=== PATIENT | male | born 1960 | race Caucasian/White ===

== ENCOUNTER 2020-10-08 14:16 | Outpatient (CLI) | payer BC, SELFPAY ==
--- NOTE | ~2020-10-08 | US_ITS ---
EXAMINATION: US venous doppler LE EXAM DATE: 10/08/2020 14:53 INDICATION: History DVT. TECHNIQUE: Multiple grayscale, color flow and Doppler images of the lower extremity deep venous syste ms bilaterally were obtained and reviewed. There is no prior study for comparison. FINDINGS: Right side: The right common femoral, femoral and profunda veins demonstrate normal color flow, respi ratory variation, augmentation and compressibility. Compressibility, color flow confirmed within the right popliteal, posterior tibial, and greater saphenous veins. Left side: The left common femoral, femoral and profunda veins demonstrate normal color flow, respira tory variation, augmentation and compressibility. Compressibility, color flow confirmed within the l eft popliteal, posterior tibial, and greater saphenous veins. IMPRESSION: 1. No lower extremity deep venous thrombosis bilaterally. Reviewed, dictated and finalized at location B.
== END 2020-10-08 14:17 | disposition home or self-care (01) ==
PROVIDERS: PCP Family Medicine; Visit Provider Internal Medicine Cardiovascular Disease
DX: Z86.718 Personal history of other venous thrombosis and embolism (principal)
CPT/HCPCS: 93970

== ENCOUNTER 2021-11-14 14:36 | Outpatient (CLI) | payer BC, SELFPAY ==
--- NOTE | ~2021-11-14 | XR_ITS ---
XR shoulder RT min 2V 11/14/2021 15:08 Indication: Right shoulder pain Procedure: 4 views right shoulder Comparison: No prior studies for comparison. Findings: There is mild polyarticular osteoarthritis of the right shoulder. No fracture or traumatic malalignment. No significant soft tissue abnormality. No foreign bodies. Impression: 1: Mild polyarticular osteoarthritis of the right shoulder. Reviewed, dictated and finalized at location A. Impression: 1: Mild polyarticular osteoarthritis of the right shoulder.
== END 2021-11-14 14:37 | disposition home or self-care (01) ==
PROVIDERS: PCP Family Medicine; Visit Provider Family Medicine
DX: M19.011 Primary osteoarthritis, right shoulder (principal)
CPT/HCPCS: 73030

== ENCOUNTER 2021-11-28 13:53 | Outpatient (CLI) | payer BC, SELFPAY ==
--- NOTE | ~2021-11-28 | US_ITS ---
EXAMINATION: US soft tissue head and neck DATE: 11/28/2021 14:18 INDICATION: Left posterior scalp lump. TECHNIQUE: Multiple grayscale and Doppler ultrasound images of the region of concern at the left post erior scalp were obtained. COMPARISON: None FINDINGS: 2.6 x 2.5 x 1.6 cm mass at the region of concern which demonstrates similar echogenicity and echotext ure as the surrounding subcutaneous fat. There is a second small subdermal complex hypoechoic cystic nodule measuring 10 x 6 x 4 mm with posterior acoustic enhancement and with thin hypoechoic tract ext ending to the skin surface consistent with an epidermoid cyst. IMPRESSION: 1. 2.6 x 2.5 x 1.6 cm mass at the region of concern with appearance consistent with and statistically most likely to represent a lipoma. 2. Additional 10 x 6 x 4 mm more superficial subdermal epidermoid cyst. Reviewed, dictated and finalized at location A.
== END 2021-11-28 13:54 ==
PROVIDERS: PCP Family Medicine; Visit Provider Plastic Surgery
DX: R22.1 Localized swelling, mass and lump, neck (principal); L72.0 Epidermal cyst
CPT/HCPCS: 76536

== ENCOUNTER 2021-12-26 10:53 | Observation (INO) | payer BC, SELFPAY ==
[2021-12-26] VITALS (17 sets, daily range): BP systolic 93–132; BP diastolic 43–99; PULSE 82–138; RESP 15–19; TEMP 36.2–36.8; O2SAT 95–100; BMI 53.0
--- NOTE | ~2021-12-26 | XR_ITS ---
XR chest 2V DATE: 12/26/2021 11:49 INDICATION: Lightheadedness. Atrial fibrillation. TECHNIQUE: PA and lateral views COMPARISON: 10/11/2012 PA and lateral chest FINDINGS: Normal heart size. There is aortic unfolding. No hilar or mediastinal enlargement. There is degenerative spurring and mild dextro scoliosis of the thoracic spine. No pulmonary infiltrate or consolidation, pleural effusion or pulmonary vascular or pneumothorax. IMPRESSION: No active cardiac pulmonary disease Reviewed, dictated and finalized at location B.
--- NOTE | 2021-12-26 11:22 | ECG_ITS ---
Measurements Intervals [place] Rate: 131 P: SD: 0 QRS: 76 QRSD: 177 T: -25 QT: 357 QTc: 527 Interpretive Statements ATRIAL FIBRILLATION WITH RAPID VENTRICULAR RESPONSE RIGHT BUNDLE BRANCH BLOCK ABNORMAL ECG NO PREVIOUS ECG AVAILABLE FOR COMPARISON Electronically Signed On 12-26-2021 11:56:38 CDT by Jamey Gomes D.O.
--- NOTE | 2021-12-26 11:42 | ED.GENADULT ---
HPI - General Adult General Chief complaint: Arrhythmia/Palpitations Stated complaint: irregular heartbeat Time Seen by Provider: 12/26/21 11:25 History of Present Illness HPI narrative: 59-year-old male presenting the emergency department for evaluation of rapid heart rate and generalized weakness. Patient states last night he felt warm and had difficulty sleeping. Patient states this morning symptoms persisted. He presented to his primary care physician for evaluation and was found to be in A. fib with RVR with a heart rate in the 130s to 140s. Patient does have a prior history of [place] in 2016 and follows up with Dr. Garber. Patient denies any prior history of atrial fibrillation. Patient does have history of ureteral stricture and does straight cath. Patient does have history of urinary tract infections, sometimes which he is asymptomatic. Related Data Home Medications Medication Instructions Recorded Confirmed multivitamin 1 tablet PO DAILY 09/03/20 12/26/21 nitroglycerin 0.4 mg sublingual 0.4 mg sublingual Q5M PRN Angina 09/03/20 12/26/21 tablet sildenafil (pulm.hypertension) 20 20 mg PO DAILY PRN Sexual Activity 12/26/21 12/26/21 mg tablet Allergies Allergy/AdvReac Type Severity Reaction Status Date / Time No Known Allergies Allergy Mild Unverified 12/26/21 10:01 Review of Systems Review of Systems: CONSTITUTIONAL: Patient reports feeling flushed and warm all night EYES: Denies visual changes, redness, or discharge. ENT: Denies rhinorrhea, congestion, sore throat, or otalgia. CARDIOVASCULAR: See HPI RESPIRATORY: Denies cough or dyspnea. GASTROINTESTINAL: Denies abdominal pain, nausea, vomiting, or diarrhea. GENITOURINARY: Denies dysuria or hematuria. SKIN: Denies rash or itching. MUSCULOSKELETAL: Denies back pain, joint pain, or myalgia. NEUROLOGIC: Denies headache, numbness, or weakness. [facility] Past Medical History Medical History Back pain Benign essential HTN CAD (coronary artery disease), [place] coronary artery Candidosis of skin Chronic pain Coronary artery disease with recent acute coronary syndrome and history of coronary revascularization Coronary stent patent Discoloration of skin Establishing care with new doctor, encounter for Extreme obesity Hyperlipidemia Hypertensive heart disease Left knee DJD Left leg DVT Lipoma Morbid obesity due to excess calories New onset type 2 diabetes mellitus SALLY (obstructive sleep apnea) Overeating Right knee DJD Right shoulder pain Rotator cuff tendonitis Shoulder arthritis Surgical History Surgical History H/O cystostomy History of cardiac cath History of left knee replacement Family History Family History (Updated 12/26/21 @ 15:32 by Heather Hein RN) Father Diabetes mellitus Cerebrovascular accident Mother Colon cancer Social History Social History (Updated 12/26/21 @ 14:57 by Marilyn Andersen NP) Social History: the patient is and lives with his daughter. he has 2 children. 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 At this point he does not have a durable power of attorney general for healthcare. The patient drinks once a month and denies any drugs but recently was started on phentermine for weight loss. 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 Gender identity (if verbalized by the patient): Male Sexual Orientation (if Verbalized by the Patient): Straight or Heterosexual Sp
[2021-12-26 11:43] LABS: Basophils Percent Auto 0.5 % (0.2-1.2); Eosinophils Absolute Auto 0.1 K/mm3 (0-0.3); Eosinophils Percent Auto 1.6 % (0-4.4); Hematocrit 52.8 % (42.0-52.0); Hemoglobin 17.4 g/dL (14.0-18.0); Immature Granulocyte Absolute 0.03 K/mm3 (0.00-0.031); Immature Granulocyte Percent A 0.3 % (0-0.5); Lymphocytes Absolute Auto 2.06 K/mm3 (0.9-3.2); Lymphocytes Percent Auto 23.9 % (18.3-44.2); Mean Corpuscular Hemoglobin 29.1 pg (26-34); Mean Corpuscular Volume 88.3 fl (80-100); Mean Platelet Volume 10.9 fl (7.4-10.4); Monocytes Absolute Auto 0.6 K/mm3 (0.1-0.6); Monocytes Percent Auto 7.4 % (2.6-8.5); Neutrophils Absolute Auto 5.7 K/mm3 (1.3-6.7); Neutrophils Percent Auto 66.3 % (45.5-73.1); Platelet Count Result 229 k/mm3 (150-375); Red Blood Count 5.98 M/mm3 (4.6-6.20); Red Cell Distribution Width 14.6 % (11.5-14.5); White Blood Count 8.6 K/mm3 (4.5-10.0)
[2021-12-26 11:53] LABS: INR 1.1; Prothrombin Time 13.4 Seconds (11.1-14.7)
[2021-12-26 11:54] LABS: Partial Thromboplastin Time 37.4 SECONDS (22.3-36.8)
[2021-12-26 11:55] LABS: Alanine Aminotransferase 31 U/L (6-50); Albumin Level 4.5 g/dL (3.5-5.1); Alkaline Phosphatase 89 U/L (38-126); Anion Gap 16 mmol/L (8-16); Aspartate Amino Transferase 28 U/L (17-59); Blood Urea Nitrogen 21 mg/dL (9-20); Calcium 9.5 mg/dL (8.4-10.2); Carbon Dioxide 26 mmol/L (22-30); Chloride 97 mmol/L (98-107); Estimated CRCL calculation 128 ml/min; Estimated Glomerular Filt Rate > 60; Glucose 127 mg/dL (65-110); Potassium 3.1 mmol/L (3.4-5.0); Sodium 139 mmol/L (137-145)
[2021-12-26 12:04] LABS: NT Pro B Type Natriuretic Pept 2440 pg/mL (5-100)
[2021-12-26] MEDS: dilTIAZem HCl INJ 25 MG/5 ML VIAL 10 MG IV PUSH (12:04)
[2021-12-26] MEDS: dilTIAZem 100 MG/100 ML 100 MG/100 ML BAG IV CONT (12:04)
[2021-12-26 12:07] LABS: Troponin I < 0.012 ng/mL (0.000-0.034)
--- NOTE | 2021-12-26 13:02 | PC.NURSE ---
Diltiazem titrated to 7.[address] Gómez in room
[2021-12-26] MEDS: POTASSIUM CHLORIDE 20 MEQ PACKET (FOR LIQUID) 40 MEQ PO (13:03)
--- NOTE | 2021-12-26 13:12 | ECG_ITS ---
Measurements Intervals [place] Rate: 115 P: 30 TX: 89 QRS: 68 QRSD: 171 T: 1 QT: 359 QTc: 498 Interpretive Statements ATRIAL FLUTTER/TACHYCARDIA WITH RAPID VENTRICULAR RESPONSE RIGHT BUNDLE BRANCH BLOCK COMPARED TO ECG 12/26/2021 11:25:13 NO SIGNIFICANT CHANGES Electronically Signed On 12-26-2021 14:38:03 CDT by Jamey Gomes D.O.
--- NOTE | 2021-12-26 14:19 | PM.IMHP ---
H&P: HPI History of Present Illness Date/Time: 12/26/21 14:19 Chief Complaint: Palpitation Narrative: this is the obese 61-year-old male patient who came to the emergency room with generalized weakness and irregular heart rate. The patient stated that last night he felt warm and was having difficulty sleeping. The patient recently was placed on phentermine. He has no prior history of atrial fibrillation. But he does have a history of coronary artery disease hyperlipidemia and hypertension. The patient was found to be in AFib with RVR in the heart rate of 130s to 140s. The patient had a myocardial infarction in 2016 and a stent was placed at that time. The patient was given Cardizem IV push and then started on a drip. The patient was also given potassium supplement for potassium level of 3.1. Baseline troponin was noted to be 0.012. BNP is 2440. Chest x-ray was read as no acute cardiac pulmonary disease. The patient stated that he is diabetic but is controlled with diet and his blood sugar was 127 today. The patient stated he was placed on metformin but never took it. Cardiology has been consulted. His drug screen was negative. The patient is being admitted to observation status on the date of service of 12/26/2021 Review of Systems Review of Systems: see HPI All systems reviewed & are unremarkable except as noted in HPI and below Constitutional: Constitutional: Reports as per HPI and Reports no additional constitutional complaints Eyes: Eyes: Reports as per HPI and Reports no additional eye complaints ENT: Reports system reviewed and no additional complaints, except as documented and Reports Normal hearing present Cardiovascular: Cardiovascular: Reports no additional cardiovascular complaints Respiratory: Respiratory: Reports no additional respiratory complaints and Reports no additional respiratory complaints Gastrointestinal: Gastrointestinal: Reports as per HPI and Reports no additional gastrointestinal complaints Musculoskeletal: Musculoskeletal: Reports no additional musculoskeletal complaints Integumentary/Breasts: Skin/Breast: Reports system reviewed and no additional complaints, except as docu and Reports as per HPI Neurologic: Reports system reviewed and no additional complaints, except as documented, Reports as per HPI and Reports Normal hearing present Psychiatric: Psychiatric: Reports no additional psychiatric complaints and Reports as per HPI Endocrine: Endocrine: Reports no additional endocrine complaints Hematologic/Lymphatic: Hematologic/Lymphatic: Reports no additional hematologic/lymphatic complaints Allergic/Immunologic: Allergic/Immunologic: Reports no additional allergic/immunologic complaints [facility] Past Medical History Medical History Back pain Benign essential HTN CAD (coronary artery disease), [place] coronary artery Candidosis of skin Chronic pain Coronary artery disease with recent acute coronary syndrome and history of coronary revascularization Coronary stent patent Discoloration of skin Establishing care with new doctor, encounter for Extreme obesity Hyperlipidemia Hypertensive heart disease Left knee DJD Left leg DVT Lipoma Morbid obesity due to excess calories New onset type 2 diabetes mellitus SALLY (obstructive sleep apnea) Overeating Right knee DJD Right shoulder pain Rotator cuff tendonitis Shoulder arthritis Surgical History Surgical History H/O cystostomy History of cardiac cath History of left knee replacement Family History Family History Father Diabetes mellitus Mother Colon cancer Social History Social History (Updated 12/26/21 @ 14:57 by Marilyn Andersen NP) Social History: the patient is and lives with his daughter. he has 2 children. 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
[2021-12-26 14:25] LABS: Appearance Urine Clear (Clear); Bilirubin Urine 1+ (Negative); Blood Urine Negative (Negative); Color Urine Yellow (Yellow); Glucose Urine UA Negative (Negative); Ketones Urine 1+ mg/dL (Negative); Leukocyte Esterase Ur 1+ LEU/UL (Negative); Nitrate Urine Negative (Negative); Protein Urine Negative (Negative); Urobilinogen Urine 0.2 mg/dL (<2.0); pH Urine 5.5 (5.0-9.0)
[2021-12-26 14:33] LABS: Mucus Urine Rare /lpf; RBC Urine 0-2 /hpf (0-2); Squamous Epithelial Cell Urine Rare /hpf (Few)
[2021-12-26 14:35] LABS: Add Urine Microscopic? YES
[2021-12-26 14:40] LABS: Amphetamine Screen Urine Negative (Negative); Barbiturate Screen Urine Negative (Negative); Benzodiazepines Screen Urine Negative (Negative); Cannabinoid Screen Urine Negative (Negative); Cocaine Screen Urine Negative (Negative); Methadone Screen Urine Negative (Negative); Opiate Screen Urine Negative (Negative); Phencyclidine Screen Urine Negative (Negative)
[2021-12-26 15:07] LABS: Troponin I < 0.012 ng/mL (0.000-0.034)
--- NOTE | 2021-12-26 15:25 | ADMGEN ---
This patient, Jr Herrera, was admitted to IMU Room 204-01. Patient/family oriented to hospital policies and general routines including ID bracelet, bed and alarms, visiting hours, pain management, procedures, bathroom and other care routines, personal items, smoking policy, room service/diet, and visiting hours. Information on how to activate the Rapid Response Team has been discussed. Patient/Family are encouraged to report perceived risks to care and to ask questions if they do not understand what they are told or what they should do.
[2021-12-26 16:17] LABS: Glucose Point of Care 116 mg/dl (65-105)
--- NOTE | 2021-12-26 16:31 | PM.CNCAR ---
Assessment and Plan Assessment and plan (1) Atrial flutter with rapid ventricular response: Code(s): I48.92 - Unspecified atrial flutter Status: Acute Plan This is a 61-year-old gentleman with atrial flutter with rapid ventricular response. Looks more like atypical atrial flutter on ECG. He has atrial flutter of unknown duration. There are no acute onset of symptoms of tachycardia or palpitations today that allow me to determine that this began today or not. In any event his heart rate is well controlled with diltiazem intravenously and he has been anticoagulated with Lovenox. He has underlying coronary artery disease with previous OH/PCI in 2016 at least by his history he says that he has had normal left ventricular function following the event. I am going to therefore continue diltiazem orally to provide rate control as we give him oral diltiazem we can wean off the IV infusion. He needs to be orally systemically anticoagulated. He received Lovenox today I would anticipate starting Xarelto tomorrow. Once he is rate controlled and anticoagulated he probably can be discharged and outpatient cardioversion can be considered subsequently. I will order another echocardiogram. I would also recommend not treating a gentleman like this with phentermine as this could also be a trigger for this arrhythmia. He reports to be compliant with his CPAP treatment for his sleep apnea. Boris Lee MD [facility] History of Present Illness History of Present Illness Consult date/time: 12/26/21 16:31 Reason For Visit: Atrial Fib,Weakness,Elevated BNP Narrative: This is a 61-year-old patient I am seeing at the request of the hospitalist with the diagnosis of atrial fibrillation. He is unknown to me prior to this encounter. According to the records he is a gentleman with a history of coronary artery disease. He says that he was found to have coronary disease in 2016 when he presented to hospital in [place] with symptoms of diaphoresis and paresthesias throughout the entire upper half of his body including both arms. He was airlifted to a hospital with PCI capability and underwent right coronary artery stenting. He states that he did very well after this and had a normal left ventricular ejection fraction following recovery and has not had any additional cardiac problems. Apparently in the interim he has become established with my partner, Dr. Garber for ongoing cardiovascular care and follow-up. His other significant comorbidities include hypertension and morbid obesity, sleep apnea as well as non insulin-dependent diabetes. He was in his usual state of health and went to his primary care physician for a previously scheduled appointment today. While he was there he states he was feeling poorly with the feeling flushed and lightheaded. Upon examination he was found to be tachycardic he was sent to the emergency room from the office where he was found to be in atrial flutter with 2-1 conduction and was admitted to the hospital for further evaluation. I do not have any old EKGs in the hospital records for my review as I dictate this note. I have not yet been down to the office to look at his office records. Likely there are some old EKGs down there. In any event he was placed on intravenous diltiazem and given an injection of Lovenox 1 milligram/kilogram he is in room 204 in the IMU feeling well and offering no other complaints. According to the record he was started on phentermine earlier in the year for appetite suppression. Current BMI is 53.1 Review of Systems Constitutional: Constitutional: Reports lethargy Eyes: Eyes: Reports no additional eye complaints ENT: Reports system reviewed and no additional complaints, except as documented Cardiovascular: Cardiovascular: Reports no additional cardiovascular complaints Respiratory: Respiratory: Reports no additional respiratory complaints Gastrointestinal: Gastrointestinal: Reports no miguel
[2021-12-26] MEDS: dilTIAZem HCL CD 180 MG CAP.ER.24H PO (18:22)
[2021-12-26 21:02] LABS: Glucose Point of Care 205 mg/dl (65-105)
[2021-12-26] MEDS: FUROSEMIDE INJ 40 MG/4 ML VIAL IV PUSH (21:21)
[2021-12-26] MEDS: ENOXAPARIN 100 MG/ML SYRINGE SUB-Q (21:22)
[2021-12-26] MEDS: ENOXAPARIN 80 MG/0.8 ML SYRINGE SUB-Q (21:22)
[2021-12-26] MEDS: ACETAMINOPHEN 325 MG TABLET 650 MG PO (23:17)
[2021-12-26] MEDS: dilTIAZem 100 MG/100 ML 100 MG/100 ML BAG 7.5 MG IV CONT (23:18)
[2021-12-27] VITALS (11 sets, daily range): BP systolic 96–130; BP diastolic 55–72; PULSE 49–88; RESP 14–20; TEMP 36.3–36.8; O2SAT 97–98
--- NOTE | 2021-12-27 | ECHO_ITS ---
Patient Info Name: Jr Herrera Age: 61 years : 1960 Gender: Male Ht: 73 in Wt: 403 lbs BSA: 3.17 m2 HR: 62 bpm BP: 114 / 56 mmHg Heart Rhythm: Sinus Rhythm Technical Quality: Good Exam Date: 12/27/2021 8:01 AM Exam Location: [facility] Patient Status: Outpatient Admit Date: 12/26/2021 Staff Ordering Physician: Boris Lee MD Vascular Technologist Sonographer: Janette Jaffe [facility] Attending Provider: Hawk Jama MD Referring Physician: Jesus FOX; Exam Type: CA echo doppler color flow Study Info Indications I48.0 - Paroxysmal atrial fibrillation Complete two-dimensional, color flow and Doppler transthoracic echocardiogram is performed. Summary 1. Complete two-dimensional, color flow and Doppler transthoracic echocardiogram is performed. 2. Left ventricular hypertrophy with normal dimensions and normal contractility. 3. Grade 1 diastolic noncompliance. 4. Dilated left atrium. 5. Mild mitral annular calcification. 6. Trivial amount of aortic valve regurgitation. Left Ventricle Left ventricular chamber dimension is normal. Left ventricular systolic function is normal, estimated at 60-65%. There is mild concentric increased left ventricular wall thickness. The left ventricular diastolic function is grade I diastolic dysfunction. Right Ventricle Right ventricular chamber dimension is mildly enlarged. Right ventricular systolic function is normal. Left Atria Left atrial chamber dimension is moderately enlarged. Right Atria Right atrial chamber dimension is normal. Aortic Valve The aortic valve is normal. There is trace aortic valve regurgitation. Pulmonic Valve The pulmonic valve is not well visualized. Mitral Valve The mitral valve has normal leaflets. The mitral valve annulus is mildly calcified. Tricuspid Valve The tricuspid valve leaflets are normal. Pericardium/Pleural The pericardium appears normal. Aorta The aortic root size at the sinus of Valsalva is normal. Left Ventricular Outflow Tract Name Value Normal LVOT 2D LVOT Diameter 2.3 cm LVOT Doppler LVOT Peak Gradient 3 mmHg LVOT Mean Gradient 2 mmHg LVOT VTI 21 cm LVOT VTI/AV VTI Ratio 0.8 LVOT Stroke Volume 88 ml LVOT CO 5.2 l/min LVOT CI 1.6 l/min/m2 Pulmonic Valve Name Value Normal PV Doppler PV Peak Gradient 4 mmHg Mitral Valve Name Value Normal MV Doppler
--- NOTE | 2021-12-27 01:38 | ECG_ITS ---
Measurements Intervals [place] Rate: 67 P: 61 MN: 196 QRS: 75 QRSD: 180 T: 34 QT: 516 QTc: 547 Interpretive Statements SINUS RHYTHM RIGHT BUNDLE BRANCH BLOCK ABNORMAL ECG COMPARED TO ECG 12/26/2021 13:18:41 SINUS RHYTHM NOW PRESENT Electronically Signed On 12-27-2021 7:28:35 CDT by Jamey Gomes D.O.
[2021-12-27 06:15] LABS: Basophils Absolute Auto 0.1 K/mm3 (0.0-0.1); Basophils Percent Auto 0.5 % (0.2-1.2); Eosinophils Absolute Auto 0.2 K/mm3 (0-0.3); Immature Granulocyte Absolute 0.04 K/mm3 (0.00-0.031); Immature Granulocyte Percent A 0.4 % (0-0.5); Lymphocytes Absolute Auto 2.06 K/mm3 (0.9-3.2); Lymphocytes Percent Auto 22.2 % (18.3-44.2); Mean Corpuscular HGB Conc 32.7 g/dl (32-36); Mean Corpuscular Hemoglobin 29.1 pg (26-34); Mean Corpuscular Volume 89.1 fl (80-100); Mean Platelet Volume 10.7 fl (7.4-10.4); Monocytes Absolute Auto 0.8 K/mm3 (0.1-0.6); Monocytes Percent Auto 8.6 % (2.6-8.5); Neutrophils Absolute Auto 6.1 K/mm3 (1.3-6.7); Neutrophils Percent Auto 66.3 % (45.5-73.1); Platelet Count Result 228 k/mm3 (150-375); Red Cell Distribution Width 14.6 % (11.5-14.5); White Blood Count 9.3 K/mm3 (4.5-10.0)
[2021-12-27 06:27] LABS: Alanine Aminotransferase 29 U/L (6-50); Albumin Level 3.9 g/dL (3.5-5.1); Alkaline Phosphatase 75 U/L (38-126); Anion Gap 9 mmol/L (8-16); Aspartate Amino Transferase 24 U/L (17-59); Bilirubin,Total 0.7 mg/dL (0.2-1.3); Blood Urea Nitrogen 26 mg/dL (9-20); CRP 1.4 mg/dL (<1.0); Carbon Dioxide 29 mmol/L (22-30); Chloride 101 mmol/L (98-107); Cholesterol 143 mg/dL (0-200); Estimated CRCL calculation 106 ml/min; Estimated Glomerular Filt Rate > 60; Glucose 134 mg/dL (65-110); HDL Direct 31 mg/dL; Hemoglobin A1C 6.6 % (<5.7); Magnesium 1.8 mg/dL (1.6-2.3); Potassium 3.1 mmol/L (3.4-5.0); Sodium 139 mmol/L (137-145); Triglycerides 143 mg/dL (<150)
[2021-12-27 06:37] LABS: LDL Cholesterol Direct 77 mg/dL
[2021-12-27 08:27] LABS: Glucose Point of Care 172 mg/dl (65-105)
--- NOTE | 2021-12-27 08:44 | PM.PNCARD ---
Progress Note: A&P Assessment and Plan (1) Atrial flutter with rapid ventricular response: Code(s): I48.92 - Unspecified atrial flutter Status: Acute Plan This is a 61-year-old gentleman with coronary disease remote history of emergency PCI as detailed in the in consult note. Admitted to the hospital now with PA fibrillation. He has been in sinus rhythm after being treated with diltiazem. He is now on oral diltiazem in sinus rhythm and is asymptomatic. In my opinion he can be discharged at this time. He should remain on diltiazem and Xarelto for his systemic anticoagulation. We will have the office reach out to him for follow-up arrangements after the holiday weekend. Boris Lee MD [facility] Subjective Date/time seen: Date of service: 12/27/21 08:44 Interval history: Follow-up visit in this 61-year-old man with: Paroxysmal atrial fibrillation as well as history of coronary artery disease and previous PCI. Patient came in yesterday with AF/RVR. Following treatment with IV diltiazem a he did convert back to sinus rhythm. On oral diltiazem today in sinus rhythm and is asymptomatic. He was anticoagulated from the emergency room with Lovenox. Feels well offers no complaints this morning Exam Const: General: comfortable and no acute distress Other: Obese man comfortable cooperative no distress HENMT: Mouth: Yes moist mucous membranes Eyes: General: appearance normal, both eyes and all related structures Neck: Neck: supple Other: Carotid pulses are normal bilaterally impossible to assess JVD given his body habitus Resp: Auscultation: clear to auscultation bilaterally Other: Breath sounds are clear but diminished in both lung alcaraz Cardio: Rate: regular rate Rhythm: regular rhythm GI: GI Palp: Yes Soft to palpation Auscultation: normal bowel sounds Skin: General skin exam: normal color Neuro: Other: Alert and oriented x3 Extrem: Other: Adequate distal perfusion Objective Data Vital Signs Vital Signs: Vital Signs - 24 hr 12/26/21 11:19 12/26/21 11:33 12/26/21 12:04 Temperature 36.8 C Pulse Rate 131 H 130 H 131 H Respiratory Rate 16 Blood Pressure 120/72 112/82 Pulse Oximetry 100 Oxygen Delivery Room Air 12/26/21 12:35 12/26/21 13:03 12/26/21 14:25 Temperature Pulse Rate 98 121 H 103 H Respiratory Rate 15 18 Blood Pressure 111/68 129/95 H Pulse Oximetry 97 97 Oxygen Delivery 12/26/21 11:52 12/26/21 12:46 12/26/21 13:16 Temperature Pulse Rate 129 H 96 116 H Respiratory Rate 19 18 16 Blood Pressure 121/78 112/69 113/87 Pulse Oximetry 95 96 98 Oxygen Delivery 12/26/21 14:45 12/26/21 16:00 12/26/21 16:00 Temperature 36.4 C 36.6 C Pulse Rate 83 110 H 82 Respiratory Rate 18 18 Blood Pressure 120/90 113/81 Pulse Oximetry 98 98 Oxygen Delivery 12/26/21 18:00 12/26/21 20:00 12/26/21 20:00 Temperature 36.2 C L Pulse Rate 120 H 138 H 138 H Respiratory Rate 18 Blood Pressure 132/99 H Pulse Oximetry 97 Oxygen Delivery 12/26/21 20:00 12/26/21 22:00 12/26/21 23:18 Temperature Pulse Rate 91 114 H Respiratory Rate Blood Pressure Pulse Oximetry 97 Oxygen Delivery Room Air 12/26/21 23:18 12/26/21 23:57 12/27/21 00:00 Temperature 36.3 C L Pulse Rate 114 H 88 88 Respiratory Rate 18 Blood Pressure 93/43 L Pulse Oximetry 97 Oxygen Delivery 12/27/21 00:00 12/27/21 01:42 12/27/21 04:00 Temperature 36.8 C Pulse Rate 66 63 Respiratory Rate 20 Blood Pressure 103/56 L 114/56 L Pulse Oximetry 97 98 Oxygen Delivery CPAP 12/27/21 02:00 12/27/21 04:00 12/27/21 04:00 Temperature Pulse Rate 63 60 Respiratory Rate Blood Pressure Pulse Oximetry 98 Oxygen Delivery CPAP 12/26/21 23:10 12/26/21 23:10 12/27/21 04:35 Temperature Pulse Rate 84 69 Respiratory Rate 15 20 Blood Pressure Pulse Oximetry 98 98 97 Oxygen Delivery Room Air Auto
[2021-12-27] MEDS: METOPROLOL SUCCINATE EXT REL 50 MG TABCR PO (09:22)
[2021-12-27] MEDS: dilTIAZem HCL CD 180 MG CAP.ER.24H PO (09:22)
[2021-12-27] MEDS: ATORVASTATIN 40 MG TABLET 80 MG BY MOUTH (09:23)
[2021-12-27] MEDS: ASPIRIN 81 MG ENTERIC TABLET PO (09:23)
[2021-12-27] MEDS: POTASSIUM CHLORIDE 20 MEQ PACKET (FOR LIQUID) 40 MEQ PO (10:04)
--- NOTE | 2021-12-27 12:09 | PM.DS ---
DS: Admitting Diagnosis Discharge Date December 27, 2021 Admitting Diagnosis AFib DS: Discharge Diagnosis Discharge Diagnosis (1) Atrial fibrillation with rapid ventricular response: Code(s): I48.91 - Unspecified atrial fibrillation Status: Acute Assessment and Plan: Patient was admitted for atrial fibrillation. He was started on Cardizem drip. Spontaneously converted. Will be sent home on anticoagulation and Cardizem orally. Follow-up cardiology (2) Elevated brain natriuretic peptide (BNP) level: Code(s): R79.89 - Other specified abnormal findings of blood chemistry Status: Acute Assessment and Plan: Echo noted. Lasix on discharge and potassium. (3) Dizziness: Code(s): R42 - Dizziness and giddiness Status: Acute Assessment and Plan: - Could be related to the AFib with RVR. (4) New onset type 2 diabetes mellitus: Code(s): E11.9 - Type 2 diabetes mellitus without complications Status: Acute Assessment and Plan: Continue home meds (5) Extreme obesity: Code(s): E66.8 - Other obesity Status: Acute Assessment and Plan: - Due to excessive calorie intake. (6) Hyperlipidemia: Code(s): E78.5 - Hyperlipidemia, unspecified Status: Acute Assessment and Plan: - Continue with atorvastatin. - Check lipid panel (7) CAD (coronary artery disease), [place] coronary artery: Code(s): I25.10 - Atherosclerotic heart disease of [place] coronary artery without angina pectoris Status: Acute Assessment and Plan: - the patient has a history of coronary artery disease. He has had a cardiac stent in the past. - Continue with atorvastatin Continue aspirin (8) Hypertensive heart disease: Code(s): I11.9 - Hypertensive heart disease without heart failure Status: Acute Assessment and Plan: - The patient is currently on a Cardizem drip. - His antihypertensive medications were held due to the Cardizem drip at this time. Further recommendation per Cardiology. DS: Summary Hospital Course Hospital Course: See discharge plan diagnoses Time Spent with Patient Time attestation: Total time spent providing and/or coordinating discharge services: Exam Const: General: cooperative, comfortable, no acute distress, well developed, alert, awake and Physically active Nutritional Appearance: average body habitus and well nourished Orientation/consciousness: oriented to person, oriented to place, oriented to time and patient oriented x3 Limitations: no limitations HENMT: Head: normal to inspection, No palpable skull fracture present, normocephalic and atraumatic Ears: hearing grossly normal bilaterally and external ears normal General nose exam: Normal external nose present and Normal nares present Eyes: General: appearance normal, both eyes and all related structures Alignment and Position: alignment normal Periorbital: periorbital findings normal Eyelids: eyelids normal Sclera: sclerae normal Pupils: Equal, round and reactive pupils present EOM: EOMs intact bilaterally Neck: Neck: normal visual inspection, full ROM, no lymphadenopathy, trachea midline and supple Other: enlarged neck girth Chest: Chest palpation & inspection: normal inspection of the chest Resp: Effort & Inspection: normal respiratory effort Auscultation: clear to auscultation bilaterally Cardio: Palpation: normal PMI Rate: tachycardic Rhythm: abnormal rhythm irregularly irregular Heart sounds: S1 normal heart sound present and S2 normal heart sound present Peripheral pulses: Peripheral pulses 2+ throughout GI: Inspection: Pannus present and obesity Auscultation: normal bowel sounds Rectal Exam: deferred Back/Spine/Pelvis: Cervical Spine: cervical ROM normal Skin: General skin exam: normal color Lesions: no lesions Rashes: no rashes Trauma: no lacerations or abrasions Wounds: no wounds Hair: normal Nail
[2021-12-27 12:21] LABS: Glucose Point of Care 163 mg/dl (65-105)
== END 2021-12-27 12:50 | disposition home or self-care (01) ==
LOC: ANHED 13:57 → ANHIMU 12-27 12:09
PROVIDERS: Nurse Practitioner; Admitting Provider Internal Medicine; Emergency Provider Emergency Medicine; PCP Family Medicine; Visit Provider Chiropractor
DX: I48.91 Unspecified atrial fibrillation (principal); I48.92 Unspecified atrial flutter; R53.1 Weakness; R79.89 Other specified abnormal findings of blood chemistry; R42 Dizziness and giddiness; E87.6 Hypokalemia; E11.9 Type 2 diabetes mellitus without complications; I25.2 Old myocardial infarction; I11.9 Hypertensive heart disease without heart failure; I25.10 Atherosclerotic heart disease of native coronary artery without angina pectoris; Z95.5 Presence of coronary angioplasty implant and graft; E78.5 Hyperlipidemia, unspecified; E66.01 Morbid (severe) obesity due to excess calories; Z68.43 Body mass index [BMI] 50.0-59.9, adult; G47.33 Obstructive sleep apnea (adult) (pediatric); Z86.718 Personal history of other venous thrombosis and embolism; Z87.891 Personal history of nicotine dependence; Z79.82 Long term (current) use of aspirin; Z79.84 Long term (current) use of oral hypoglycemic drugs; Z79.899 Other long term (current) drug therapy
CPT/HCPCS: 36415; 71046; 80053; 80061; 80307; 81001; 82948; 83036; 83735; 83880; 84443; 84484; 85025; 85610; 85730; 86140; 87086; 87088; 93005; 93306; 96365; 96366; 96372; 96374; 96375; 96376; 99284; 99285; A9270; G0378; G0379; J1650; J1940

== ENCOUNTER 2022-05-23 14:08 | Observation (INO) | payer BC, SELFPAY ==
[2022-05-23] VITALS (31 sets, daily range): BP systolic 135–183; BP diastolic 84–123; PULSE 89–153; RESP 16–25; TEMP 36.2–36.6; O2SAT 97–100; BMI 52.8
--- NOTE | ~2022-05-23 | XR_ITS ---
EXAMINATION: XR chest 1V portable DATE: 05/23/2022 14:38 INDICATION: Chest pain on inspiration. TECHNIQUE: A single frontal view of the chest was obtained. COMPARISON: Chest 2 views 12/26/2021, CT abdomen and pelvis 11/13/2014 FINDINGS: There is mild atelectasis in left lower lung zone. No pleural effusion or pneumothorax. The heart size is normal. IMPRESSION: 1. Mild atelectasis in left lower lung zone. Reviewed, dictated and finalized at location A. DENT HALL DIRECTOR
--- NOTE | ~2022-05-23 | CT_ITS ---
EXAMINATION: CTA chest PE protocol DATE: 05/23/2022 18:46 INDICATION: Pleuritic chest pain. TECHNIQUE: Computed tomography angiography (CTA) of the chest was performed with 100 mL Omnipaque-350 intravenous contrast timed to evaluate the pulmonary arteries. Coronal maximum intensity projection 3D-reconstructions were created by the technologist. Automated exposure control and iterative reconst ruction technique were employed. The dose-length product was 1109.20 mGy-cm. COMPARISON: CT abdomen and pelvis 11/13/2014, cervical spine MRI 08/26/2011 FINDINGS: The lungs demonstrate mild atelectasis. There is a 7 mm nodule in right lower lobe. No pleu ral effusion. There is a chronic 1.8 cm nodule in right thyroid lobe, likely benign. The heart size i s normal. There are coronary artery calcifications. No pericardial effusion. There is no pulmonary em bolus. There is diffuse hepatic steatosis. There are bridging endplate osteophytes at multiple levels in the spine, consistent with diffuse idiopathic skeletal hyperostosis (DISH). There is mild thoraci c spondylosis. IMPRESSION: 1. No pulmonary embolus. 2. 7 mm pulmonary nodule, probably benign. Noncontrast low-dose chest CT is recommended in 6 months. Reviewed, dictated and finalized at location A. DESIGNER IMPRESSION: 1. No pulmonary embolus. 2. 7 mm pulmonary nodule, probably benign. Noncontrast low-dose chest CT is rec ommended in 6 months.
--- NOTE | 2022-05-23 14:11 | ECG_ITS ---
Measurements Intervals [place] Rate: 112 P: [place]: 0 QRS: 17 QRSD: 164 T: -16 QT: 352 QTc: 482 Interpretive Statements SINUS TACHYCARDIA RIGHT BUNDLE BRANCH BLOCK MINIMAL Q WAVES- INFERIOR LEADS BASELINE ARTIFACT- II, III, AVF ABNORMAL ECG COMPARED TO ECG 12/27/2021 00:40:04 SINUS TACHYCARDIA NOW PRESENT Electronically Signed On 05-23-2022 19:20:33 SENIOR CYTOGENETICS LABORATORY DIRECTOR by Jamey Gomes D.O.
--- NOTE | 2022-05-23 14:53 | ED.CHESTPAIN ---
HPI - Chest Pain General Chief Complaint: Chest Pain Stated Complaint: Pain in chest on inspiration Time Seen by Provider: 05/23/22 14:40 Source: RN notes reviewed History of Present Illness HPI narrative: Patient presents emerged department from home for chest pain. Patient states pain has been present for the past 18 hours pain is located over the midsternal chest and does not radiate it is been constant since that time but is worse with deep inspiration and movement and improved with rest. He denies any trauma or injury denies any shortness of breath he denies any fevers or chills abdominal pain nausea vomiting or any other symptoms. States he took ibuprofen approximately 3 hours ago for the pain with no relief patient does have a history of atrial fibrillation is on Xarelto states he has taken all of his normal medications today Related Data Home Medications Medication Instructions Recorded Confirmed multivitamin 1 tablet PO DAILY 09/03/20 04/07/22 nitroglycerin 0.4 mg sublingual 0.4 mg sublingual Q5M PRN Angina 09/03/20 04/07/22 tablet sildenafil (pulm.hypertension) 20 20 mg PO DAILY PRN Sexual Activity 12/26/21 04/07/22 mg tablet semaglutide 1 mg/dose (2 mg/1.5 1 mg subcut WEEKLY 02/24/22 04/07/22 mL) subcutaneous pen injector (Ozempic) Allergies Allergy/AdvReac Type Severity Reaction Status Date / Time No Known Allergies Allergy Mild Verified 05/23/22 14:34 Review of Systems Review of Systems: Gen.: Denies fevers or chills ENT: Denies congestion Respiratory: Denies shortness of breath or cough CV: See HPI GI: Denies abdominal pain nausea, emesis or diarrhea Musculoskeletal: Denies back pain or muscle pain Neuro: Denies numbness, tingling, weakness or focal weakness Skin: Denies rash Except as documented, all other systems reviewed and negative PMFSH Past Medical History Medical History Back pain Benign essential HTN CAD (coronary artery disease), [place] coronary artery Candidosis of skin Chronic pain Coronary artery disease with recent acute coronary syndrome and history of coronary revascularization Coronary stent patent Discoloration of skin Establishing care with new doctor, encounter for Extreme obesity Hyperlipidemia Hypertensive heart disease Left knee DJD Left leg DVT Lipoma Morbid obesity due to excess calories New onset type 2 diabetes mellitus SALLY (obstructive sleep apnea) Overeating Right knee DJD Right shoulder pain Rotator cuff tendonitis Shoulder arthritis Surgical History Surgical History H/O cystostomy History of cardiac cath History of left knee replacement Family History Family History Father Diabetes mellitus Cerebrovascular accident Mother Colon cancer Social History Social History Social History: the patient is and lives with his daughter. he has 2 children. 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 At this point he does not have a durable power of manager system for healthcare. The patient drinks once a month and denies any drugs but recently was started on phentermine for weight loss. 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 Gender identity (if verbalized by the patient): Male Sexual Orientation (if Verbalized by the Patient): Straight or Heterosexu
[2022-05-23 14:57] LABS: Basophils Percent Auto 0.3 % (0.2-1.2); Eosinophils Absolute Auto 0.1 K/mm3 (0-0.3); Eosinophils Percent Auto 1.2 % (0-4.4); Hematocrit 46.5 % (42.0-52.0); Hemoglobin 15.5 g/dL (14.0-18.0); Immature Granulocyte Absolute 0.03 K/mm3 (0.00-0.031); Immature Granulocyte Percent A 0.3 % (0-0.5); Lymphocytes Percent Auto 12.4 % (18.3-44.2); Mean Corpuscular HGB Conc 33.3 g/dl (32-36); Mean Corpuscular Hemoglobin 29.4 pg (26-34); Mean Corpuscular Volume 88.1 fl (80-100); Mean Platelet Volume 10.7 fl (7.4-10.4); Monocytes Absolute Auto 0.7 K/mm3 (0.1-0.6); Monocytes Percent Auto 7.4 % (2.6-8.5); Neutrophils Absolute Auto 7.6 K/mm3 (1.3-6.7); Neutrophils Percent Auto 78.4 % (45.5-73.1); Platelet Count Result 202 k/mm3 (150-375); Red Blood Count 5.28 M/mm3 (4.6-6.20); Red Cell Distribution Width 14.2 % (11.5-14.5); White Blood Count 9.6 K/mm3 (4.5-10.0)
[2022-05-23 15:11] LABS: Alanine Aminotransferase 26 U/L (6-50); Alkaline Phosphatase 77 U/L (38-126); Anion Gap 9 mmol/L (8-16); Aspartate Amino Transferase 19 U/L (17-59); Bilirubin,Total 0.9 mg/dL (0.2-1.3); Blood Urea Nitrogen 19 mg/dL (9-20); Calcium 8.9 mg/dL (8.4-10.2); Carbon Dioxide 25 mmol/L (22-30); Chloride 105 mmol/L (98-107); Estimated CRCL calculation 162 ml/min; Estimated Glomerular Filt Rate > 60; Glucose 110 mg/dL (65-110); Lipase 85 U/L (23-300); Potassium 3.5 mmol/L (3.4-5.0); Sodium 139 mmol/L (137-145)
[2022-05-23 15:15] LABS: INR 1.5; Prothrombin Time 17.1 Seconds (11.1-14.7)
[2022-05-23 15:18] LABS: Partial Thromboplastin Time 48.2 SECONDS (22.3-36.8)
[2022-05-23 15:22] LABS: Troponin I < 0.012 ng/mL (0.000-0.034)
[2022-05-23] MEDS: ASPIRIN 81 MG CHEWABLE TABLET 324 MG PO (16:19)
[2022-05-23] MEDS: MORPHINE SULFATE (*CRX) 2 MG/ML INJ IV PUSH (16:19)
--- NOTE | 2022-05-23 16:44 | PM.IMHP ---
H&P: HPI History of Present Illness Date/Time: 05/23/22 16:44 Chief Complaint: chest pain Narrative: Patient presents emerged department from home for chest pain noticed lower mid sternal chest pain since last night which is not bad at that time went to bed woke up with the chest pain got worse mid afternoon today nonexertional worse when she takes deep breath. Constant pain at x9 or 10 in intensity. Denies any cough fever chills a feels a little short of breath. No abdominal pain nausea vomiting. Did not do anything strenuous yesterday. No obvious injury noted. It took some ibuprofen earlier today with noted the. He had been seen cardiology and had recently started on sotalol for his atrial fibrillation/flutter. He is not sure this is related to the symptoms. His pain is localized and nonradiating. His heart rate has elevated but not hold reports of hypoxia Review of Systems Review of Systems: - CONSTITUTIONAL: Denies weight loss, fever and chills. - HEENT: Denies changes in vision and hearing - RESPIRATORY: Denies SOB and cough. - CV: Denies palpitations and reports CP. - GI: Denies abdominal pain, nausea, vomiting and diarrhea. - : Denies dysuria and urinary frequency. - MSK: Denies myalgia and joint pain. - SKIN: Denies rash and pruritus. - NEUROLOGICAL: Denies headache and syncope. - PSYCHIATRIC: Denies recent changes in mood. Denies anxiety and depression. All systems reviewed & are unremarkable except as noted in HPI and below PMFSH Past Medical History Medical History Back pain Benign essential HTN CAD (coronary artery disease), [place] coronary artery Candidosis of skin Chronic pain Coronary artery disease with recent acute coronary syndrome and history of coronary revascularization Coronary stent patent Discoloration of skin Establishing care with new doctor, encounter for Extreme obesity Hyperlipidemia Hypertensive heart disease Left knee DJD Left leg DVT Lipoma Morbid obesity due to excess calories New onset type 2 diabetes mellitus SALLY (obstructive sleep apnea) Overeating Right knee DJD Right shoulder pain Rotator cuff tendonitis Shoulder arthritis Surgical History Surgical History H/O cystostomy History of cardiac cath History of left knee replacement Family History Family History Father Diabetes mellitus Cerebrovascular accident Mother Colon cancer Social History Social History Social History: the patient is and lives with his daughter. he has 2 children. 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 At this point he does not have a durable power of deputy commonwealth's attorney for healthcare. The patient drinks once a month and denies any drugs but recently was started on phentermine for weight loss. 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 Gender identity (if verbalized by the patient): Male Sexual Orientation (if Verbalized by the Patient): Straight or Heterosexual Spiritual care concerns: No Meds Home Medications and Allergies Home Medications Medication Instructions Recorded Confirmed Type multivitamin 1 tablet PO DAILY 09/03/20 04/07/22 History nitroglycerin 0.4 mg sublingual 0.4 mg sublingual Q5M PRN Angina 09/03/20 04/07/22 History tablet sildenafil (pulm
[2022-05-23 18:17] LABS: Troponin I < 0.012 ng/mL (0.000-0.034)
[2022-05-23 18:37] LABS: Influenza A QL RT-PCR Negative (Negative); Influenza B QL RT-PCR Negative (Negative); RSV RNA, RT-PCR Negative (Negative); SARS-CoV-2 RNA PCR Negative
--- NOTE | 2022-05-23 20:13 | ADMGEN ---
This patient, Jr Herrera, was admitted to IMU Room 206-02 on 05/23/22 at 1957. Patient/family oriented to hospital policies and general routines including ID bracelet, bed and alarms, visiting hours, pain management, procedures, bathroom and other care routines, personal items, smoking policy, room service/diet, and visiting hours. Information on how to activate the Rapid Response Team has been discussed. Patient/Family are encouraged to report perceived risks to care and to ask questions if they do not understand what they are told or what they should do.
[2022-05-23] MEDS: ATORVASTATIN 40 MG TABLET 80 MG PO (21:01)
[2022-05-23] MEDS: RIVAROXABAN 20 MG TABLET PO (21:01)
[2022-05-23] MEDS: MORPHINE SULFATE (*CRX) 4 MG/ML INJ IV PUSH (21:53)
[2022-05-23] MEDS: METOPROLOL TARTRATE INJ 5 MG/5 ML VIAL 2.5 MG IV PUSH (23:11)
[2022-05-23 23:29] LABS: Troponin I < 0.012 ng/mL (0.000-0.034)
[2022-05-24] VITALS (15 sets, daily range): BP systolic 89–132; BP diastolic 59–87; PULSE 74–152; RESP 16–22; TEMP 35.9–36.6; O2SAT 97–100
[2022-05-24] MEDS: SOTALOL HCL 80 MG TABLET PO ×2 (01:00→08:09)
[2022-05-24] MEDS: TIZANIDINE HCL 4 MG TABLET 8 MG PO ×2 (01:00→08:09)
[2022-05-24] MEDS: oxyCODONE/ACETAMINOPHEN (*CRX) 5-325 MG TABLET 1 TABLET PO ×3 (01:02→15:50)
[2022-05-24] MEDS: oxyCODONE HCL (*CRX) 2.5 MG TAB IR PO ×3 (01:02→15:50)
[2022-05-24 04:17] LABS: Basophils Percent Auto 0.2 % (0.2-1.2); Eosinophils Absolute Auto 0.1 K/mm3 (0-0.3); Eosinophils Percent Auto 1.5 % (0-4.4); Hematocrit 43.6 % (42.0-52.0); Hemoglobin 14.1 g/dL (14.0-18.0); Immature Granulocyte Absolute 0.04 K/mm3 (0.00-0.031); Immature Granulocyte Percent A 0.5 % (0-0.5); Lymphocytes Absolute Auto 1.05 K/mm3 (0.9-3.2); Lymphocytes Percent Auto 12.1 % (18.3-44.2); Mean Corpuscular HGB Conc 32.3 g/dl (32-36); Mean Corpuscular Volume 89.7 fl (80-100); Mean Platelet Volume 10.9 fl (7.4-10.4); Monocytes Absolute Auto 0.8 K/mm3 (0.1-0.6); Monocytes Percent Auto 9.5 % (2.6-8.5); Neutrophils Absolute Auto 6.6 K/mm3 (1.3-6.7); Neutrophils Percent Auto 76.2 % (45.5-73.1); Platelet Count Result 203 k/mm3 (150-375); Red Blood Count 4.86 M/mm3 (4.6-6.20); Red Cell Distribution Width 14.6 % (11.5-14.5); White Blood Count 8.7 K/mm3 (4.5-10.0)
[2022-05-24 04:25] LABS: Alanine Aminotransferase 21 U/L (6-50); Albumin Level 3.5 g/dL (3.5-5.1); Alkaline Phosphatase 63 U/L (38-126); Anion Gap 8 mmol/L (8-16); Aspartate Amino Transferase 16 U/L (17-59); Blood Urea Nitrogen 18 mg/dL (9-20); Calcium 8.2 mg/dL (8.4-10.2); Carbon Dioxide 25 mmol/L (22-30); Chloride 105 mmol/L (98-107); Estimated CRCL calculation 127 ml/min; Estimated Glomerular Filt Rate > 60; Glucose 144 mg/dL (65-110); Potassium 3.2 mmol/L (3.4-5.0); Sodium 138 mmol/L (137-145)
[2022-05-24] MEDS: hydroCHLOROthiazide 25 MG TABLET PO (08:09)
[2022-05-24] MEDS: LOSARTAN POTASSIUM 100 MG TABLET PO (08:10)
[2022-05-24] MEDS: CLOBETASOL PROPIONATE 0.05% CREAM 15 GM 1 APPLIC TOPICAL (08:11)
--- NOTE | 2022-05-24 08:42 | PM.CNCAR ---
Assessment and Plan Assessment and plan (1) Atrial flutter: Code(s): I48.92 - Unspecified atrial flutter Status: Acute (2) Chest pain: Code(s): R07.9 - Chest pain, unspecified Status: Acute Plan This is a 61-year-old man with coronary disease, previous RCA intervention, morbid obesity and sleep apnea presenting to the hospital with chest pain that is inflammatory chest wall pain in my opinion there is no evidence of acute coronary syndrome and this is unrelated to his atrial arrhythmia. With regard to his arrhythmia we will switch him back to diltiazem and metoprolol which is his request/decision. He says that he does not feel well taking sotalol and does not wish to take it any longer. I will start some anti-inflammatory medication for this chest pain and as an outpatient consider referral to electrophysiology for consideration of alternative means of rhythm control. He is wishing to take antiarrhythmic drug therapy at this time Boris Lee MD [facility] History of Present Illness History of Present Illness Consult date/time: 05/24/22 08:42 Reason For Visit: chest pain, atrial flutter Narrative: This is a 61-year-old man that I am seeing at the request of the hospitalist this morning because of atrial arrhythmias. Patient is known to me from office follow-up with a history of both coronary artery disease and atrial fibrillation. He came to the hospital emergency room last evening because of the development of chest pain that occurred yesterday. He states the discomfort was relatively sudden in onset and began in the morning with symptoms of sharp central chest discomfort that occurs when he tries to take a breath. With any respiratory effort he says he has relatively intense sharp chest pain. The discomfort is not associated with a sense of being short of breath nausea vomiting or diaphoresis. He became concerned about this and came to the emergency room for evaluation. In the emergency room his electrocardiogram shows atrial flutter with a right bundle branch block pattern which is unchanged from old ECGs. His flutter is slow atypical flutter with has heart rate is in the 100-110. He appeared to be hemodynamically stable otherwise. He was admitted to the hospital for further evaluation and management. He has had his series of troponin levels done all of which have remained negative. He is being seen in this situation in the hospital today. The patient is known to have coronary artery disease and in 2016 presented with ischemic chest pain elsewhere and underwent a right coronary interventional procedure and has done well since then. I became acquainted with this patient in October of 2021 when he came to this hospital with an episode of paroxysmal atrial fibrillation. He was given diltiazem which provided rate control he then spontaneously converted back to sinus rhythm he had been managed with diltiazem in the beta-daphne as well as Xarelto since then. As it happens I saw this patient in the office just a couple of weeks ago and he was reporting episodes of intermittent palpitations where he was having atrial fibrillation identified by his smart watch lasting about 8-10 hours per episode. At that time I elected to transition him from the previous medical regimen to sotalol and see him in about a month in for follow-up. The patient is ECG now rather than atrial fibrillation shows a the atypical atrial flutter as described above. The patient is otherwise not having any other complaints. He did want to tell me that he thought that he felt better on the combination of metoprolol and diltiazem and does not wish to take sotalol any longer. Had a long discussion with the patient about rhythm control versus rate control strategies for these types of atrial arrhythmias. Review of Systems Constitutional: Constitutional: Reports no additional constitutional complaints and Reports lethargy Eyes: Eyes: Reports no additio
[2022-05-24] MEDS: IBUPROFEN 600 MG TABLET PO (09:21)
[2022-05-24] MEDS: ASPIRIN 81 MG ENTERIC TABLET PO (12:52)
--- NOTE | 2022-05-24 13:26 | PM.DS ---
DS: Admitting Diagnosis Discharge Date 05/24/2022 Admitting Diagnosis chest pain DS: Discharge Diagnosis Discharge Diagnosis (1) PAF (paroxysmal atrial fibrillation): Code(s): I48.0 - Paroxysmal atrial fibrillation Status: Acute (2) Atrial flutter with rapid ventricular response: Code(s): I48.92 - Unspecified atrial flutter Status: Acute (3) Diastolic dysfunction without heart failure: Code(s): I51.89 - Other ill-defined heart diseases Status: Acute (4) Coronary artery disease with recent acute coronary syndrome and history of coronary revascularization: Code(s): I25.10 - Atherosclerotic heart disease of [place] coronary artery without angina pectoris; I24.9 - Acute ischemic heart disease, unspecified; Z98.61 - Coronary angioplasty status Status: Acute (5) Muscle spasms of neck: Code(s): M62.838 - Other muscle spasm Status: Acute (6) Psoriasis: Code(s): L40.9 - Psoriasis, unspecified Status: Acute (7) Diabetes mellitus: Code(s): E11.9 - Type 2 diabetes mellitus without complications Status: Acute (8) Extreme obesity: Code(s): E66.8 - Other obesity Status: Acute (9) Chest pain: Code(s): R07.9 - Chest pain, unspecified Status: Acute DS: Summary Hospital Course Hospital Course: # chest pain:? Atypical localized.? Pleuritic in nature.? Ekg with nonspecific st t cahnges. initial troponin neg. get serial ce. which remain negative out ACS. cardiology consulted.? Discussed other differentials.? Musculoskeletal/costochondritis.? Possibility of PE.? Agreeable for CTA to further evaluate . CTA done negative for PE. Does show 7 mm pulmonary nodule probably benign noncontrast low-dose CT chest recommended in 6 months. # newly detected 7 mm pulmonary nodule repeat low-dose CT chest in 6 months. # aflutter/afib: ekg seems like sinus rhythm. monitor on telemetry. Was in out of a flutter with controlled rate. He had felt unwell since switched to sotalol week 2. He wanted to switch back to metoprolol and diltiazem which she was on prior to sotalol. Cardiology had discussed this with him and decision was made to switch back to metoprolol and diltiazem. He will continue to follow up with Cardiology on outpatient basis. Will continue on Xarelto for anticoagulation. # morbid obeisty BMI 53 on semaglutide.? Has not been taking his phentermine # DM2 on semaglutide. # HTN: Resume home medication # HLP:? Medication # SALLY on CPAP # Chronic back pain: sees pain mgmt. on COT # DVT proph: xarelto Time Spent with Patient Time attestation: Total time spent providing and/or coordinating discharge services: 35 minutes Exam Narrative: GENERAL: The patient is well developed, not in acute distress HEENT: Nonicteric sclerae, PERRLA, EOMI. Oropharynx clear. Moist mucous membranes. Conjunctivae appear well perfused. CHEST: Chest wall is nontender. HEART: Regular rate and rhythm without murmur, rubs, or gallops localized tenderness in right parasternal border LUNGS: Clear to auscultation bilaterally. no respiratory distress ABDOMEN: Soft, positive bowel sounds, non-tender, no organomegaly. SKIN: No rash, no excessive bruising, petechiae, or purpura. NEUROLOGIC: Cranial nerves II-XII intact, alert and oriented x 3, no gross motor deficits EXTREMITIES: no edema, cyanosis or clubbing DS: Data Data Completed and Pending Labs on day of discharge: Labs from last 24 hours 05/24/22 05/24/22 05/23/22 03:48 03:48 22:26 WBC 8.7 RBC 4.86 Hgb 14.1 Hct 43.6 MCV 89.7 MCH 29.0 MCHC 32.3 RDW 14.6 H Plt Count 203 MPV 10.9 H Immature Gran % (Auto) 0.5 Neut % (Auto) 76.2 H Lymph % (Auto) 12.1 L [place] % (Auto) 9.5 H Eos % (Auto) 1.5 Baso % (Auto) 0.2 Lymph # (Auto) 1.05 [place] # (Auto) 0.8 H Eos # (Auto) 0.1 Baso # (Auto) 0.0 Abs Immat Gran (auto) 0.04 H Absolute Neuts (auto) 6.6
[2022-05-24] MEDS: POTASSIUM CHLORIDE 20 MEQ TABLET 40 MEQ PO (13:27)
--- NOTE | 2022-05-24 15:15 | PC.NURSE ---
1500: Patient called to report that he has no pain and woyuld like to be discharged. Dr Holt notified and he expressed concern for the patient's low blood pressure. Repeat VS; YBC=834/87.
== END 2022-05-24 16:25 | disposition home or self-care (01) ==
LOC: ANHED 17:00 → ANHIMU 18:55
PROVIDERS: Emergency Medicine; Admitting Provider Internal Medicine; Emergency Provider Emergency Medicine; PCP Family Medicine; Visit Provider Internal Medicine
DX: R07.9 Chest pain, unspecified (principal); I48.92 Unspecified atrial flutter; I48.0 Paroxysmal atrial fibrillation; Z79.01 Long term (current) use of anticoagulants; I10 Essential (primary) hypertension; I25.10 Atherosclerotic heart disease of native coronary artery without angina pectoris; E66.01 Morbid (severe) obesity due to excess calories; Z68.43 Body mass index [BMI] 50.0-59.9, adult; E11.9 Type 2 diabetes mellitus without complications; Z87.891 Personal history of nicotine dependence; Z86.718 Personal history of other venous thrombosis and embolism; Z96.652 Presence of left artificial knee joint; I51.89 Other ill-defined heart diseases; L40.9 Psoriasis, unspecified; M62.838 Other muscle spasm; Z98.61 Coronary angioplasty status; I24.9 Acute ischemic heart disease, unspecified; Z20.822 Contact with and (suspected) exposure to COVID-19
CPT/HCPCS: 36415; 71045; 71275; 80053; 83690; 84484; 85025; 85610; 85730; 87637; 93005; 96374; 96375; 96376; 99285; A9270; G0378; J2270; Q9967

== ENCOUNTER 2022-07-21 10:58 | Outpatient (CLI) | payer BC, SELFPAY ==
--- NOTE | ~2022-07-21 | XR_ITS ---
Clinical Indication: Cough PA and lateral views of the chest: Comparison: 05/23/2022 Findings: The lungs are clear, without evidence of focal consolidation or pleural effusion. Cardiome diastinal silhouette is within normal limits. Bones and soft tissues are unremarkable. Impression: Normal chest. Reviewed, dictated and finalized at location . Impression: Normal chest.
[2022-07-21 11:57] LABS: Basophils Absolute Auto 0.1 K/mm3 (0.0-0.1); Basophils Percent Auto 0.6 % (0.2-1.2); Eosinophils Absolute Auto 0.2 K/mm3 (0-0.3); Eosinophils Percent Auto 2.2 % (0-4.4); Hematocrit 46.6 % (42.0-52.0); Hemoglobin 14.9 g/dL (14.0-18.0); Immature Granulocyte Absolute 0.05 K/mm3 (0.00-0.031); Immature Granulocyte Percent A 0.6 % (0-0.5); Lymphocytes Absolute Auto 2.11 K/mm3 (0.9-3.2); Lymphocytes Percent Auto 27.3 % (18.3-44.2); Mean Corpuscular Volume 90.7 fl (80-100); Mean Platelet Volume 10.1 fl (7.4-10.4); Monocytes Absolute Auto 0.6 K/mm3 (0.1-0.6); Monocytes Percent Auto 7.8 % (2.6-8.5); Neutrophils Absolute Auto 4.8 K/mm3 (1.3-6.7); Neutrophils Percent Auto 61.5 % (45.5-73.1); Platelet Count Result 249 k/mm3 (150-375); Red Blood Count 5.14 M/mm3 (4.6-6.20); Red Cell Distribution Width 14.9 % (11.5-14.5); White Blood Count 7.7 K/mm3 (4.5-10.0)
[2022-07-21 12:22] LABS: Alanine Aminotransferase 30 U/L (6-50); Albumin Level 4.1 g/dL (3.5-5.1); Alkaline Phosphatase 86 U/L (38-126); Anion Gap 11 mmol/L (8-16); Aspartate Amino Transferase 25 U/L (17-59); Bilirubin,Total 0.8 mg/dL (0.2-1.3); Blood Urea Nitrogen 19 mg/dL (9-20); Carbon Dioxide 25 mmol/L (22-30); Chloride 102 mmol/L (98-107); Estimated Glomerular Filt Rate > 60; Glucose 151 mg/dL (65-110); Potassium 3.5 mmol/L (3.4-5.0); Sodium 138 mmol/L (137-145)
[2022-07-21 12:56] LABS: Hemoglobin A1C 7.1 % (<5.7)
== END 2022-07-21 10:59 | disposition home or self-care (01) ==
PROVIDERS: PCP Family Medicine; Visit Provider Nurse Practitioner Gerontology
DX: R05.9 Cough, unspecified (principal); E11.9 Type 2 diabetes mellitus without complications
CPT/HCPCS: 36415; 71046; 80053; 83036; 85025

== ENCOUNTER 2022-07-27 13:34 | Outpatient (CLI) | payer BC, SELFPAY ==
--- NOTE | ~2022-07-27 | MR_ITS ---
EXAMINATION: MR shoulder RT wo con DATE: 07/27/2022 14:32 INDICATION: Right shoulder pain TECHNIQUE: Magnetic resonance imaging (MRI) of the right shoulder was performed without intravenous c ontrast. Sequences included axial PD-weighted FS FSE, coronal oblique PD-weighted FS FSE, coronal obl ique T2-weighted FS FSE, sagittal PD-weighted FS FSE, and sagittal T1-weighted SE. COMPARISON: None. FINDINGS: Coracoacromial arch: The acromion undersurface is curved in morphology (type II). The coracoacromial ligament is normal. M oderate acromioclavicular osteoarthritis. Rotator cuff: Mild supraspinatus tendinopathy with severe articular sided tear extending 1.5 cm AP along the superi or facet footplate of the tendon with localized full-thickness perforations. The bursal side of the t endon overlying the tear appears frayed with small focal full-thickness perforations with residual le ft-sided tendon material of indeterminate residual functional integrity. Mild subscapularis and infra spinatus tendinopathy without tear. The teres minor tendon is normal however there is severe fatty at rophy of the portion of the teres minor muscle associated with the tendinous insertion. No evident at rophy of the portion of the muscle belly associated with the muscular insertion. No evident impinging lesion identified along the course of the axillary nerve including at the quadrilateral space. Remai nder of the rotator cuff musculature is unremarkable. Biceps tendon, glenoid labrum and glenohumeral cartilage: Long head of the biceps tendon is normal. Small SLAP tear along the superior glenoid labrum. Mild par tial thickness cartilage loss with smooth chondral surface and without degenerative subchondral bliss es along both the inferomedial and anterosuperior medial aspect of the humeral head. Fluid: Small glenohumeral joint effusion with synovitis at the axillary recess. There is proportional extens ion of fluid along with mild synovitis along the long head biceps tendon sheath. There is also small amount of fluid in the subacromial/subdeltoid bursa likely arising from the joint space and extending through the full-thickness rotator cuff perforation. No loose osteochondral bodies. Bones: Normal marrow signal with no edema, fracture or pathologic marrow replacing process. IMPRESSION: 1. Severe articular sided tear along the superior facet footplate of the supraspinatus tendon with sm all amount of residual frayed tendon material along the bursal surface which is of indeterminate func tional integrity with focal small full-thickness perforations. 2. Mild glenohumeral osteoarthritis with SLAP tear at the superior glenoid labrum. 3. Moderate acromioclavicular osteoarthritis. 4. Fatty atrophy of the portion of the teres minor muscle belly attached to the still intact tendon o f indeterminate etiology. Reviewed, dictated and finalized at location A. IMPRESSION: 1. Severe articular sided tear along the superior facet footplate of the supras pinatus tendon with small amount of residual frayed tendon material along the b ursal surface which is of indeterminate functional integrity with focal small f ull-thickness perforations. 2. Mild glenohumeral osteoarthritis with SLAP tear at the superior glenoid labr um. 3. Moderate acromioclavicular osteoarthritis. 4. Fatty atrophy of the portion of the teres minor muscle belly attached to the still intact tendon of indeterminate etiology.
== END 2022-07-27 13:35 | disposition home or self-care (01) ==
PROVIDERS: PCP Family Medicine; Visit Provider Nurse Practitioner Family
DX: M19.011 Primary osteoarthritis, right shoulder (principal); S46.811A Strain of other muscles, fascia and tendons at shoulder and upper arm level, right arm, initial encounter; X58.XXXA Exposure to other specified factors, initial encounter
CPT/HCPCS: 73221

== ENCOUNTER 2023-03-10 09:47 | Outpatient (CLI) | payer BC, SELFPAY ==
[2023-03-10 11:39] LABS: Hemoglobin A1C 6.4 % (<5.7)
[2023-03-10 12:21] LABS: Creatinine Urine 59.2 mg/dL
[2023-03-10 12:26] LABS: MALB Creatinine Ratio 12.5 mg/g (0-30); Microalbumin Urine Random 7.4 mg/L (0-16.7)
== END 2023-03-10 09:48 | disposition home or self-care (01) ==
LOC: ANHLAB 09:48
PROVIDERS: PCP Family Medicine; Referring Provider Family Medicine; Visit Provider Physician Assistant
DX: E11.21 Type 2 diabetes mellitus with diabetic nephropathy (principal); I10 Essential (primary) hypertension
CPT/HCPCS: 36415; 82043; 83036

== ENCOUNTER 2023-03-11 10:40 | Outpatient (CLI) | payer BC, SELFPAY ==
--- NOTE | ~2023-03-11 | CT_ITS ---
CT Scan of the Chest without Contrast: Clinical Indication: Solitary pulmonary nodule Technique: Contiguous sections were acquired throughout the chest without intravenous contrast. Dose reduction technique was used on this scan by utilizing automated exposure control and iterative recon struction technique. The dose-length product (DLP) was 677.74 mGy-cm. COMPARISON: 05/15/2022 Findings: There is no evidence of any significant mediastinal, hilar or axillary lymphadenopathy. Coronary vero ry calcium cages are present. There is no evidence of pleural or pericardial effusion. Stable 7 mm nodule noted in the posterior, superior segment right lower lobe. No new pulmonary nodule identified. Images through the upper abdomen reveal small layering gallstones/gallbladder sludge. Impression: Stable 7 mm right lower lobe pulmonary nodule. Cholelithiasis/gallbladder sludge. Reviewed, dictated and finalized at [facility]. ALT SCREED OPERATOR Impression: Stable 7 mm right lower lobe pulmonary nodule. Cholelithiasis/gallbladder sludge.
== END 2023-03-11 10:41 | disposition home or self-care (01) ==
LOC: ANHIMG 10:43
PROVIDERS: PCP Family Medicine; Visit Provider Physician Assistant
DX: R91.1 Solitary pulmonary nodule (principal); K80.20 Calculus of gallbladder without cholecystitis without obstruction
CPT/HCPCS: 71250

== ENCOUNTER 2023-06-23 10:46 | Outpatient (CLI) | payer BC, SELFPAY ==
[2023-06-23 11:42] LABS: Basophils Percent Auto 0.4 % (0.2-1.2); Eosinophils Absolute Auto 0.2 K/mm3 (0-0.3); Eosinophils Percent Auto 2.7 % (0-4.4); Hemoglobin 15.3 g/dL (14.0-18.0); Immature Granulocyte Absolute 0.03 K/mm3 (0.00-0.031); Immature Granulocyte Percent A 0.4 % (0-0.5); Lymphocytes Absolute Auto 1.71 K/mm3 (0.9-3.2); Lymphocytes Percent Auto 24.1 % (18.3-44.2); Mean Corpuscular HGB Conc 31.2 g/dl (32-36); Mean Corpuscular Hemoglobin 27.9 pg (26-34); Mean Corpuscular Volume 89.4 fl (80-100); Mean Platelet Volume 11.1 fl (7.4-10.4); Monocytes Absolute Auto 0.5 K/mm3 (0.1-0.6); Monocytes Percent Auto 6.8 % (2.6-8.5); Neutrophils Absolute Auto 4.7 K/mm3 (1.3-6.7); Neutrophils Percent Auto 65.6 % (45.5-73.1); Platelet Count Result 186 k/mm3 (150-375); Red Blood Count 5.48 M/mm3 (4.6-6.20); Red Cell Distribution Width 16.4 % (11.5-14.5); White Blood Count 7.1 K/mm3 (4.5-10.0)
[2023-06-23 11:55] LABS: Alanine Aminotransferase 40 U/L (6-50); Albumin Level 4.1 g/dL (3.5-5.1); Alkaline Phosphatase 96 U/L (38-126); Anion Gap 5 mmol/L (8-16); Aspartate Amino Transferase 36 U/L (17-59); Bilirubin,Total 0.8 mg/dL (0.2-1.3); Blood Urea Nitrogen 20 mg/dL (9-20); Calcium 9.9 mg/dL (8.4-10.2); Carbon Dioxide 30 mmol/L (22-30); Chloride 105 mmol/L (98-107); Cholesterol 138 mg/dL (0-200); Estimated Glomerular Filt Rate > 60; Glucose 159 mg/dL (65-110); HDL Direct 32 mg/dL; Potassium 3.7 mmol/L (3.4-5.0); Sodium 140 mmol/L (137-145); Triglycerides 123 mg/dL (<150)
[2023-06-23 11:58] LABS: Appearance Urine Clear (Clear); Bacteria Urine None Seen /hpf; Bilirubin Urine Negative (Negative); Blood Urine Negative (Negative); Color Urine Yellow (Yellow); Glucose Urine UA Negative (Negative); Ketones Urine Negative (Negative); Leukocyte Esterase Ur Trace LEU/UL (Negative); Nitrate Urine Negative (Negative); Non Pathogenic Casts 0-2; Protein Urine 2+ mg/dL (Negative); RBC Urine 0-2 /hpf (0-2); Specific Grav Ur 1.014 (1.001-1.035); Squamous Epithelial Cell Urine None seen /hpf (Few); Urobilinogen Urine 0.2 mg/dL (<2.0)
[2023-06-23 12:02] LABS: Add Urine Microscopic? YES
[2023-06-23 12:09] LABS: LDL Cholesterol Direct 86 mg/dL
[2023-06-23 12:23] LABS: Hemoglobin A1C 8.4 % (<5.7)
== END 2023-06-23 10:47 | disposition home or self-care (01) ==
LOC: ANHLAB 10:48
PROVIDERS: PCP Family Medicine; Visit Provider Physician Assistant
DX: R30.0 Dysuria (principal); E11.9 Type 2 diabetes mellitus without complications; E78.5 Hyperlipidemia, unspecified; I10 Essential (primary) hypertension
CPT/HCPCS: 36415; 80053; 80061; 81001; 83036; 85025; 87086

== ENCOUNTER 2023-07-03 10:52 | Outpatient (CLI) | payer BC, SELFPAY ==
--- NOTE | ~2023-07-03 | MR_ITS ---
EXAMINATION: MR lumbar spine wo con DATE: 07/03/2023 11:36 INDICATION: Lumbar radicular pain. Low back pain. TECHNIQUE: Magnetic resonance imaging (MRI) of the lumbar spine was performed without intravenous con trast. COMPARISON: None FINDINGS: Bone alignment is normal. There is mild chronic anterior wedging of T12 vertebral bodies. T here is mildly decreased disc height at L4-L5. The distal spinal cord signal intensity is normal. The conus medullaris is at L1. The following disc levels are specifically discussed: L1-L2: There is a left central extrusion. There is moderate bilateral facet joint osteoarthritis. The re is no neural foraminal stenosis. There is mild central canal stenosis. L2-L3: The disc is bulging. There is moderate bilateral facet joint osteoarthritis. There is mild cassie ateral neural foraminal stenosis. There is no central canal stenosis. L3-L4: The disc is bulging. There is severe bilateral facet joint osteoarthritis. There is hypertroph y of the ligamentum flavum. There is mild bilateral neural foraminal stenosis. There is mild central canal stenosis. L4-L5: The disc is bulging and has an annular fissure. There is severe bilateral facet joint osteoart hritis. There is hypertrophy of the ligamentum flavum. There is mild bilateral neural foraminal steno sis. There is mild central canal stenosis. L5-S1: The disc does not extend beyond the endplate margin. There is severe bilateral facet joint ost eoarthritis. There is mild right neural foraminal stenosis. There is no central canal stenosis. IMPRESSION: 1. Mild lumbar spondylosis. Reviewed, dictated and finalized at location E. ENT FINANCIAL SPECIALIST IMPRESSION: 1. Mild lumbar spondylosis.
== END 2023-07-03 10:53 ==
LOC: MICIMG 10:53
PROVIDERS: PCP Family Medicine; Visit Provider Nurse Practitioner Family
DX: M47.26 Other spondylosis with radiculopathy, lumbar region (principal)
CPT/HCPCS: 72148

== ENCOUNTER 2024-03-17 11:58 | Outpatient (CLI) | payer BC, SELFPAY ==
[2024-03-17 12:41] LABS: Alanine Aminotransferase 33 U/L (6-50); Albumin Level 4.5 g/dL (3.5-5.1); Alkaline Phosphatase 77 U/L (38-126); Anion Gap 6 mmol/L (4-12); Aspartate Amino Transferase 31 U/L (17-59); Blood Urea Nitrogen 24 mg/dL (9-20); Calcium 9.5 mg/dL (8.4-10.2); Carbon Dioxide 29 mmol/L (22-30); Chloride 104 mmol/L (98-107); Estimated Glomerular Filt Rate > 60; Glucose 121 mg/dL (65-110); Sodium 139 mmol/L (137-145)
== END 2024-03-17 11:59 | disposition home or self-care (01) ==
LOC: ANHLAB 11:59
PROVIDERS: PCP Family Medicine; Visit Provider Family Medicine
DX: I10 Essential (primary) hypertension (principal); E11.9 Type 2 diabetes mellitus without complications
CPT/HCPCS: 36415; 80053; 83036

== ENCOUNTER 2024-06-02 14:56 | Outpatient (CLI) | payer OTHER, SELFPAY ==
--- NOTE | ~2024-06-02 | XR_ITS ---
CHEST RADIOGRAPH, PA AND LATERAL CLINICAL HISTORY: R05.9 - Cough, unspecified . COMPARISON: 07/21/2022 TECHNIQUE: PA and lateral views of the chest. FINDINGS The cardiomediastinal silhouette is unremarkable. The lungs are clear. Visualized osseous structures and soft tissues are unremarkable. IMPRESSION: No focal infiltrate or effusion. Reviewed, dictated and finalized at location A. [employer] SALES SPECIALIST
--- OUTSIDE RECORDS SUMMARY | 2024-06-02 15:00 | XMS_ITS | Referral Summary ---
Author Organization [facility] Address [address] [place] [address] Care Team Providers Care Substance Abuse Counselor Name Role Phone Boris Lee MD Unavailable [phone] Lizbeth Mccoy MD Primary Care Provider + Source Comments [facility],non-owned Affiliates and Associated Physician Practices is amultiple site organization consisting of ambulatory clinics and hospital sitesin [place], [place], [place] and [place]. This disclosure is being madepursuant to the Care Everywhere program and may not contain all information available regarding this patient. Last updated 18.[facility] Allergies No known active allergies Medications * Be aware that medications may not be up to date on this document. Alwaysverify current medications with the patient. Medication Sig Dispensed Refills Start Date End Date Status metoprolol succinate XL 24hr (Toprol XL) 100 MG tablet Take 1 (one) tablet by mouth once daily 08/02/2022 Active Xarelto 20 MG tablet Take 1 (one) tablet by mouth as directed 08/10/2022 Active tiZANidine (Zanaflex) 4 MG tablet Take 1 (one) tablet by mouth as directed 08/04/2022 Active losartan-hydroCHL OROthiazide (Hyzaar) 100-25 MG tablet Take 1 (one) tablet by mouth once daily 08/03/2022 Active aspirin EC (Ecotrin) 81 MG tablet Take 1 (one) tablet by mouth once daily Active oxyCODONE-acetami nophen (Percocet) 7.5-325 MG tablet Take 1 (one) tablet by mouth every 6 hours as needed for Pain Active docusate sodium (Colace) 100 MG capsule Take 1 (one) capsule by mouth 2 times daily 60 capsule 09/28/2022 Active Additional Information Patient taking differently:100 mg Oral2 TIMES DAILY PRN, Constipation, Reported on 03/17/2023 metFORMIN (Glucophage) 500 MG tablet Take 1 (one) tablet by mouth 2 times daily with morning and evening meal 12/04/2022 Active Farxiga 5 MG tablet Take 1 (one) tablet by mouth once daily 01/11/2023 Active atorvastatin (Lipitor) 80 MG tablet Take 1 (one) tablet by mouth at bedtime Active dilTIAZem SR 24hr (Dilt-XR) 240 MG capsule Take 1 (one) capsule by mouth every morning 01/06/2023 Active ibuprofen (Motrin) 800 MG tablet Take 1 (one) tablet by mouth every 8 hours as needed 04/05/2023 Active Ozempic, 2 MG/DOSE, 8 MG/3ML pen Inject 2 (two) mg subcutaneously every 7 days 04/04/2023 Active Active Problems Problem Noted Date Diagnosed Date Body mass index (BMI) 50.0-59.9, adult 03/17/2023 Morbid (severe) obesity due to excess calories 0 01/06/2023 03/17/2023 CAD (coronary artery disease) 08/19/2022 History of heart attack 08/19/2022 08/20/19 History of deep vein thrombosis of lower extremi ty 08/19/2022 08/19/2022 Varicose veins of both lower extremities with pa in 08/19/2022 08/19/2022 Paroxysmal atrial fibrillation 05/05/2022 0 08/19/2022 Paroxysmal atrial flutter 01/30/20222022 Chronic low back pain 01/20/2019 08/19/2022 Hypertension 01/20/2019 08/19/2022 Psoriasis 01/20/2019 08/19/2022 Opioid dependence 01/20/2019 08/19/2022 Hyperlipidemia 01/20/2019 08/19/2022 Coronary arteriosclerosis 01/20/20192022 Sleep apnea 01/20/2019 08/19/2022 Urethral stricture 01/20/2019 08/19/2022 Social History Tobacco Use Types Packs/Day Years Used Date Smoking Tobacco: Never Smokeless Tobacco: Never Tobacco Cessation:Counseling Given: Not Answered Alcohol Use Standard Drinks/Week Comments Yes 0 (1 standard drink = 0.6 oz pur e alcohol) social Sex and Gender Information Value Date Recorded Sex Assigned at Not on file Gender Identity Not on file Sexual Orientation Not on file Last Filed Vital Signs Vital Sign Reading Time Taken Comments Blood Pressure 129/84 09/29/2022 12:55 PM CDT Pulse 60 09/29/2022 12:55 PM CDT Temperature 36.2 C (97.1 F) 09/29/2022 12:53 PM CDT Respiratory Rate 16 09/29/2022 12:55 PM CDT Oxygen Saturation 93% 09/29/2022 12:55 PM CDT Inhaled Oxygen Concentration - - Weight 184.2 kg (406 lb) 09/29/2022 9:07 AM CDT Height 185.4 cm (6' 1 ) 09/28/2022 10:54 AM CDT Body Mass Index 53.57 09/28/2022 10:54 AM CDT Functional Status Functional Status Response Date of Assess ment Is person deaf or have serious hearing difficult y? No 09/29/2022 Is person blind or have serious difficulty seein g? No 09/29/2022 Does person have serious dif ficulty walking/climbing stairs? No 09/29/2022 Does person have difficulty dressing/bathing? No 09/29/2022 Does person have difficulty doing errands alone? No 09/29/2022 Cognitive Status Response Date of Assessm ent Does person have difficulty concentrating/remembering/making decisions? No 09/29/2022 Plan of Treatment Not on file Medical Devices Implanted Type Area Drying Room Supervisor Device Identifier Shelf Expiration Date Model / Serial / Lot Sherwood Sut Healix Adv Dynacord 5.5mm Implanted:Qty: 2 on 09/29/2022 by Akin Schuler MD at [facility] Right: Shoulder [employer] 06/23/2025 [id number] / / [id number] Sherwood Sut Healix Adv 5.5mm Bcmps Slf Implanted:Qty: 2 on 09/29/2022 by Akin Schuler MD at [facility] Right: Shoulder [employer] 07/24/2025 [id number] / / [id number] Procedures Procedure Name Priority Date/Time Associated Diagnosis Comments GLUCOSE - POINT OF CARE Routine 09/29/2022 9:40 AM CDT from Last 3 Months or Most Recently Relevant to Health Maintenance Results * (ABNORMAL) GLUCOSE - POINT OF CARE (09/29/2022 9:40 AM CDT) Glucose WB/POC 112(H) 70 - 106 mg/dL 09/29/2022 9:46 AM CDT [facility] Specimen Type Venous 09/29/2022 9:46 AM CDT [facility] Blood BLOOD SPECIMEN / Unknown 09/29/2022 9:40 AM CDT 09/29/2022 9:46 AM CDT Akin Schuler MD LAB - POINT OF CARE ORDERABLES [facility] [address] [id number] from Last 3 Months or Most Recently Relevant to Health Maintenance Care Teams Substance Abuse Counselor Relationship Specialty Start Date End Date Lizbeth Mccoy MD [address] [place] [address] PCP - General Family Medicine 09/29/22 Boris Lee MD [address] [place] [address] Cardiology 08/19/22
--- OUTSIDE RECORDS SUMMARY | 2024-06-02 15:00 | XMS_ITS | Patient Health Summary ---
Author Organization [facility] Address [address] [place] [address] Care Team Providers Care Timekeeper Supervisor Name Role Phone Boris Lee MD Unavailable [phone] Lizbeth Mccoy MD Primary Care Provider + Note from [facility],non-owned Affiliates and Associated Physician Practices is amultiple site organization consisting of ambulatory clinics and hospital sitesin [place], [place], [place] and [place]. This disclosure is being madepursuant to the Care Everywhere program and may not contain all information available regarding this patient. Last updated 18.[facility] Allergies No known active allergies Medications * Be aware that medications may not be up to date on this document. Alwaysverify current medications with the patient. * metoprolol succinate XL 24hr (Toprol XL) 100 MG tablet(Started 08/02/2022) Take 1 (one) tablet by mouth once daily * Xarelto 20 MG tablet(Started 08/10/2022) Take 1 (one) tablet by mouth as directed * tiZANidine (Zanaflex) 4 MG tablet(Started 08/04/2022) Take 1 (one) tablet by mouth as directed * losartan-hydroCHLOROthiazide (Hyzaar) 100-25 MG tablet(Started 08/03/2022) Take 1 (one) tablet by mouth once daily * aspirin EC (Ecotrin) 81 MG tablet Take 1 (one) tablet by mouth once daily * oxyCODONE-acetaminophen (Percocet) 7.5-325 MG tablet Take 1 (one) tablet by mouth every 6 hours as needed for Pain * docusate sodium (Colace) 100 MG capsule(Started 09/28/2022) Take 1 (one) capsule by mouth 2 times daily * metFORMIN (Glucophage) 500 MG tablet(Started 12/04/2022) Take 1 (one) tablet by mouth 2 times daily with morning and evening meal * Farxiga 5 MG tablet(Started 01/11/2023) Take 1 (one) tablet by mouth once daily * atorvastatin (Lipitor) 80 MG tablet Take 1 (one) tablet by mouth at bedtime * dilTIAZem SR 24hr (Dilt-XR) 240 MG capsule(Started 01/06/2023) Take 1 (one) capsule by mouth every morning * ibuprofen (Motrin) 800 MG tablet(Started 04/05/2023) Take 1 (one) tablet by mouth every 8 hours as needed * Ozempic, 2 MG/DOSE, 8 MG/3ML pen(Started 04/04/2023) Inject 2 (two) mg subcutaneously every 7 days Active Problems Problem Noted Date Diagnosed Date Body mass index (BMI) 50.0-59.9, adult 03/17/2023 Morbid (severe) obesity due to excess calories 0 01/06/2023 03/17/2023 CAD (coronary artery disease) 08/19/2022 History of heart attack 08/19/2022 08/20/19 23 History of deep vein thrombosis of lower [...] Mass Index 53.57 09/28/2022 10:54 AM CDT Medical Devices Implanted Type Area Sales Support Engineer Device Identifier Shelf Expiration Date Model / Serial / Lot Iuka Sut Healix Adv Dynacord 5.5mm Implanted:Qty: 2 on 09/29/2022 by Akin Schuler MD at [facility] Right: Shoulder [employer] 06/23/2025 [id number] / / [id number] Iuka Sut Healix Adv 5.5mm Bcmps Slf Implanted:Qty: 2 on 09/29/2022 by Akin Schuler MD at [facility] Right: Shoulder [employer] 07/24/2025 [id number] / / [id number] Procedures * CARDIAC RHYTHM STRIP ORDER(Performed 09/30/2022) * IMAGING/RADIOLOGY/XRAY RESULTS ORDER(Performed 09/30/2022) * GLUCOSE - POINT OF CARE(Performed 09/29/2022) * SC SCOPE SHLDR SURG;W/ROTOR CUFF(Performed 09/29/2022) Performed for M25.511 * PERIPHERAL BLOCK(Performed 09/29/2022) * GLUCOSE - POINT OF CARE(Performed 09/29/2022) * XR SHOULDER RIGHT 2VW OR MORE(Performed 08/19/2022) Performed for Right shoulder pain, unspecified chronicity Results * CARDIAC RHYTHM STRIP ORDER (09/30/2022 10:31 PM CDT) Narrative 09/30/2022 10:31 PM CDT Ordered by an unspecified provider. Scanned Document CARDIAC SERVICES ORD ERABLES * IMAGING RADIOLOGY XRAY RESULTS ORDER (09/30/2022 8:44 PM CDT) Anatomical Region Laterality Modality Other Narrative 09/30/2022 8:44 PM CDT Ordered by an unspecified provider. Scanned Document IMAGING * (ABNORMAL) GLUCOSE - POINT OF CARE (09/29/2022 12:00 PM CDT) Only the most recent of2 resultswithin the time period is included. Glucose WB/POC 149(H) 70 - 106 mg/dL 09/29/2022 12:07 PM CDT [facility] Specimen Type Cap Fingerstick 2022 12:07 PM CDT [facility] Blood BLOOD SPECIMEN / Unknown 09/29/2022 12:00 PM CDT 09/29/2022 12:07 PM CDT Akin Schuler MD LAB - POINT OF CARE ORDERABLES Performing Organization Address City/State/[facility] [[email or web address]] Co de Phone Number [facility] [address] [place] [address] * Peripheral Nerve Block (09/29/2022 10:09 AM CDT) Narrative Marco A Salmon MD - 09/29/2022 10:09 AM CDT Marco A Salmon MD 09/29/2022 10:10 AM Peripheral Nerve Block Procedure: Peripheral Nerve Block Patient Location: PACU Preprocedure Section: Indications: at surgeon's request and postop pain management. Pre-anesthetic Checklist: Patient identified, IV Checked, Site examined and clear, Risks and benefits discussed, Surgical consent verified, Monitors and equipment, Time-out performed, Informed consent obtained, Pre-op evaluation done, Questions answered/anesthesia questions answered, Allergies reviewed and Removal hand/wrist jewelry Monitors: BP, Pulse Ox and EKG. Patient Condition: sedated, meaningful contact maintained throughout procedure Patient Position: sitting Patient Sedated? Yes Sedation Type: mild Sedation Agents: fentaNYL (PF) (SUBLIMAZE) injection, 50 mcg midazolam (VERSED) injection, 2 mg Procedure Section Laterality: right Block Performed: interscalene Prep: alcohol Strerile Field: gloves, mask and hat/cap Skin localized with: lidocaine (XYLOCAINE) 1 % injection, 4 mL Needle Type: nerve stimulator Needle Gauge: 20 Needle Length: 90 mm Needle Depth: 2 cm Nerve Stimulator? Yes Ultrasound Guided? Yes Technique: in plane Visualization: Preliminary scan performed, Important anatomical structures identified, Needle tip visualized throughout the procedure, Target identified, No intraneural or intravascular puncture occurred, Ultrasound image in chart, Local visualized surrounding nerve on ultrasound and Hydrodissection utilized Injection was made incrementally with constant monitoring and aspirations every 5 mL's Injection Assessment: Slow fractionated injection Block Agents or Additives used? Yes Block agents used: bupivacaine PF (MARCAINE PF) 0.5 % injection, 15 mL bupivacaine liposome (EXPAREL) 1.3 % injection, 10 mL Procedure Tolerance: tolerated well, performed while the patient was sedated and no immediate complications Procedure Start Time: 09/29/2022 10:00 AM. Procedure End Time: 09/29/2022 10:05 AM. Procedure Total Time: 5 minutes. Staff Section Anesthesia Provider: Marco A Salmon MD, Performed the procedure Marco A Salmon MD GENERAL ANESTHESIA O RDERABLES * XR SHOULDER RIGHT 2VW OR MORE (08/19/2022 2:21 PM CDT) Anatomical Region Laterality Modality Upper Extremity Radiographic Sandi ging 08/19/2022 2:22 PM CDT Impressions 08/19/2022 2:22 PM CDT IMPRESSION: Mild acromioclavicular degenerative change. > Interpreting Provider: Richie Riley MD on 08/19/2022 2:22 PM Narrative 08/19/2022 2:22 PM CDT PROCEDURE: XR SHOULDER RIGHT 2VW OR MORE DATE/TIME OF EXAM: 08/19/2022 2:21 PM CLINICAL INFORMATION: None relevant/not provided if blank. Indication: M25.511: Right shoulder pain, unspecified chronicity Additional History: COMPARISON: None. FINDINGS: No fracture or dislocation. The glenohumeral joint space is normal. There is mild acromioclavicular degenerative change. Procedure Note Richie Riley MD - 08/19/2022 PROCEDURE: XR SHOULDER RIGHT 2VW OR MORE DATE/TIME OF EXAM: 08/19/2022 2:21 PM CLINICAL INFORMATION: None relevant/not provided if blank. Indication: M25.511: Right shoulder pain, unspecified chronicity Additional History: COMPARISON: None. FINDINGS: No fracture or dislocation. The glenohumeral joint space is normal.There is mild acromioclavicular degenerative change. IMPRESSION: Mild acromioclavicular degenerative change. > Interpreting Provider: Richie Riley MD on 08/19/2022 2:22 PM Akin Schuler MD [facility] Care Teams Timekeeper Supervisor Relationship Specialty Start Date End Date Lizbeth Mccoy MD [address] [place] [address] PCP - General Family Medicine 09/29/22 Boris Lee MD [address] [place] [address] Cardiology 08/19/22
--- OUTSIDE RECORDS SUMMARY | 2024-06-02 15:00 | XMS_ITS | Referral Summary ---
Author Organization [address] Address [facility] [place] [address] Care Team Providers Care Gear Lapper Name Role Phone Lizbeth Mccoy MD Primary Care Provider Encounters Date Type Department Care Team Description 04/07/2024 10:15 AM ENGINEERING SCIENTIST Office Visit [facility] at [address] [place] [address] Boris Lee MD Paroxysmal atrial fibrillation (CMS/HCC) (HCC) (Primary Dx); Paroxysmal atrial flutter (CMS/HCC) (HCC) 03/10/2024 Telephone [facility] [address] [place] [address] [place] [phone] Boris Lee MD Med Refill; samples 03/10/2024 11:15 AM ENGINEERING SCIENTIST Office Visit [facility] [address] [place] [address] [place] [phone] Boris Lee MD Coronary artery disease involving mi'kmaq coronary artery of mi'kmaq heart without angina pectoris (Primary Dx); Paroxysmal atrial fibrillation (CMS/HCC) (HCC) from Last 3 Months Allergies No known active allergies Medications atorvastatin (LIPITOR) 80 mg tablet Take 1 tablet (80 mg total) by mouth daily Active aspirin 81 mg enteric coated tablet Take 1 tablet (81 mg total) by mouth daily Active tiZANidine (ZANAFLEX) 4 mg tablet 09/05/2021 Active oxyCODONE-acetami nophen (PERCOCET) 5-325 mg per tablet Take 1 tablet by mouth 3 (three) times a day 03/24/2022 Active metFORMIN (GLUCOPHAGE) 500 mg tablet Take 1 tablet (500 mg total) by mouth 2 (two) times a day Active lncfdauv32-knym-R mfolate-algal 27 mg iron-1.13 mg-581.92 mg capsule Take by mouth Active losartan-hydrochl orothiazide (HYZAAR) 100-25 mg per tabletIndications :Essential hypertension TAKE 1 TABLET BY MOUTH DAILY 90 tablet 2 01/28/2024 Active flecainide (TAMBOCOR) 100 mg tabletIndications :Paroxysmal Atrial Fibrillation Take 1 tablet (100 mg total) by mouth 2 (two) times a day 60 tablet 2 03/10/2024 03/10/20 Active rivaroxaban (Xarelto) 20 mg tablet Take 1 tablet (20 mg total) by mouth daily with dinner 90 tablet 3 03/31/2024 Active metoprolol XL (TOPROL-XL) 50 mg extended release tablet Take 1 tablet (50 mg total) by mouth daily 90 tablet 2 04/07/2024 04/07/20 25 Active Active Problems Problem Noted Date Diagnosed Date Morbid (severe) obesity due to excess calories 0 01/06/2023 Body mass index (BMI) 50.0-59.9, adult 3 Paroxysmal atrial fibrillation (CMS/HCC) 023 Paroxysmal atrial flutter (CMS/HCC) 01/30/2022 History of DVT of lower extremity History of heart attack Hypertension CAD (coronary artery disease) Sleep apnea Varicose veins of both lower extremities with pa in Resolved Problems Problem Noted Date Diagnosed Date Resolved Date DVT (deep vein thrombosis) in 09/30/2020 Social History Tobacco Use Types Packs/Day Years Used Date Smoking Tobacco: Former Cigarettes Q uit: 2002 Smokeless Tobacco: Never Tobacco Cessation:Counseling Given: Not Answered AUDIT-C Answer Date Recorded Q1: How often do you have a drink containing alc ohol? Monthly or less 09/30/2020 Average Number of Drinks Not on file 021 Frequency of Binge Drinking Not on file 10/2020 Sex and Gender Information Value Date Recorded Sex Assigned at Not on file Legal Sex Male 12:58 AM ENGINEERING SCIENTIST Gender Identity Not on file Sexual Orientation Not on file Last Filed Vital Signs Vital Sign Reading Time Taken Comments Blood Pressure 130/82 04/07/2024 10:15 AM ENGINEERING SCIENTIST Pulse 48 04/07/2024 10:15 AM ENGINEERING SCIENTIST Temperature - - Respiratory Rate - - Oxygen Saturation 99% 04/07/2024 10:15 AM ENGINEERING SCIENTIST Inhaled Oxygen Concentration - - Weight 190.5 kg (420 lb) 04/07/2024 10:15 AM ENGINEERING SCIENTIST Height 185.4 cm (6' 1 ) 04/07/2024 10:15 AM ENGINEERING SCIENTIST Body Mass Index 55.41 04/07/2024 10:15 AM ENGINEERING SCIENTIST Plan of Treatment Not on file Procedures Procedure Name Priority Date/Time Associated Diagnosis Comments POCT LIPID PANEL Routine 03/10/2024 11:1 4 AM ENGINEERING SCIENTIST Coronary artery disease involving mi'kmaq coronary artery of mi'kmaq heart without angina pectoris from Last 3 Months Results * POCT lipid panel (03/10/2024 11:14 AM ENGINEERING SCIENTIST) Cholesterol, POC 143 mg/dL HDL, POC 37 mg/dL Triglycerides, POC 160 mg/dL LDL Cholesterol POC 74 mg/dL Chol/HDL Ratio, POC 2.0 Non-HDL Cholesterol, POC 106 mg/dL Cholesterol Total, POC 143 mg/dL Capillary blood 03/10/2024 1 1:14 AM ENGINEERING SCIENTIST Boris Lee MD POINT OF CARE TEST ORDER MARINO Final Result from Last 3 Months Insurance [employer] Care Teams Gear Lapper Relationship Specialty Start Date End Date Lizbeth Mccoy MD [address] [facility] [address] [facility] [address] [place] [address] PCP - General Family Medicine 09/05/20
--- OUTSIDE RECORDS SUMMARY | 2024-06-02 15:00 | XMS_ITS | Clinical Summary ---
Author Organization [facility] [employer] Address [address] [place] [address] Care Team Providers Care Oil Pump Station Operator Chief Name Role Phone Boris Lee MD Unavailable [phone] Lizbeth Mccoy MD Primary Care Provider + Source Comments [facility],non-owned Affiliates and Associated Physician Practices is amultiple site organization consisting of ambulatory clinics and hospital sitesin [place], [place], [place] and [place]. This disclosure is being madepursuant to the Care Everywhere program and may not contain all information available regarding this patient. Last updated 18.[facility] [employer] Allergies No known active allergies Medications * [...] Mass Index 53.57 09/28/2022 10:54 AM CDT Plan of Treatment Health Maintenance Due Date Last Done Comments COLOGUARD (AGES 45-75) - COL ON CA SCREENING 1959 COLON MONITORING 1959 COLONOSCOPY - COLON CA SCREENING 1959 CT COLONOGRAPHY - COLON CA SCREENING 1959 Colorectal Cancer Screening 1959 FIT - COLON CA SCREENING 1959 FLEX SIG - COLON CA SCREENING 1959 HIV SCREENING 08/04/1974 HEPATITIS C SCREENING 07/31/1977 DTAP/TDAP/TD VACCINES (1 - Tdap) 08/04/1978 PNEUMOCOCCAL VACCINE 50+ (1 of 1 - PCV) 08/04/2009 ZOSTER VACCINE (1 of 2) 08/04/2009 Respiratory Syncytial Virus (RSV) Vaccine Pt: or over 60 yrs (1 - Risk 60-74 years 1-dose series) 2019 COVID-19 VACCINE ( - 2023-2 5 season) 2023 INFLUENZA VACCINE (#1) 2023 DEPRESSION SCREENING 04/26/2024 SCREENING FOR DIABETES 09/29/2025 3, 09/29/2022 HEPATITIS B VACCINE Aged Out No longe r eligible based on patient's age to complete this topic HIB VACCINE Aged Out No longer eligi ble based on patient's age to complete this topic HPV VACCINE Aged Out No longer eligi ble based on patient's age to complete this topic MENINGOCOCCAL (Group B) VACCINE Aged Out No longer eligible b ased on patient's age to complete this topic MENINGOCOCCAL VACCINE Aged Out No shaggy gricel eligible based on patient's age to complete this topic PNEUMOCOCCAL VACCINE Aged Out No long er eligible based on patient's age to complete this topic Medical Devices Implanted Type Area Plug Cutting Machine Operator Device Identifier Shelf Expiration Date Model / Serial / Lot [place] Sut Healix Adv Dynacord 5.5mm Implanted:Qty: 2 on 09/29/2022 by Akin Schuler MD at [facility] Right: Shoulder [employer] 06/23/2025 [id number] / / [id number] [place] Sut Healix Adv 5.5mm Bcmps Slf Implanted:Qty: 2 on 09/29/2022 by Akin Schuler MD at [facility] Right: Shoulder [employer] 07/24/2025 [id number] / / [id number] Procedures Procedure Name Priority Date/Time Associated Diagnosis Comments GLUCOSE - POINT OF CARE Routine 09/29/2022 9:40 AM CDT from Last 3 Months or Most Recently Relevant to Health Maintenance Results * (ABNORMAL) GLUCOSE - POINT OF CARE (09/29/2022 9:40 AM CDT) [facility] Glucose WB/POC 112(H) 70 - 106 mg/dL 09/29/2022 9:46 AM CDT [facility] Specimen Type Venous 09/29/2022 9:46 AM CDT [facility] Blood BLOOD SPECIMEN / Unknown 09/29/2022 9:40 AM CDT 09/29/2022 9:46 AM CDT Akin Schuler MD LAB - POINT OF CARE ORDERABLES [facility] [address] [place] [address] from Last 3 Months or Most Recently Relevant to Health Maintenance Care Teams Oil Pump Station Operator Chief Relationship Specialty Start Date End Date Lizbeth Mccoy MD [address] [place], [place] [id number] PCP - General Family Medicine 09/29/22 Boris Lee MD [address] [place], [place] [id number] Cardiology 08/19/22
--- OUTSIDE RECORDS SUMMARY | 2024-06-02 15:00 | XMS_ITS | Clinical Summary ---
Author Organization [address] Address [facility] [place] [address] Care Team Providers Care Housekeeping Staff Name Role Phone Lizbeth Mccoy MD Primary Care Provider Allergies No known active allergies Medications atorvastatin [...] mouth 2 (two) times a day Active -xoya-E mfolate-algal 27 mg iron-1.13 mg-581.92 mg capsule Take by mouth Active losartan-hydrochl orothiazide (HYZAAR) 100-25 mg per tabletIndications :Essential hypertension TAKE 1 TABLET BY MOUTH DAILY 90 tablet 2 01/28/2024 Active flecainide (TAMBOCOR) 100 mg tabletIndications :Paroxysmal Atrial Fibrillation Take 1 tablet (100 mg total) by mouth 2 (two) times a day 60 tablet 2 03/10/2024 03/10/20 25 Active rivaroxaban (Xarelto) 20 mg tablet Take [...] Date DVT (deep vein thrombosis) in 09/30/2020 Encounters Date Type Department Care Team Description 04/07/2024 10:15 AM ADMINISTRATIVE OFFICER Office Visit [facility] at [address] [place] [address] Boris Lee MD Paroxysmal atrial fibrillation (CMS/HCC) (HCC) (Primary Dx); Paroxysmal atrial flutter (CMS/HCC) (HCC) 03/10/2024 11:15 AM ADMINISTRATIVE OFFICER Office Visit [facility] [address] [place] [address] Boris Lee MD Coronary artery disease involving wy[place] coronary artery of wy[place] heart without angina pectoris (Primary Dx); Paroxysmal atrial fibrillation (CMS/HCC) (HCC) 03/10/2024 Telephone [facility] [address] [place] [address] Boris Lee MD Med Refill; samples from Last 3 Months Surgical History Surgery Date Site/Laterality Comments CARDIAC CATHETERIZATION URETHRAL DILATION REPLACEMENT TOTAL KNEE Left CORONARY ANGIOPLASTY Medical History Medical History Date Comments Hypertension CAD (coronary artery disease) Candidosis of skin Hyperlipidemia Sleep apnea Heart attack (HCC) Obese Anxiety and depression Covid-19 Family History Medical History Relation Name Comments Diabetes Father Stroke Father Colon cancer Mother Relation Name Status Comments Father (Age 52) Mother Alive Social History Tobacco Use Types Packs/Day Years [...] on file Legal Sex Male 12:58 AM ADMINISTRATIVE OFFICER Gender Identity Not on file Sexual Orientation Not on file Obstetrics History Last Filed Vital Signs Vital Sign Reading Time Taken Comments Blood Pressure 130/82 04/07/2024 10:15 AM ADMINISTRATIVE OFFICER Pulse 48 04/07/2024 10:15 AM ADMINISTRATIVE OFFICER Temperature - - Respiratory Rate - - Oxygen Saturation 99% 04/07/2024 10:15 AM ADMINISTRATIVE OFFICER Inhaled Oxygen Concentration - - Weight 190.5 kg (420 lb) 04/07/2024 10:15 AM ADMINISTRATIVE OFFICER Height 185.4 cm (6' 1 ) 04/07/2024 10:15 AM ADMINISTRATIVE OFFICER Body Mass Index 55.41 04/07/2024 10:15 AM ADMINISTRATIVE OFFICER Plan of Treatment Health Maintenance Due Date Last Done Comments Colon Cancer Screening-Colonoscopy 1959 Depression Screening 1959 Hepatitis C Screening 1959 Prostate Cancer Screening-PSA 1959 DTaP/Tdap/Td Vaccine (1 - Tdap) 08/04/1970 Hepatitis B Screening 08/04/1977 Regular Well Visit/Exam 18-64 08/04/1977 Zoster Vaccine (1 of 2) 08/04/2009 Influenza Vaccine (#1) 2023 Pneumococcal vaccine <65 Aged Out No longer eligible based on patient's age to complete this topic Procedures Procedure Name Priority Date/Time Associated Diagnosis Comments POCT LIPID PANEL Routine 03/10/2024 11:1 4 AM ADMINISTRATIVE OFFICER Coronary artery disease involving [place] coronary artery of [place] heart without angina pectoris from Last 3 Months Results * POCT lipid panel (03/10/2024 11:14 AM ADMINISTRATIVE OFFICER) Cholesterol, POC 143 mg/dL HDL, POC 37 mg/dL Triglycerides, POC 160 mg/dL LDL Cholesterol POC 74 mg/dL Chol/HDL Ratio, POC 2.0 Non-HDL Cholesterol, POC 106 mg/dL Cholesterol Total, POC 143 mg/dL Capillary blood 03/10/2024 1 1:14 AM ADMINISTRATIVE OFFICER us Boris Lee MD POINT OF CARE TEST ORDER MARINO Final Result from Last 3 Months Insurance [employer] EXCHANGE [place] Care Teams Housekeeping Staff Relationship Specialty Start Date End Date Lizbeth Mccoy MD [address] [facility] [address] [place] [address] PCP - General Family Medicine 09/05/20
== END 2024-06-02 14:57 | disposition home or self-care (01) ==
PROVIDERS: PCP Family Medicine; Visit Provider Student in an Organized Health Care Education/Training Program
DX: R05.9 Cough, unspecified (principal)
CPT/HCPCS: 71046

== ENCOUNTER 2024-08-09 13:01 | Outpatient (CLI) | payer MEDICARE, SELFPAY ==
--- OUTSIDE RECORDS SUMMARY | 2024-08-09 14:09 | XMS_ITS | Data Portability ---
Author Organization [place] - [facility] Address [address] [place] [address] Assessment Encounter Date Assessment Date Assessment LastModified by Organization Details LastModified Time 01/20/2019 01/20/2019 01/20/19 this 58-year-old gentleman with comorbidities is here to establish care. 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 Patient grew up in [place]. He has 2 masters degrees. He is single. His father had type 1 diabetes and because of vascular complications. His mother is in good health. He is an only child. Coronary artery disease. Patient had a stent placed several years ago, he is compliant with medications. No changes in symptomatology 40 minutes or more were spent in the care of this patient, at least 50% of which was counseling and/or coordination of care. alblanca Not available 01/24/2019 08:42:18 Plan of Treatment Reminders Order Date Submit Date Provider Last Modified By Organization Details Last Modified Time Details Appointments None recorded. Lab HbA1c (hemoglob in A1c), blood 2018 019 [facility] (Lab), [place], [address], 9 18:37:54 lipid panel, serum - FASTING 2018 019 [facility] (Lab), [place], [address], 9 18:37:53 CMP, serum or plasma 2018 019 [facility] (Lab), [place], [address], 9 18:37:55 TSH, serum or plasma 2018 [facility] (Lab), [address], [place], [address], 9 18:37:54 CRP, high sensitivi ty, serum or plasma 2018 [facility] (Lab), [address], [place], [address], 9 18:37:54 Referral pain managemen t referral 2018 [facility], [address] , [place], [address], 18:58:45 pain managemen t referral 2018 [facility], [address] [place] [address] , [address], [place], [address], 19:00:29 urologist referral 2018 [facility], [address], [address], [place], [address], 9 18:58:45 cardiolog ist referral 2018 [facility], [address], [address], [place], [address], 9 18:58:45 Procedures None recorded. Surgeries None recorded. Imaging None recorded. Medication Orders tizanidin e 4 mg tablet 2018 [facility] [id number], [address], [place], [address], 9 18:37:45 difloraso ne 0.05 % topical ointment 2018 019 [facility] [id number], [address] [place], [address], 9 18:37:49 losartan 100 mg-hydroc hlorothia zide 25 mg tablet 2018 019 [facility] [id number], [address] [place], [address], 9 18:43:46 Patient TargetsNo targets recorded. Patient Instructions Encounter Date Encounter Id Patient Instructions Last Modified By Organization Details Last Modified Time 01/20/2019 [id number] high cholesterol : care instructions Not available 01/20/2019 18:37:37 learning about healthy weight Not available 01/20/2019 18:37:37 sleep apnea: car e instructions Not available 01/20/2019 18:37:37 high blood pressure: care instructions Not available 01/20/2019 18:37:37 learning about high blood pressure Not available 01/20/2019 18:37:37 Reason for Referral Pain Management Referral for Chronic low back pain Referring Physician: Family Jonathan Hickman, Encounter Date: 01/20/2019 Computer Aided Design Operator Referral for Co ronary arteriosclerosis Referring Physician: Family Jonathan Hickman, Encounter Date: 01/20/2019 Urologist Referral for Ureth ral stricture Referring Physician: Family Jonathan Hickman, Encounter Date: 01/20/2019 Pain Management Referral for Chronic low back pain Referring Physician: Family Jonathan Hickman, Encounter Date: 01/20/2019 Problems Name Problem SNOMED Code Status Onset Date Resolution Date Notes Provider Name and Address Organization Details Recorded Time Essential hypertension 60681336 Active 2018 K[place] Ascencio - [facility] [place], 18:23:09 Coronary arterioscleros is 37582000 Active 2018 Kirk ferguson, [facility], 9 18:24:00 Hyperlipidemia 99462851 Active 2018 Kirk ferguson [facility], 9 18:24:20 Body mass index 40+ - severely obese 719017774 Active 2018 Kirk ferguson, [facility], 18:33:59 Chronic low back pain 771943036 Active 2018 Kirk ferguson, [facility], 9 18:34:05 Psoriasis 9202189 Active 2018 Kirk ferguson [facility], 18:34:10 Obstructive sleep apnea syndrome 43276311 Active 2018 Kirk ferguson, [facility], 9 18:35:00 Screening for cardiovascular system disease Active 2018 Kirk ferguson [facility], 9 19:08:17 Urethral stricture 01482151 Active 2018 Kirk ferguson [facility], 19:08:21 Opioid dependence 88866001 Active 2018 Kirk ferguson [facility], 9 19:10:27 Problem Notes None recorded. Procedures Surgical History Date Name Laterality Status Provider Name and Address Organization Details Recorded Time total knee replacement completed Kirk Loza [facility], 01/20/2019 18:25:10 excision of mass of neck completed Kirk Loza [facility], 01/20/2019 18:43:00 Imaging Results None recorded. Procedure Notes None recorded. Medical Equipment None Reported. Allergies No known drug allergies Medications Name Sig Start Date Stop Date Status Note LastModified by Organization Details LastModified Time atorvastatin 80 mg tablet Take 1 tablet every day by oral route for 90 days. 2018 active Not Available Not Available Not Avai lable tizanidine 4 mg tablet TAKE ONE TABLET BY MOUTH EVERY 6 HOURS active Not Available Not Available No t Available losartan 100 mg-hydrochloro thiazide 25 mg tablet TAKE ONE TABLET BY MOUTH DAILY FOR 90 DAYS 2019 active Not Available Not Available Not Avai lable gabapentin 300 mg capsule Take 1 capsule 3 times a day by oral route for 30 days. 2018 active Not Available Not Available Not Avai lable diflorasone 0.05 % topical ointment APPLY A THIN LAYER TO THE AFFECTED AREA(S) BY TOPICAL ROUTE 2 TIMES PER DAY 2018 active Not Available Not Available Not Avai lable losartan active Not Available Not Avai lable Not Available Vitals Date Recorded Body height Body mass index (BMI) Body weight Body temperature Heart rate Oxygen saturation Oxygen saturation in Arterial blood by Pulse oximetry Respiratory rate Systolic blood pressure Diastolic blood pressure Provider Name and Address Organization Details Last Updated DateTime 9 185.42 cm 46.7 kg/m2 745444. 98 g 98.5 [degF] 78 /min 94 % 94 % 16 /min 145 mm[Hg] 95 mm[Hg] Boris ANGELES - [facility], 9 18:18:45 Social History Question Answer Notes LastModified by Wikidata ion Details LastModified Time Tobacco Smoking Status Former Smoker Boris Foster [facility] [place] - [facility], 01/20/2019 18:19:03 How Many Years Have You Smoked Tobacco? 30 Information not available 01/20/2019 Sex: Unknown Functional Status None recorded. Mental Status None recorded. Family History Relationship Description Onset Age of this Age Resolved Age Notes LastModified by Organization Details LastModified Time Father Type 1 diabetes mellitus Not available 2018 18:40:32 Father Amputation of leg through tibia and fibula second alo to DM neurop athy Not available 01/20/2019 18:41:15 Maternal Aunt CVA - cerebrovascu lar accident due to cerebral artery occlusion Not available 2018 18:41:27 Maternal Aunt Coronary arterioscler osis Not available 2018 18:42:01 Maternal Grandmother Coronary arterioscler osis Not available 2018 18:42:01 Medical History No medical history recorded. Past Encounters Encounter ID Performer Location Encounter Start Date Encounter Closed Date Diagnosis/Indication Diagnosis SNOMED-CT Code Diagnosis ICD10 Code Diagnosis Note [id number] RAQUEL Oreilly [facility] [address] [place], [place] [address], [address] [place] [phone] 01/20/2019 18:01:37 01/20/2019 18:58:44 Body mass index 40+ - severely obese 005042574 Z68.42 01/20/19 not controlled , patient is in dire need of a lifestyle change, nutrition counseling performed Essential hypertension 36401806 I10 01/20/19 not controlled , losartan hydrochlor othiazide combo refills, patient will follow up in a month for recheck. See coronary artery disease. no dry cough noted. No history of hypokalemi a. Hyperlipidemia 34274046 E78.5 01/20/19, status unknown, statin refilled and lipid panel ordered. Patient states that he has been eating a bachelor's diet lately. He does not exercise lately. No myalgias from statin. Chronic low back pain 27 5348197 M54.5 01/20/19 neck stable, tizanidine refilled. Patient referred to pain management for hydrocodon e refill, at [facility] in [place]. Patient states that he has sciatica with radiation down the right leg. Patient's currently taking gabapentin , [place], and tizanidine . Tizanidine really helps the patient's sleep. Patient does have sleep apnea Psoriasis 9459501 L40.9 01/20/19 controlled , topical steroid refilled. Patient states that he was diagnosed with psoriasis years ago and gets lesions on his hands. It has been controlled with high potency steroids for years. Patient requesting refills. Coronary arteriosclerosis 84454056 I25.10 01/20/19. Stable, continue daily baby aspirin and statin. Patient is status post stent placement in RAD. patient had a heart attack several years ago, he was found to have almost complete blockage. There is a significan t family history of coronary artery disease that includes paternal aunts. Has also history of CVA on the maternal side. He denies any chest pain or changes in exercise tolerance. Obstructiv e sleep apnea syndrome 82512250 G47.33 01/20/19 controlled , patient's compliant with CPAP. I'm concerned that patient may have some central sleep apnea considerin g he is on [place] as well as a muscle relaxer. Patient will follow-up in a month and discuss the muscle relaxer use. Continue CPAP. Patient is obese. Screening for cardiovascular system disease 252911377 Z13.6 01/20/19 not stable, continue statin, lipid panel ordered, she has multiple comorbidit ies Urethral stricture 35062 002 N35.92 01/20/19 patient's current symptomati c, urology referral ordered, continue self-amelia terization . Patient has a diagnosis of strictures , they've been repaired twice by urologist, patient started to get symptoms again, he is self-amelia terization now. He denies any dysuria. Opioid dependence 679577 00 F11.20 01/20/19 stable, pain management referral to [facility] in [place]. Patient agrees to plan. Patient's currently taken [place] twice a day for chronic low back pain as well as left knee pain, status post total knee replacemen t. Health Concerns Section Related Observation LastModified by Organization Detai ls LastModified Time None Recorded Concern Status LastModified by Organization Details LastModified Time None Recorded Advance Directives Directive None Recorded Payers None recorded. Notes Date Note Type Note Provider Name and Address Organization Details Recorded Time 01/20/2019 text/html 01/20/19 this 58-year-old gentleman with comorbidities is here to establish care. 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 Patient grew up in [place]. He has 2 masters degrees. He is single. His father had type 1 diabetes and because of vascular complications. His mother is in good health. He is an only child. Coronary artery disease. Patient had a stent placed several years ago, he is compliant with medications. No changes in symptomatology Negative for fevers, chills, nausea, vomiting, diarrhea, constipation, headache, visual disturbance, neck pain, chest pain, shortness of breath. All other systems are negative, except as noted in the HPI. RAQUEL Oreilly [address] [facility], [facility], [place], [address], [facility] - [facility] [place], 01/24/2019 08:42:22
--- OUTSIDE RECORDS SUMMARY | 2024-08-09 14:09 | XMS_ITS | Referral Summary ---
Author Organization [place] [id number] [facility] Address [facility] [place] [address] Care Team Providers Care Lead Quality Control Technician Name Role Phone Ivan Lafleur MD Primary Care Provider Encounters Date Type Department Care Team Description 07/05/2024 Telephone [facility] [address] [place] [address] [address] [place] [phone] Boris Lee MD DOT letter; Hypertension 06/09/2024 10:00 AM OFFICE AUDITOR Procedure visit [facility] [address] [place] [address] [place] [phone] Persistent atrial fibrillation (HCC) 06/02/2024 Telephone [facility] [address] [place] [address] [address] [place] [phone] Angela Brantley NP low HR; Dizziness; Fatigue from Last 3 Months Allergies No known [...] mouth 2 (two) times a day Active cymsgrcy83-kuku-N mfolate-algal 27 mg iron-1.13 mg-581.92 mg capsule Take by mouth Active losartan-hydrochl orothiazide (HYZAAR) 100-25 mg per tabletIndications :Essential hypertension TAKE 1 TABLET BY MOUTH DAILY 90 tablet 2 01/28/2024 Active rivaroxaban (Xarelto) 20 mg tablet Take 1 tablet (20 mg total) by mouth daily with dinner 90 tablet 3 03/31/2024 Active flecainide (TAMBOCOR) 100 mg tablet TAKE 1 TABLET(100 MG) BY MOUTH TWICE DAILY 60 tablet 2 06/12/2024 Active Active Problems Problem Noted Date Diagnosed Date Morbid (severe) obesity due to excess calories 0 01/06/2023 Body mass index (BMI) 50.0-59.9, adult Paroxysmal atrial fibrillation 05/05/2022 Paroxysmal atrial flutter 01/30/2022 History of DVT of lower extremity [...] on file Legal Sex Male 12:58 AM OFFICE AUDITOR Gender Identity Not on file Sexual Orientation Not on file Last Filed Vital Signs Vital Sign Reading Time Taken Comments Blood Pressure 130/82 04/07/2024 10:15 AM OFFICE AUDITOR Pulse 48 04/07/2024 10:15 AM OFFICE AUDITOR Temperature - - Respiratory Rate - - Oxygen Saturation 99% 04/07/2024 10:15 AM OFFICE AUDITOR Inhaled Oxygen Concentration - - Weight 190.5 kg (420 lb) 04/07/2024 10:15 AM OFFICE AUDITOR Height 185.4 cm (6' 1 ) 04/07/2024 10:15 AM OFFICE AUDITOR Body Mass Index 55.41 04/07/2024 10:15 AM OFFICE AUDITOR Plan of Treatment Not on file Procedures Procedure Name Priority Date/Time Associated Diagnosis Comments ECG 12-LEAD Routine 06/09/2024 12:37 PM OFFICE AUDITOR Persistent atrial fibrillation (HCC) from Last 3 Months Results * ECG 12 lead (06/09/2024 12:37 PM OFFICE AUDITOR) Liliana Landrum LOAN [employer]UM[employer] CLOSER ECG ORDERABLES Final Res ult from Last 3 Months Insurance [employer] [facility] Care Teams Lead Quality Control Technician Relationship Specialty Start Date End Date Ivan Lafleur MD [address] [facility] [address] [place] [address] PCP - General Family Medicine 06/09/24
--- OUTSIDE RECORDS SUMMARY | 2024-08-09 14:09 | XMS_ITS | Clinical Summary ---
Author Organization [address] Address [facility] [place] [address] Care Team Providers Care Multimedia Services Coordinator Name Role Phone Ivan Lafleur MD Primary Care Provider Allergies No known [...] mouth 2 (two) times a day Active -qowb-H mfolate-algal 27 mg iron-1.13 mg-581.92 mg capsule [...] Type Department Care Team Description 07/05/2024 Telephone [facility] [address] [place] [phone] Boris Lee MD DOT letter; Hypertension 06/09/2024 10:00 AM SOFTWARE CLERK Procedure visit [facility] [address] [facility] [address] [place] [phone] Persistent atrial fibrillation (HCC) 06/02/2024 Telephone [facility] [address] [facility] [address] [place] [phone] Angela Brantley NP low HR; Dizziness; Fatigue from Last 3 Months Surgical History Surgery [...] on file Legal Sex Male 12:58 AM SOFTWARE CLERK Gender Identity Not on file Sexual Orientation Not on file Obstetrics History Last Filed Vital Signs Vital Sign Reading Time Taken Comments Blood Pressure 130/82 04/07/2024 10:15 AM SOFTWARE CLERK Pulse 48 04/07/2024 10:15 AM SOFTWARE CLERK Temperature - - Respiratory Rate - - Oxygen Saturation 99% 04/07/2024 10:15 AM SOFTWARE CLERK Inhaled Oxygen Concentration - - Weight 190.5 kg (420 lb) 04/07/2024 10:15 AM SOFTWARE CLERK Height 185.4 cm (6' 1 ) 04/07/2024 10:15 AM SOFTWARE CLERK Body Mass Index 55.41 04/07/2024 10:15 AM SOFTWARE CLERK Plan of Treatment Health Maintenance Due Date Last Done Comments Colon Cancer Screening-Colonoscopy 1959 Depression Screening 1959 Fall Risk Assessment 1959 Hepatitis C Screening 1959 Prostate Cancer Screening-PSA 1959 DTaP/Tdap/Td Vaccine (1 - Tdap) 08/04/1970 Hepatitis B Screening 08/04/1977 Pneumococcal vaccine 65+ (1 of 1 - PCV) 08/04/2009 Zoster Vaccine (1 of 2) 08/04/2009 Abdominal Aortic Aneurysm (AAA) Screen 08/04/2024 Well Visit 65+ 08/04/2024 Influenza Vaccine (Season Ended) 2024 Procedures Procedure Name Priority Date/Time Associated Diagnosis Comments ECG 12-LEAD Routine 06/09/2024 12:37 PM SOFTWARE CLERK Persistent atrial fibrillation (HCC) from Last 3 Months Results * ECG 12 lead (06/09/2024 12:37 PM SOFTWARE CLERK) Liliana Landrum NP ECG ORDERABLES Final Res ult from Last 3 Months Insurance [employer] [facility] [employer] Care Teams Multimedia Services Coordinator Relationship Specialty Start Date End Date Ivan Lafleur MD [address] [facility] [address] [place] [address] PCP - General Family Medicine 06/09/24
--- OUTSIDE RECORDS SUMMARY | 2024-08-09 14:09 | XMS_ITS | Clinical Summary ---
Author Organization [facility] [place] Address [address] [facility] [address] Care Team Providers Care Electrical Machinist Name Role Phone Boris Lee MD Unavailable [phone] Lizbeth Mccoy MD Primary Care Provider + Source Comments [facility],non-owned Affiliates and Associated Physician Practices is amultiple site organization consisting of ambulatory clinics and hospital sitesin [place], [place] and [place]. This disclosure is being madepursuant to the Care Everywhere program and may not contain all information available regarding this patient. Last updated 18.[facility] [place] Allergies No known active allergies Medications * Be aware that medications may not be up to date on this document. Alwaysverify current medications with the patient. metoprolol succinate XL 24hr (Toprol XL) 100 MG tablet Take 1 (one) tablet by mouth once daily 3 Active Xarelto 20 MG tablet Take 1 (one) tablet by mouth as directed 3 Active tiZANidine (Zanaflex) 4 MG tablet Take 1 (one) tablet by mouth as directed 3 Active losartan-hydro CHLOROthiazide (Hyzaar) 100-25 MG tablet Take 1 (one) tablet by mouth once daily 3 Active aspirin EC (Ecotrin) 81 MG tablet Take 1 (one) tablet by mouth once daily Active oxyCODONE-acet aminophen (Percocet) 7.5-325 MG tablet Take 1 (one) tablet by mouth every 6 hours as needed for Pain Active docusate sodium (Colace) 100 MG capsule Take 1 (one) capsule by mouth 2 times daily 60 capsule 3 Active Additional Information Patient taking differently:100 mg Oral2 TIMES DAILY PRN, Constipation, Reported on 03/17/2023 metFORMIN (Glucophage) 500 MG tablet Take 1 (one) tablet by mouth 2 times daily with morning and evening meal 3 Active Farxiga 5 MG tablet Take 1 (one) tablet by mouth once daily 3 Active atorvastatin (Lipitor) 80 MG tablet Take 1 (one) tablet by mouth at bedtime Active dilTIAZem SR 24hr (Dilt-XR) 240 MG capsule Take 1 (one) capsule by mouth every morning 3 Active ibuprofen (Motrin) 800 MG tablet Take 1 (one) tablet by mouth every 8 hours as needed 3 Active Ozempic, 2 MG/DOSE, 8 MG/3ML pen Inject 2 (two) mg subcutaneously every 7 days 3 Active Active Problems Problem Noted Date Diagnosed Date Body mass index (BMI) 50.0-59.9, adult 3 03/17/2023 Morbid (severe) obesity due to excess [...] at Not on file Legal Sex Male 11:58 AM CDT Gender Identity Not on file Sexual Orientation [...] 60-74 years 1-dose series) 2019 COVID-19 VACCINE (1 - 2023-2 5 season) 2023 DEPRESSION SCREENING 04/26/2024 INFLUENZA VACCINE (Season Ended) 2024 SCREENING FOR DIABETES 09/29/2025 3, 09/29/2022 HEPATITIS B VACCINE Aged Out No longe r eligible based on patient's age to complete this topic HIB VACCINE Aged Out No longer eligi ble based on patient's age to complete this topic HPV VACCINE Aged Out No longer eligi ble based on patient's age to complete this topic MENINGOCOCCAL (Group B) VACCINE SHARED DECISION-MAKING Aged Out No longer eligible based on patient's age to complete this topic MENINGOCOCCAL GROUPS A/C/Y/W VACCINE Aged Out No longer eligible b ased on patient's age to complete this topic Medical Devices Implanted Type Area Heel Seat Flap Stapler Device Identifier Shelf Expiration Date Model / Serial / Lot Sedgwick Sut Healix Adv Dynacord 5.5mm Implanted:Qty: 2 on 09/29/2022 by Akin Schuler MD at [facility] Right: Shoulder [employer] 06/23/2025 [id number] / / [id number] Sedgwick Sut Healix Adv 5.5mm Bcmps Slf Implanted:Qty: 2 on 09/29/2022 by Akin Schuler MD at [facility] Right: Shoulder [employer] 07/24/2025 [id number] / / [id number] Procedures Procedure Name Priority Date/Time Associated Diagnosis Comments GLUCOSE - POINT OF CARE Routine 09/29/2022 9:40 AM CDT from Last 3 Months or Most Recently Relevant to Health Maintenance Results * (ABNORMAL) GLUCOSE - POINT OF CARE (09/29/2022 9:40 AM CDT) [facility] Glucose WB/POC 112(H) 70 - 106 mg/dL 09/29/2022 9:46 AM CDT [facility] Specimen Type Venous 09/29/2022 9:46 AM CDT [facility] Blood BLOOD SPECIMEN / Unknown 09/29/2022 9:40 AM CDT 09/29/2022 9:46 AM CDT Akin Schuler MD LAB - POINT OF CARE ORDERABLES F inal Result [facility] [place] [phone] from Last 3 Months or Most Recently Relevant to Health Maintenance Insurance ANTHEM ANTHEM Care Teams Electrical Machinist Relationship Specialty Start Date End Date Lizbeth Mccoy MD [address] [place] [address] PCP - General Family Medicine 09/29/22 Boris Lee MD [address] [place] [address] Cardiology 08/19/22
[2024-08-09 14:21] LABS: Basophils Percent Auto 0.5 % (0.2-1.2); Eosinophils Absolute Auto 0.1 K/mm3 (0-0.3); Hematocrit 55.3 % (42.0-52.0); Hemoglobin 17.5 g/dL (14.0-18.0); Immature Granulocyte Absolute 0.02 K/mm3 (0.00-0.031); Immature Granulocyte Percent A 0.3 % (0-0.5); Lymphocytes Percent Auto 31.3 % (18.3-44.2); Mean Corpuscular HGB Conc 31.6 g/dl (32-36); Mean Corpuscular Hemoglobin 27.4 pg (26-34); Mean Corpuscular Volume 86.7 fl (80-100); Mean Platelet Volume 11.1 fl (7.4-10.4); Monocytes Absolute Auto 0.5 K/mm3 (0.1-0.6); Monocytes Percent Auto 7.7 % (2.6-8.5); Neutrophils Absolute Auto 3.7 K/mm3 (1.3-6.7); Neutrophils Percent Auto 58.2 % (45.5-73.1); Platelet Count Result 275 k/mm3 (150-375); Red Blood Count 6.38 M/mm3 (4.6-6.20); Red Cell Distribution Width 16.6 % (11.5-14.5); White Blood Count 6.4 K/mm3 (4.5-10.0)
[2024-08-09 14:46] LABS: Alanine Aminotransferase 37 U/L (6-50); Albumin Level 4.3 g/dL (3.5-5.1); Alkaline Phosphatase 74 U/L (38-126); Anion Gap 12 mmol/L (4-12); Aspartate Amino Transferase 27 U/L (17-59); Bilirubin,Total 0.7 mg/dL (0.2-1.3); Blood Urea Nitrogen 23 mg/dL (9-20); Calcium 9.5 mg/dL (8.4-10.2); Carbon Dioxide 28 mmol/L (22-30); Chloride 101 mmol/L (98-107); Cholesterol 148 mg/dL (0-200); Estimated Glomerular Filt Rate > 60; Glucose 111 mg/dL (65-110); HDL Direct 37 mg/dL; Potassium 3.6 mmol/L (3.4-5.0); Sodium 141 mmol/L (137-145); Triglycerides 174 mg/dL (<150)
[2024-08-09 14:50] LABS: Creatinine Urine 148.3 mg/dL
[2024-08-09 14:51] LABS: MALB Creatinine Ratio 81.8 mg/g (0-30); Microalbumin Urine Random 121.3 mg/L (0-16.7)
[2024-08-09 14:58] LABS: LDL Cholesterol Direct 73 mg/dL
[2024-08-09 17:28] LABS: Hemoglobin A1C 6.4 % (<5.7)
== END 2024-08-09 13:02 | disposition home or self-care (01) ==
PROVIDERS: PCP Family Medicine; Visit Provider Student in an Organized Health Care Education/Training Program
DX: E78.5 Hyperlipidemia, unspecified (principal); E11.9 Type 2 diabetes mellitus without complications; I10 Essential (primary) hypertension
CPT/HCPCS: 36415; 80053; 80061; 82043; 83036; 85025

== ENCOUNTER 2024-10-16 12:38 | Outpatient (CLI) | payer MEDICARE, SELFPAY ==
--- NOTE | ~2024-10-16 | MR_ITS ---
Procedure: MR shoulder LT wo con Ordering provider: LV Trinh History: . M25.512 - Pain in left shoulder . Comparison: Technique: MRI left shoulder without contrast. FINDINGS: ACROMIOCLAVICULAR JOINT: Mild arthropathy. Osteophyte formation is seen in the acromion process with indentation of the supraspinatous tendon. ROTATOR CUFF: The supraspinatus tendon shows focal areas of T2 bright signal suggestive of tendinosis or partial tear. No subacromial subdeltoid bursitis. Attenuation of the subscapularis tendinosis wit h bright signal suggestive of tendinosis versus partial tear. Fluid seen in the subscapularis bursa. PROXIMAL BICEPS TENDON: The proximal biceps tendon and biceps labral complex are normal. INFERIOR GLENOHUMERAL LIGAMENT COMPLEX: Normal anterior and posterior bands. Normal axillary pouch. LABRUM: The superior labrum is normal. The anteroinferior labrum is normal. The posterior labrum is normal. BONES: . Marrow signal is normal. GLENOHUMERAL JOINT SPACE: The glenohumeral joint space is narrowed. The articular cartilage is irregu lar. . No joint effusion. SUPERFICIAL AND DEEP SOFT TISSUES: Otherwise, normal. No paralabral cyst. IMPRESSION: Tendinosis versus partial tear of the supraspinatus and subscapularis tendons. Osteoarthritic changes of the glenohumeral joint and acromioclavicular joint. Reviewed, dictated and finalized at location A.
== END 2024-10-16 12:39 | disposition home or self-care (01) ==
LOC: MICIMG 12:39
PROVIDERS: PCP Family Medicine; Visit Provider Nurse Practitioner Family
DX: M19.012 Primary osteoarthritis, left shoulder (principal)
CPT/HCPCS: 73221

== ENCOUNTER 2024-11-14 14:35 | Inpatient (IN) | payer MEDICARE, SELFPAY ==
[2024-11-14] VITALS (16 sets, daily range): BP systolic 120–167; BP diastolic 83–114; PULSE 50–152; RESP 14–27; TEMP 36.6–36.9; O2SAT 95–99; BMI 53.2
--- NOTE | ~2024-11-14 | XR_ITS ---
EXAMINATION: XR chest 2V Exam Date/Time: 11/14/2024 14:50 CDT HISTORY: CP, HISTORY OF AFIB, HIGH BP Comparison: 06/02/2024. RESULT: Lines, tubes, and devices: None. Lungs and pleura: Clear. Cardiomediastinal silhouette: Stable. Other: No acute osseous or upper abdominal finding. IMPRESSION: No acute cardiopulmonary process. Reviewed, dictated and finalized at location K.
--- NOTE | 2024-11-14 14:36 | ECG_ITS ---
Test Date: 2024-11-14 14:38:50 Measurements Intervals [place] Rate: 152 P: 0 NM: 0 QRS: 150 QRSD: 197 T: 15 QT: 326 QTc: 520 Interpretive Statements PROBABLE ATRIAL FLUTTER WITH RAPID VENTRICULAR RESPONSE MARKED RIGHT AXIS DEVIATION [QRS AXIS > 100] RIGHT BUNDLE BRANCH BLOCK [120+ ms QRS DURATION, UPRIGHT V1, 40+ ms S IN I/aVL/V4/V5/V6] ST DEPRESSION, CONSIDER SUBENDOCARDIAL INJURY [0.1+ mV ST DEPRESSION] ABNORMAL ECG Electronically Signed On 11-15-2024 09:54:28 CDT by Werner Patton M.D.
--- OUTSIDE RECORDS SUMMARY | 2024-11-14 14:38 | XMS_ITS | Clinical Summary ---
Author Organization [place] [id number] [facility] Address [address] [place] [address] Care Team Providers Care Watch Train Assembler Name Role Phone Ivan Lafleur MD Primary Care Provider Allergies No known active allergies Medications atorvastatin (LIPITOR) 80 mg tablet Take 1 tablet (80 mg total) by mouth daily Active aspirin 81 mg enteric coated tablet Take 1 tablet (81 mg total) by mouth daily Active tiZANidine (ZANAFLEX) 4 mg tablet 2 Active oxyCODONE-acetam inophen (PERCOCET) 5-325 mg per tablet Take 1 tablet by mouth 3 (three) times a day 2 Active metFORMIN (GLUCOPHAGE) 500 mg tablet Take 1 tablet (500 mg total) by mouth 2 (two) times a day Active vtbjgmah34-dody- Lmfolate-algal 27 mg iron-1.13 mg-581.92 mg capsule Take by mouth Active flecainide (TAMBOCOR) 100 mg tablet TAKE 1 TABLET(100 MG) BY MOUTH TWICE DAILY 60 tablet 2 5 Active rivaroxaban (Xarelto) 20 mg tablet Take 1 tablet (20 mg total) by mouth daily with dinner 90 tablet 3 5 Active losartan-hydroch lorothiazide (HYZAAR) 100-25 mg per tabletIndication s:Essential hypertension TAKE 1 TABLET BY MOUTH DAILY 90 tablet 3 5 Active losartan-hydroch lorothiazide (HYZAAR) 100-25 mg per tabletIndication s:Essential hypertension TAKE 1 TABLET BY MOUTH DAILY 90 tablet 2 4 025 Discontinued Active Problems Problem Noted Date Diagnosed Date Morbid (severe) obesity due to excess calories 0 01/06/2023 Body mass index (BMI) 50.0-59.9, adult 3 Paroxysmal atrial fibrillation 05/05/2022 Paroxysmal atrial flutter 01/30/2022 History of DVT of lower extremity History of heart attack Hypertension CAD (coronary artery disease) Sleep apnea Varicose veins of both lower extremities with pa in Resolved Problems Problem Noted Date Diagnosed Date Resolved Date DVT (deep vein thrombosis) in 09/30/2020 Encounters Date Type Department Care Team Description 09/25/2024 Telephone [facility] Cardiology [address] [facility] [address] [place] [address] Boris Lee MD 08/29/2024 11:00 AM CDT Office Visit [facility] Medical [facility] Cardiology at [address] [place] [address] Boris Lee MD Coronary artery disease involving [place] coronary artery of [place] heart without angina pectoris (Primary Dx); Paroxysmal atrial fibrillation (HCC); Paroxysmal atrial flutter (HCC) from Last 3 Months Surgical History Surgery [...] on file 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 Gender Identity Not on file Sexual Orientation Not on file Obstetrics History Last Filed Vital Signs Vital Sign Reading Time Taken Comments Blood Pressure 138/82 08/29/2024 10:54 AM CDT Pulse 51 08/29/2024 10:54 AM CDT Temperature - - Respiratory Rate - - Oxygen Saturation 99% 08/29/2024 10:54 AM CDT Inhaled Oxygen Concentration - - Weight 183.7 kg (405 lb) 08/29/2024 10:54 AM CDT Height 185.4 cm (6' 1) 08/29/2024 10:54 AM CDT Body Mass Index 53.43 08/29/2024 10:54 AM CDT Plan of Treatment Health [...] 08/04/2024 Well Visit 65+ 08/04/2024 Influenza Vaccine (#1) 2024 Procedures Procedure Name Priority Date/Time Associated Diagnosis Comments ELECTROCARDIOGRAM REPORT Routine 025 2:33 PM CDT Coronary artery disease involving [place] coronary artery of [place] heart without angina pectoris Paroxysmal atrial flutter (HCC) from Last 3 Months Results * Electrocardiogram Report (08/29/2024 2:33 PM CDT) Boris Lee MD ECG ORDERABLES Final Re sult from Last 3 Months Insurance [employer] EXCHANGE [facility] MEDICARE [place] Care Teams Watch Train Assembler Relationship Specialty Start Date End Date Ivan Lafleur MD [address] [facility] [address] [place] [address] PCP - General Family Medicine 06/09/24
--- OUTSIDE RECORDS SUMMARY | 2024-11-14 14:38 | XMS_ITS | Data Portability ---
Author Organization [place] - [facility] Address [address] [place] [address] [place] [address] Assessment Encounter Date Assessment Date Assessment LastModified by Organization Details LastModified Time 01/20/2019 01/20/2019 01/20/19 this 58-year-old gentleman with comorbidities is here to establish care. 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 Patient grew up in [place]. He has 2 masters degrees. He is [...] which was counseling and/or coordination of care. [email or web address] Not available 01/24/2019 08:42:18 Plan of Treatment Reminders Order Date Submit Date Provider Last Modified By Organization Details Last Modified Time Details Appointments None recorded. Lab HbA1c (hemoglob in A1c), blood 2018 019 [facility] (Lab), [address], [place], [address], 9 18:37:54 lipid panel, serum - FASTING 2018 019 [facility] (Lab), [address], [address], 9 18:37:53 CMP, serum or plasma 2018 019 [facility] (Lab), [address], [place], [address], 9 18:37:55 TSH, serum or plasma 2018 [facility] (Lab), [address], [place], [address], 9 18:37:54 CRP, high sensitivi ty, serum or plasma 2018 [facility] (Lab), [address], [place], [address], 9 18:37:54 Referral pain managemen t referral 2018 [facility], [address] [facility] [facility] , [place], [address], 18:58:45 pain managemen t referral 2018 [facility], [address] [place] [address] , [address], [place], [address], 19:00:29 urologist referral 2018 [facility], [address], [address], [place], [address], 9 18:58:45 cardiolog ist referral 2018 [facility], [address], [address], [place], [address], 9 18:58:45 Procedures None recorded. Surgeries None recorded. Imaging None recorded. Medication Orders tizanidin e 4 mg tablet 2018 [facility] [id number], [address], [place], [address], 9 18:37:45 difloraso ne 0.05 % topical ointment [address] [facility] [id number], [address] [place], [address], 9 18:37:49 losartan 100 mg-hydroc hlorothia zide 25 mg tablet [address] [facility] [id number], [address] [place], [address], 9 18:43:46 Patient TargetsNo targets recorded. Patient Instructions Encounter Date Encounter Id Patient Instructions Last Modified By Organization Details Last Modified Time 01/20/2019 [id number] high cholesterol : care instructions Not available 01/20/2019 18:37:37 learning about healthy weight Not available 01/20/2019 18:37:37 sleep apnea: car e instructions Not available 01/20/2019 18:37:37 high blood pressure: care instructions Not available 01/20/2019 18:37:37 learning about high blood pressure Not available 01/20/2019 18:37:37 Reason for Referral Pain Management Referral for Chronic low back pain Referring Physician: Family Jonathan Hickman, Encounter Date: 01/20/2019 Landing Support Specialist Referral for Co ronary arteriosclerosis Referring Physician: [...] Address Organization Details Recorded Time Essential hypertension 65838226 Active 2018 [place] [facility] [place], 9 18:23:09 Coronary arterioscleros is 32290176 Active 2018 Kirk ferguson [facility], 9 18:24:00 Hyperlipidemia 92275060 Active 2018 [place] Ascenc[facility], 18:24:20 Body mass index 40+ - severely obese 832860357 Active 2018 Kirk ferguson [facility], 18:33:59 Chronic low back pain 994458209 Active 2018 Kirk ferguson, [facility], 18:34:05 Psoriasis 2092045 Active 2018 Kirk ferguson [facility], 18:34:10 Obstructive sleep apnea syndrome 36470913 Active 2018 Kirk ferguson [facility], 18:35:00 Screening for cardiovascular system disease Active 2018 Kirk ferguson [facility], 9 19:08:17 Urethral stricture 65015502 Active 2018 Kirk ferguson [facility], 19:08:21 Opioid dependence 41602654 Active 2018 Kirk ferguson [facility], 9 19:10:27 Problem Notes None recorded. Procedures Surgical History Date Name Laterality Status Provider Name and Address Organization Details Recorded Time total knee replacement completed Kirk Loza [facility], 01/20/2019 18:25:10 excision of mass of neck completed Kirk Loza [facility], 01/20/2019 18:43:00 Imaging Results None recorded. [...] blood by Pulse oximetry Respiratory rate Systolic And Diastolic Provider Name and Address Organization Details Last Updated DateTime 9 185.42 cm 46.7 kg/m2 304317. 98 g 98.5 [degF] 78 /min 94 % 94 % 16 /min 145/95 mm[Hg] Boris ANGELES - [facility], 9 18:18:45 Social History Question Answer Notes LastModified by [employer] ion Details LastModified Time Tobacco Smoking Status Former Smoker Boris Foster [facility] [place] - [facility], 01/20/2019 18:19:03 How Many Years Have You [...] SNOMED-CT Code Diagnosis ICD10 Code Diagnosis Note [id number] RAQUEL Hickman [facility] [employer] [address] [place] [place] [address] [address] [place] [address] 01/20/2019 18:01:37 01/20/2019 18:58:44 Body mass index 40+ - severely obese 709931712 Z68.42 01/20/19 not controlled , patient is in dire need of a lifestyle change, nutrition counseling performed Essential hypertension 66713793 I10 01/20/19 not controlled , losartan hydrochlor othiazide combo refills, patient will follow up in a month for recheck. See coronary artery disease. no dry cough noted. No history of hypokalemi a. Hyperlipidemia 26562591 E78.5 01/20/19, status unknown, statin refilled and lipid panel ordered. Patient states that he has been eating a bachelor's diet lately. He does not exercise lately. No myalgias from statin. Chronic low back pain 27 2111361 M54.5 01/20/19 neck stable, tizanidine refilled. Patient referred to pain management for hydrocodon e refill, at [facility] in [place]. Patient states that he has sciatica with radiation down the right leg. Patient's currently taking gabapentin , [place], and tizanidine . Tizanidine really helps the patient's sleep. Patient does have sleep apnea Psoriasis 6448328 L40.9 01/20/19 controlled , topical steroid refilled. Patient states that he was diagnosed with psoriasis years ago and gets lesions on his hands. It has been controlled with high potency steroids for years. Patient requesting refills. Coronary arteriosclerosis 41356456 I25.10 01/20/19. Stable, continue daily baby aspirin [...] exercise tolerance. Obstructiv e sleep apnea syndrome 61670134 G47.33 01/20/19 controlled , patient's compliant with CPAP. I'm concerned that patient may have some central sleep apnea considerjs cortes he is on [place] as well as a muscle relaxer. Patient will follow-up in a month and discuss the muscle relaxer use. Continue CPAP. Patient is obese. Screening for cardiovascular system disease 584586568 Z13.6 01/20/19 not stable, continue statin, lipid panel ordered, she has multiple comorbidit ies Urethral stricture 94722 002 N35.92 01/20/19 patient's current symptomati c, urology referral ordered, continue self-amelia terization . Patient has a diagnosis of strictures , they've been repaired twice by urologist, patient started to get symptoms again, he is self-amelia terization now. He denies any dysuria. Opioid dependence 326220 00 F11.20 01/20/19 stable, pain management referral to [facility] in [place]. Patient agrees to plan. Patient's currently taken [place] twice a day for chronic low back pain as well as left knee pain, status post total knee replacemen t. Health Concerns Section Related Observation LastModified by Organization Detai ls LastModified Time None Recorded Concern Status LastModified by Organization Details LastModified Time None Recorded Advance Directives Directive None Recorded Payers Insurance Date Sequence Insurance Name Policy Number Policy Blanca Covered Member ID Blanca Member ID Guarantor Name 01/20/2019 1 *SELF PAY* Ro maribel Herrera 02/14/2019 1 [employer] [id number] Jr Herrera [id number] Jr Herrera Notes Date Note Type Note Provider Name and Address Organization Details Recorded Time 01/20/2019 text/html 01/20/19 this 58-year-old gentleman with comorbidities is here to establish care. 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 Patient grew up in [place]. He has 2 masters degrees. He is [...] noted in the HPI. RAQUEL Oreilly [address] [facility] [address], [place], [address], [place] - [facility], 01/24/2019 08:42:22
--- OUTSIDE RECORDS SUMMARY | 2024-11-14 14:38 | XMS_ITS | Referral Summary ---
Author Organization [place] [id number] [facility] Address [address] [place] [address] Care Team Providers Care Soil Sort Worker Name Role Phone Ivan Lafleur MD Primary Care Provider Encounters Date Type Department Care Team Description 09/25/2024 Telephone [facility] Medical Group Cardiology [address] [address] [address] [place] [address] Boris Lee MD 08/29/2024 11:00 AM CDT Office Visit [facility] Medical Group Cardiology at [address] [place] [address] Boris Lee MD Coronary artery disease involving [place] coronary artery of [place] heart without angina pectoris (Primary Dx); Paroxysmal atrial fibrillation (HCC); Paroxysmal atrial flutter (HCC) from Last 3 Months Allergies No [...] mouth 2 (two) times a day Active -qlms- Lmfolate-algal 27 mg iron-1.13 mg-581.92 mg capsule [...] on file 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 Gender Identity Not on file Sexual Orientation [...] 08/29/2024 10:54 AM CDT Plan of Treatment Not on file Procedures Procedure Name Priority Date/Time Associated Diagnosis Comments ELECTROCARDIOGRAM REPORT Routine 025 2:33 PM CDT Coronary artery disease involving [place] coronary artery of [place] heart without angina pectoris Paroxysmal atrial flutter (HCC) from Last 3 Months Results * Electrocardiogram Report (08/29/2024 2:33 PM CDT) us Boris Lee MD ECG ORDERABLES Final Re sult from Last 3 Months Insurance [employer] EXCHANGE [employer] MEDICARE [place] [address] [id number] Care Teams Soil Sort Worker Relationship Specialty Start Date End Date Ivan Lafleur MD [address] [facility] [address] [place] [address] PCP - General Family Medicine 06/09/24
--- OUTSIDE RECORDS SUMMARY | 2024-11-14 14:38 | XMS_ITS | Clinical Summary ---
Author Organization [facility] [employer] Address [address] [facility] [place] [address] Care Team Providers Care Bore Mill Operator For Plastic Name Role Phone Boris Lee MD Unavailable [phone] Lizbeth Mccoy MD Primary Care Provider + Source Comments [facility],non-owned Affiliates and Associated Physician Practices is amultiple site organization consisting of ambulatory clinics and hospital sitesin [place], [place], [place] and [place]. This disclosure is being madepursuant to the Care Everywhere program and may not contain all information available regarding this patient. Last updated 18.[facility] [employer] Allergies No known active allergies Medications * [...] 9:07 AM CDT Height 185.4 cm (6' 1) 09/28/2022 10:54 AM CDT Body Mass Index [...] season) 2023 DEPRESSION SCREENING 04/26/2024 INFLUENZA VACCINE (#1) 2024 SCREENING FOR DIABETES 01/06/2026 , 09/29/2022, 09/29/2022 HEPATITIS B VACCINE Aged Out No [...] this topic Medical Devices Implanted Type Area Ibm Bpm Architect Device Identifier Shelf Expiration Date Model / Serial / Lot [place] Sut Healix Adv Dynacord 5.5mm Implanted:Qty: 2 on 09/29/2022 by Akin Schuler MD at [facility] Right: Shoulder [employer] 06/23/2025 [id number] / / [id number] [place] Sut Healix Adv 5.5mm Bcmps Slf Implanted:Qty: 2 on 09/29/2022 by Akin Schuler MD at [facility] Right: Shoulder [employer] 07/24/2025 [id number] / / [id number] Procedures Procedure Name Priority Date/Time Associated Diagnosis Comments GLUCOSE - POINT OF CARE Routine 09/29/2022 9:40 AM CDT from Last 3 Months or Most Recently Relevant to Health Maintenance Results * (ABNORMAL) GLUCOSE - POINT OF CARE (09/29/2022 9:40 AM CDT) Pathologist [facility] Glucose WB/POC 112(H) 70 - 106 mg/dL 09/29/2022 9:46 AM CDT [facility] Specimen Type Venous 09/29/2022 9:46 AM CDT [facility] Blood BLOOD SPECIMEN / Unknown 09/29/2022 9:40 AM CDT 09/29/2022 9:46 AM CDT Akin Schuler MD LAB - POINT OF CARE ORDERABLES F inal Result [facility] [place] [address] from Last 3 Months or Most Recently Relevant to Health Maintenance Insurance ANTHEM ANTHEM Care Teams Bore Mill Operator For Plastic Relationship Specialty Start Date End Date Lizbeth Mccoy MD [address] [place] [address] PCP - General Family Medicine 09/29/22 Boris Lee MD [address] [place] [address] Cardiology 08/19/22
[2024-11-14 15:02] LABS: INR 1.4; Prothrombin Time 16.9 Seconds (11.1-14.7)
[2024-11-14 15:03] LABS: Partial Thromboplastin Time 48.1 Seconds (22.3-36.8)
[2024-11-14 15:08] LABS: Hematocrit 54.0 % (42.0-52.0); Hemoglobin 17.5 g/dL (14.0-18.0); Immature Granulocyte Percent A 0.3 % (0-0.5); Lymphocytes Absolute Auto 2.44 K/mm3 (0.9-3.2); Mean Corpuscular HGB Conc 32.4 g/dl (32-36); Mean Corpuscular Hemoglobin 28.4 pg (26-34); Mean Corpuscular Volume 87.7 fl (80-100); Nucleated Red Blood Cells Absolute Auto 0.000 K/mm3 (0.0-0.012); Nucleated Red Blood Cells Perc 0.0 % (0.0-0.2); Platelet Count Result 240 k/mm3 (150-375); Red Blood Count 6.16 M/mm3 (4.6-6.20); White Blood Count 9.0 K/mm3 (4.5-10.0)
[2024-11-14 15:14] LABS: Alanine Aminotransferase 37 U/L (6-50); Albumin Level 4.4 g/dL (3.5-5.1); Alkaline Phosphatase 67 U/L (38-126); Anion Gap 12 mmol/L (4-12); Aspartate Amino Transferase 34 U/L (17-59); Bilirubin,Total 0.7 mg/dL (0.2-1.3); Blood Urea Nitrogen 28 mg/dL (9-20); Calcium 10.1 mg/dL (8.4-10.2); Carbon Dioxide 23 mmol/L (22-30); Chloride 104 mmol/L (98-107); Estimated CRCL calculation 101 ml/min; Estimated Glomerular Filt Rate > 60; Glucose 114 mg/dL (65-110); Lipase 31 U/L (23-300); Potassium 3.7 mmol/L (3.4-5.0); Sodium 139 mmol/L (137-145); Total Protein 8.0 g/dL (6.3-8.2)
[2024-11-14 15:21] LABS: Troponin I < 0.012 ng/mL (0.000-0.034)
[2024-11-14] MEDS: METOPROLOL TARTRATE INJ 5 MG/5 ML VIAL IV PUSH (15:44)
--- NOTE | 2024-11-14 15:46 | ECG_ITS ---
Test Date: 2024-11-14 15:48:33 Measurements Intervals [place] Rate: 99 P: 27 CA: 182 QRS: 80 QRSD: 209 T: 30 QT: 422 QTc: 543 Interpretive Statements SINUS RHYTHM WITH FREQUENT SUPRAVENTRICULAR PREMATURE COMPLEXES IN A BIGEMINAL PATTERN RIGHT BUNDLE BRANCH BLOCK ABNORMAL ECG Electronically Signed On 11-15-2024 09:56:54 CDT by Werner Patton M.D.
[2024-11-14] MEDS: LACTATED RINGERS 1,000 ML 300 ML IV CONT (15:49)
--- OUTSIDE RECORDS SUMMARY | 2024-11-14 16:04 | XMS_ITS | Clinical Summary ---
Author Organization [place] [id number] [facility] Address [address] [place] [address] Care Team Providers Care Tufting Machine Fixer Name Role Phone Ivan Lafleur MD Primary [...] mouth 2 (two) times a day Active -gjpz- Lmfolate-algal 27 mg iron-1.13 mg-581.92 mg capsule [...] Type Department Care Team Description 09/25/2024 Telephone [facility] Cardiology [address] [facility] [address] [place] [address] Boris Lee MD 08/29/2024 11:00 AM CDT Office Visit [facility] Cardiology at [address] [place] [address] Boris eLe MD Coronary artery disease involving [place] coronary artery of [place] heart without angina pectoris (Primary Dx); Paroxysmal [...] on file 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 Gender Identity Not on file Sexual Orientation [...] 2:33 PM CDT Coronary artery disease involving [place] coronary artery of [place] heart without angina pectoris Paroxysmal atrial flutter (HCC) from Last 3 Months Results * Electrocardiogram Report (08/29/2024 2:33 PM CDT) Boris Lee MD ECG ORDERABLES Final Re sult from Last 3 Months Insurance [employer] EXCHANGE [facility] MEDICARE [place] Care Teams Tufting Machine Fixer Relationship Specialty Start Date End Date Ivan Lafleur MD [address] [facility] [address] [place] [address] PCP - General Family Medicine 06/09/24
--- OUTSIDE RECORDS SUMMARY | 2024-11-14 16:04 | XMS_ITS | Clinical Summary ---
Author Organization [facility] [employer] Address [address] [facility] [place] [place] [address] Care Team Providers Care Bingo Caller Name Role Phone Boris Lee MD Unavailable [phone] Lizbeth Mccoy MD Primary Care Provider + Source Comments [facility],non-owned Affiliates and Associated Physician Practices is amultiple site organization consisting of ambulatory clinics and hospital sitesin [place], [place], [place] and [place]. This disclosure is being madepursuant to the Care Everywhere program and may not contain all information available regarding this patient. Last updated 18.[facility] [employer] Allergies No known active allergies Medications * [...] this topic Medical Devices Implanted Type Area Commercial Census Taker Device Identifier Shelf Expiration Date Model / Serial / Lot [place] Sut Healix Adv Dynacord 5.5mm Implanted:Qty: 2 on 09/29/2022 by [facility] Right: Shoulder [employer] 06/23/2025 [id number] / / [id number] [place] Sut Healix Adv 5.5mm Bcmps Slf Implanted:Qty: 2 on 09/29/2022 by Akin Schuler MD [facility] Right: Shoulder [employer] 07/24/2025 [id number] / / [id number] Procedures Procedure Name Priority Date/Time Associated Diagnosis Comments GLUCOSE - POINT OF CARE Routine 09/29/2022 9:40 AM CDT from Last 3 Months or Most Recently Relevant to Health Maintenance Results * (ABNORMAL) GLUCOSE - POINT OF CARE (09/29/2022 9:40 AM CDT) Pathologist [facility] Glucose WB/POC 112(H) 70 - 106 mg/dL 09/29/2022 9:46 AM CDT [facility] Specimen Type Venous 09/29/2022 9:46 AM CDT [facility] Blood BLOOD SPECIMEN / Unknown 09/29/2022 9:40 AM CDT 09/29/2022 9:46 AM CDT Akin Schuler MD LAB - POINT OF CARE ORDERABLES F inal Result [facility] [place] [address] from Last 3 Months or Most Recently Relevant to Health Maintenance Insurance ANTHEM ANTHEM Care Teams Bingo Caller Relationship Specialty Start Date End Date Lizbeth Mccyo MD [address] [place] [address] PCP - General Family Medicine 09/29/22 Boris Lee MD [address] [place] [address] Cardiology 08/19/22
--- OUTSIDE RECORDS SUMMARY | 2024-11-14 16:04 | XMS_ITS | Referral Summary ---
Author Organization [place] [id number] Address [address] [place] [address] Care Team Providers Care Hearing Aid Mechanic Name Role Phone Ivan Lafleur MD Primary Care Provider Encounters Date Type Department Care Team Description 09/25/2024 Telephone [facility] Cardiology [address] [address] [address] [place] [address] Boris Lee MD 08/29/2024 11:00 AM CDT Office Visit [facility] Cardiology at [address] [place] [address] Boris Lee MD Coronary artery disease involving [place] coronary artery of [place] heart without angina pectoris (Primary Dx); Paroxysmal [...] mouth 2 (two) times a day Active [id number] Lmfolate-algal 27 mg iron-1.13 mg-581.92 mg capsule [...] on file 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 Gender Identity Not on file Sexual Orientation [...] 2:33 PM CDT Coronary artery disease involving [place] coronary artery of [place] heart without angina pectoris Paroxysmal atrial flutter (HCC) from Last 3 Months Results * Electrocardiogram Report (08/29/2024 2:33 PM CDT) us Boris Lee MD ECG ORDERABLES Final Re sult from Last 3 Months Insurance [employer] [place] [employer] EX[employer]ANGE BCBS MEDICARE [place] [address] [id number] Care Teams Hearing Aid Mechanic Relationship Specialty Start Date End Date Ivan Lafleur MD [address] [facility] [address] [place] [address] PCP - General Family Medicine 06/09/24
--- NOTE | 2024-11-14 16:13 | ED_ITS ---
HPI - General Adult General Chief complaint: Chest Pain Stated complaint: chest pain Time Seen by Provider: 11/14/24 15:31 History of Present Illness HPI narrative: 64-year-old male present to the emergency department for evaluation for rapid heart rate. Patient does have a known history of AFib a flutter and does take flecainide. Patient reports he has been taking his medication as directed has not missed any doses. Patient denies any excessive heat exposure denies any nausea vomiting. Patient does follow-up with Dr Lee. Upon arrival patient heart rate in the 150s and patient was complaining of some right-sided chest pain and lightheadedness. Patient has prior history of hypertension, diabetes, AFib, a flutter, obesity, high cholesterol, coronary disease. Related Data Home Medications ?Medication ?Instructions ?Recorded ?Confirmed ?Last Taken ?Type multivitamin 1 tablet PO DAILY 09/03/20 11/14/24 11/14/24 07:00 History 1 tablet nitroglycerin 0.4 mg sublingual 0.4 mg sublingual Q5M PRN Angina 09/03/20 11/14/24 11/14/24 14:00 History tablet 0.4 mg rivaroxaban 20 mg tablet (Xarelto) 20 mg PO HS 05/23/22 11/14/24 11/13/24 21:00 History 20 mg oxycodone-acetaminophen 7.5 mg-300 1 tablet PO TID PRN pain 03/08/23 11/14/24 11/14/24 07:00 History mg tablet 1 tablet flecainide 100 mg tablet 100 mg PO Q12H 03/20/24 11/14/24 11/14/24 07:00 History 100 mg metformin 1,000 mg tablet 1,000 mg PO BID 11/14/24 11/14/24 11/14/24 07:00 History 1,000 mg tizanidine 4 mg tablet 6 mg PO HS 11/14/24 11/14/24 11/13/24 21:00 History 6 mg Allergies Allergy/AdvReac Type Severity Reaction Status Date / Time No Known Allergies Allergy Mild Verified 11/14/24 14:45 Review of Systems 2 Review of Systems: All systems reviewed & are unremarkable except as noted in HPI and below PMFSH Past Medical History Medical History (Updated 11/14/24 @ 21:16 by Deandre Gómez MD) Type 2 diabetes mellitus Hypertension Coronary artery disease 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 Diabetes mellitus with microalbuminuria Left shoulder pain Right hip pain Urethral stricture Atrial fibrillation, chronic Pulmonary nodule Diabetic nephropathy Hematuria Atrial flutter Diabetes mellitus Right shoulder pain Rotator cuff tendonitis Left knee DJD Right knee DJD Back pain Right shoulder pain Discoloration of skin Shoulder arthritis Lipoma Overeating Extreme obesity New onset type 2 diabetes mellitus Establishing care with new doctor, encounter for Hyperlipidemia Left leg DVT Morbid obesity due to excess calories Chronic pain Candidosis of skin SALLY (obstructive sleep apnea) Surgical History Surgical History (Updated 11/14/24 @ 21:01 by Randi Millard PA-C) History of coronary artery stent placement H/O cystostomy History of left knee replacement History of cardiac cath Family History Family History Father Diabetes mellitus Cerebrovascular accident Mother Colon cancer Social History Social History Social History: the patient is and lives with his daughter. he has 2 children. 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 At this point he does not have a durable power of metallography teacher for healthcare. The patient drinks once a month and denies any drugs but recently was started on phentermine for weight loss. Code status full code Smoking packs per day: 1.5 Smoking cigarettes per day: 30.0 Years smoked: 30 Smoking pack-years: 45.00 Smoking status: Former smoker Tobacco type: cigarettes Second hand tobacco smoke exposure: No Smoking end date: 04/26/02 Alcohol intake: never Alcohol use details: Rarely Substance use: never Substance use type: does not use Last use: 25 years ago. 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 Gender identity (if verbalized by the patient): Male Sexual Orientation (if Verbalized by the Patient): Straight or Heterosexual Spiritual care concerns: No Exam 2 Narrative: APPEARANCE: Obesity HEAD: normocephalic, atraumatic. EYES: PERRLA/EOMI, conjunctivae clear. NOSE: Normal no drainage EARS:TMS clear with good light reflex. THROAT: Pharynx clear, no exudate. NECK: Supple. No adenopathy, no masses. RESPIRATORY: Airway patent, respirations nonlabored. Clear to auscultation bilaterally, no rales, rhonchi, wheezing. CARDIOVASCULAR: Tachycardia ABDOMINAL: Soft, nontender, nondistended, normal bowel sounds MUSCULOSKELETAL: Moves all extremities. Strength/ROM intact, No edema, No calf tenderness. NEURO: Alert. Cranial nerves II through XII intact. Good gait. Good coordination SKIN: Warm, dry. Normal Color Course Vital Signs Vital signs: Vital Signs Temperature 98.5 F 11/14/24 14:41 Pulse Rate 151 H 11/14/24 14:41 Respiratory Rate 18 11/14/24 14:41 Blood Pressure 120/92 H 11/14/24 14:41 Pulse Oximetry 98 11/14/24 14:41 Oxygen Delivery Room Air 11/14/24 14:41 Temperature 98 F 11/14/24 19:26 Pulse Rate 50 L 11/14/24 20:30 Respiratory Rate 20 11/14/24 20:30 Blood Pressure 134/83 11/14/24 19:26 Pulse Oximetry 95 11/14/24 20:30 Oxygen Delivery Room Air 11/14/24 20:30 Fraction of Inspired Oxygen 21 11/14/24 20:30 Medical Decision Making [facility] Narrative Medical decision making narrative: 64-year-old male presents emergency department for evaluation for rapid heart rate into the 150s. Patient did report some right-sided chest pain with this. Patient was treated with 5 of IV Lopressor patient did have conversion back to a sinus rhythm. Patient did have a normal sinus rhythm at times but also had sinus rhythm with frequent PVCs. When patient stood the bedside he did have an increase of his heart rate back to the 150s and did become symptomatic again. Patient is currently afebrile with no leukocytosis hemoglobin of 17.5. INR 1.4. Patient is on Xarelto not missed any doses. Patient's troponin was negative. No acute electrolyte abnormalities. Chest x-ray shows no acute cardiopulmonary abnormality. Case was discussed with Cardiology and they will be consulted. Discussed case with hospitalist patient was accepted to the IMU for further evaluation. Patient was updated on results of his workup was comfortable with plan for admission for further evaluation. Critical Care Procedure Note Authorized and Performed by: Deandre Gómez Total critical care time: Approximately 36 minutes Due to a high probability of clinically significant, life threatening deterioration, the patient required my highest level of preparedness to intervene emergently and I personally spent this critical care time directly and personally managing the patient. This critical care time included obtaining a history; examining the patient; pulse oximetry; ordering and review of studies; arranging urgent treatment with development of a management plan; evaluation of patient's response to treatment; frequent reassessment; and, discussions with other providers. This critical care time was performed to assess and manage the high probability of imminent, life-threatening deterioration that could result in multi-organ failure. It was exclusive of separately billable procedures and treating other patients and teaching time. Please see MDM section and the rest of the note for further information on patient assessment and treatment. Differential Diagnosis Differential Diagnosis: Dehydration, sinus tachycardia, SVT, AFib/a flutter, medication noncompliance, ACS, pulmonary embolism Vital Signs Vital Signs: Vital Signs Temperature 98.5 F 11/14/24 14:41 Pulse Rate 151 H 11/14/24 14:41 Respiratory Rate 18 11/14/24 14:41 Blood Pressure 120/92 H 11/14/24 14:41 Pulse Oximetry 98 11/14/24 14:41 Oxygen Delivery Room Air 11/14/24 14:41 Temperature 98 F 11/14/24 19:26 Pulse Rate 50 L 11/14/24 20:30 Respiratory Rate 20 11/14/24 20:30 Blood Pressure 134/83 11/14/24 19:26 Pulse Oximetry 95 11/14/24 20:30 Oxygen Delivery Room Air 11/14/24 20:30 Fraction of Inspired Oxygen 21 11/14/24 20:30 Lab Data Lab results reviewed: Yes I reviewed the patient's lab results. 11/14/24 14:39 11/14/24 14:39 Labs: Lab Results 11/14/24 11/14/24 11/14/24 Range/Units 14:39 15:30 17:27 WBC 9.0 (4.5-10.0) K/mm3 RBC 6.16 (4.6-6.20) M/mm3 Hgb 17.5 (14.0-18.0) g/dL Hct 54.0 H (42.0-52.0) % MCV 87.7 (80-100) fl MCH 28.4 (26-34) pg MCHC 32.4 (32-36) g/dl RDW 17.2 H (11.5-14.5) % Plt Count 240 (150-375) k/mm3 MPV 11.1 H (7.4-10.4) fl Immature Gran % (Auto) 0.3 (0-0.5) % Neut % (Auto) 64.0 (45.5-73.1) % Lymph % (Auto) 27.1 (18.3-44.2) % Millard % (Auto) 6.1 (2.6-8.5) % Eos % (Auto) 1.9 (0-4.4) % Baso % (Auto) 0.6 (0.2-1.2) % Lymph # (Auto) 2.44 (0.9-3.2) K/mm3 Millard # (Auto) 0.6 (0.1-0.6) K/mm3 Eos # (Auto) 0.2 (0-0.3) K/mm3 Baso # (Auto) 0.1 (0.0-0.1) K/mm3 Abs Immat Gran (auto) 0.03 (0.00-0.031) K/mm3 Absolute Neuts (auto) 5.8 (1.3-6.7) K/mm3 Absolute Nucleated RBC 0.000 (0.0-0.012) K/mm3 Nucleated RBC % 0.0 (0.0-0.2) % PT 16.9 H (11.1-14.7) Seconds INR 1.4 APTT 48.1 H (22.3-36.8) Seconds Sodium 139 (137-145) mmol/L Potassium 3.7 (3.4-5.0) mmol/L Chloride 104 (98-107) mmol/L Carbon Dioxide 23 (22-30) mmol/L Anion Gap 12 (4-12) mmol/L BUN 28 H (9-20) mg/dL Creatinine 1.07 (0.7-1.3) mg/dL Estim Creat Clear Calc 101 ml/min Estimated GFR > 60 (59 - ) Glucose 114 H (65-110) mg/dL Calcium 10.1 (8.4-10.2) mg/dL Magnesium 1.9 (1.6-2.3) mg/dL Total Bilirubin 0.7 (0.2-1.3) mg/dL AST 34 (17-59) U/L ALT 37 (6-50) U/L Alkaline Phosphatase 67 (38-126) U/L Troponin I < 0.012 < 0.012 (0.000-0.034) ng/mL Total Protein 8.0 (6.3-8.2) g/dL Albumin 4.4 (3.5-5.1) g/dL Lipase 31 (23-300) U/L TSH 2.580 (0.465-4.680) uIU/mL Imaging Data Radiologist's impression: Impressions Chest X-Ray 11/14/24 15:02 IMPRESSION: No acute cardiopulmonary process. ECG Data EKG #1: EKG Interpretation: tachycardia, atrial fibrillation, no ectopy, non- specific ST changes, ST depression, normal QRS and normal QT Critical Care Time Critical Care Time Critical Care Time: Yes Total Critical Care Time: 36 Discharge Plan Discharge Clinical Impression: Atrial fib/flutter, transient Patient Disposition: Still a Patient Condition: Improved Quality HEART score for chest pain patients History: slightly suspicious ECG: normal Age: > or = to 65 years Risk factors: > or = to 3 risk factors of atherosclerotic disease Troponin: < or = to 1x normal limit Heart score: 4
[2024-11-14 16:15] LABS: Magnesium 1.9 mg/dL (1.6-2.3)
[2024-11-14 16:45] LABS: Thyroid Stimulating Hormone 2.580 uIU/mL (0.465-4.680)
--- NOTE | 2024-11-14 17:23 | ECG_ITS ---
Test Date: 2024-11-14 17:28:12 Measurements Intervals Smoot Rate: 81 P: 32 WA: 174 QRS: 42 QRSD: 198 T: 13 QT: 476 QTc: 554 Interpretive Statements SINUS RHYTHM WITH FREQUENT SUPRAVENTRICULAR PREMATURE COMPLEXES INDETERMINATE AXIS INTRAVENTRICULAR CONDUCTION DELAY [130+ ms QRS DURATION] ABNORMAL ECG Compared to ECG 11/14/2024 15:48:33 Indeterminate axis now present Intraventricular conduction delay now present Right bundle-branch block no longer present Electronically Signed On 11-15-2024 09:59:32 CDT by Werner Patton M.D.
--- NOTE | 2024-11-14 17:30 | PC.NURSE ---
Pt. stood up to urinate. HR increased to 150 and sustained until pt. returned to semi-fowlers. Dr. Gómez notified.
--- NOTE | 2024-11-14 17:49 | PC.NURSE ---
Hospitalist Renetta at bedside talking with pt.
--- NOTE | 2024-11-14 17:55 | PC.NURSE ---
Per Hospitalist Renetta pt. given food and water.
[2024-11-14 18:06] LABS: Troponin I < 0.012 ng/mL (0.000-0.034)
--- NOTE | 2024-11-14 19:27 | ADMGEN ---
This patient, Jr Herrera, was admitted to IMU Room 211-01. Patient/family oriented to hospital policies and general routines including ID bracelet, bed and alarms, visiting hours, pain management, procedures, bathroom and other care routines, personal items, smoking policy, room service/diet, and visiting hours. Information on how to activate the Rapid Response Team has been discussed. Patient/Family are encouraged to report perceived risks to care and to ask questions if they do not understand what they are told or what they should do.
--- NOTE | 2024-11-14 20:00 | P.HP_ITS ---
H&P: HPI History of Present Illness Date/Time: 11/14/24 20:00 Chief Complaint: Chest pain. Narrative: This is a very pleasant 64-year-old male with history of coronary artery disease status post right coronary artery intervention 2016, paroxysmal atrial fibrillation and history of atrial flutter on flecainide and rivaroxaban for anticoagulation, hypertension, type 2 diabetes mellitus, deep venous thrombosis, and morbid obesity presented to the emergency department via private vehicle with complaints of chest pain. The last couple of days he has not been feeling like himself and reports that he has been getting lightheaded and dizzy when bending over and on occasion when going from sitting to standing. He has also been sweating more than usual and he was awakened from sleep last night with sweats which is unusual. Yesterday he was outside doing some work in the yard and that seemed to exacerbate those symptoms. He took it easy today and simply while sitting down he developed pressure in the mid chest described as feeling as though an elephant was sitting on the chest. He felt a bit breathless with that as well with mild sweats. He took nitroglycerin at about 14:00 with some improvement and he came in for evaluation. He is without chest pressure at the time my evaluation. He denies sensations of racing heart and palpitations at this time however on arrival he was in rapid atrial fibrillation though that has improved with metoprolol. He has not missed any doses of his medications. He denies syncope, vertigo, focal weakness, paresthesias, pleuritic pain, orthopnea, lower extremity edema, calf pain, and vomiting. Of note, he was started on Ozempic couple of weeks ago and seems to be tolerating that well however he when be surprised if he was a bit dehydrated as he does not seem to be drinking as much. He denies recent episodes of hypoglycemia. In the ED: Vital signs on arrival include a temperature of 98.5?, blood pressure 120/93, pulse 151, respiratory rate 18, SpO2 98% on room air. EKG showed suspected rapid atrial fibrillation with right bundle branch block and diffuse ST depressions. He was given metoprolol 5 mg IV and initially converted back to a sinus rhythm however when he stood up for orthostatic vital signs, his heart rate jumped back up to the 150s, again in atrial fibrillation. With a few minutes rest his heart rate improved to the 80s, still in AFib. CMP and CBC were pretty unremarkable although BUN was a bit elevated 28. Initial troponin was normal as was his TSH. He was started on lactated Ringer's and is being admitted in this setting for close monitoring and Cardiology consultation given chest pressure and rapid atrial fibrillation. Review of Systems Review of Systems: 12 systems were reviewed and are negativ e except for as per HPI. 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 Diabetes mellitus with microalbuminuria Left shoulder pain Right hip pain Urethral stricture Atrial fibrillation, chronic Pulmonary nodule Diabetic nephropathy Hematuria Atrial flutter Diabetes mellitus Right shoulder pain Rotator cuff tendonitis Left knee DJD Right knee DJD Back pain Right shoulder pain Discoloration of skin Shoulder arthritis Lipoma Overeating Extreme obesity New onset type 2 diabetes mellitus Establishing care with new doctor, encounter for Hyperlipidemia Left leg DVT Morbid obesity due to excess calories Chronic pain Candidosis of skin SALLY (obstructive sleep apnea) Surgical History Surgical History (Updated 11/14/24 @ 21:01 by Randi Millard PA-C) History of coronary artery stent placement H/O cystostomy History of left knee replacement History of cardiac cath Family History Family History Father Diabetes mellitus Cerebrovascular accident Mother Colon cancer Social History Social History Social History: the patient is and lives with his daughter. he has 2 children. 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 At this point he does not have a durable power of estate attorney for healthcare. The patient drinks once a month and denies any drugs but recently was started on phentermine for weight loss. Code status full code Smoking packs per day: 1.5 Smoking cigarettes per day: 30.0 Years smoked: 30 Smoking pack-years: 45.00 Smoking status: Former smoker Tobacco type: cigarettes Second hand tobacco smoke exposure: No Smoking end date: 04/26/02 Alcohol intake: never Alcohol use details: Rarely Substance use: never Substance use type: does not use Last use: 25 years ago. 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 Gender identity (if verbalized by the patient): Male Sexual Orientation (if Verbalized by the Patient): Straight or Heterosexual Spiritual care concerns: No Meds Home Medications and Allergies Home Medications ?Medication ?Instructions ?Recorded ?Confirmed ?Type multivitamin 1 tablet PO DAILY 09/03/20 11/14/24 History nitroglycerin 0.4 mg sublingual 0.4 mg sublingual Q5M PRN Angina 09/03/20 0 11/14/24 History tablet aspirin 81 mg tablet,delayed 81 mg PO QAM 30 days #30 tabs 12/27/21 11/14/24 Rx release rivaroxaban 20 mg tablet (Xarelto) 20 mg PO HS 05/23/22 11/14/24 History losartan 100 See Rx Instructions .Route 11/01/22 11/14/24 Rx mg-hydrochlorothiazide 25 mg tablet .COMPLEX #90 tabs oxycodone-acetaminophen 7.5 mg-300 1 tablet PO TID PRN pain 03/08/23 11/14/24 H istory mg tablet flecainide 100 mg tablet 100 mg PO Q12H 03/20/24 11/14/24 History atorvastatin 80 mg tablet 80 mg PO HS #100 tabs 04/21/24 11/14/24 Rx nystatin 100,000 unit/gram topical 1 applic topical BID #30 grams 08/02/24 11/14/24 Rx powder tirzepatide 2.5 mg/0.5 mL 2.5 mg (0.5 mL) subcut WEEKLY #2 mL 10/18/24 11/14/24 Rx subcutaneous pen injector (Poncho) metformin 1,000 mg tablet 1,000 mg PO BID 11/14/24 11/14/24 History tizanidine 4 mg tablet 6 mg PO HS 11/14/24 11/14/24 History Allergies Allergy/AdvReac Type Severity Reaction Status Date / Time No Known Allergies Allergy Mild Verified 11/14/24 14:45 Vital Signs Vital Signs - 24 hr 11/14/24 14:41 11/14/24 15:30 11/14/24 15:40 Temperature 98.5 F Pulse Rate 151 H 152 H 150 H Respiratory Rate 18 19 14 Blood Pressure 120/92 H 129/101 H 139/111 H Pulse Oximetry 98 99 99 Oxygen Delivery Room Air Room Air 11/14/24 15:44 11/14/24 15:50 11/14/24 16:23 Temperature Pulse Rate 150 H 95 99 Respiratory Rate 16 16 Blood Pressure 142/89 H 142/94 H Pulse Oximetry 98 96 Oxygen Delivery 11/14/24 16:45 11/14/24 17:40 11/14/24 17:43 Temperature Pulse Rate 99 79 119 H Respiratory Rate 20 Blood Pressure 130/102 H 153/109 H 157/94 H Pulse Oximetry 98 Oxygen Delivery 11/14/24 17:46 11/14/24 18:44 Temperature Pulse Rate 127 H 100 Respiratory Rate 20 Blood Pressure 147/114 H 167/111 H Pulse Oximetry 97 Oxygen Delivery Exam Narrative: General: Nontoxic-appearing male sitting up in bed in no distress. Weight: 170.2 kg. BMI: 53.3. HEENT: PERRL, EOMI. Sclera anicteric. Oral mucosa moist. Neck: Supple. Limited due to neck circumference. Respiratory: Lungs are clear to auscultation bilaterally. Cardiovascular: Irregularly irregular rate and rhythm. Gastrointestinal: Abdomen is soft, obese, nontender, and nondistended with positive bowel sounds. Skin: Warm and dry. Faint skin changes of the lower legs bilaterally. Extremities: No cyanosis or clubbing. Trace pretibial edema bilaterally. No palpable knots or cords. Neurological: Alert. Cranial nerves grossly intact. No gross focal deficits to casual conversation. Psychiatric: Pleasant and cooperative with normal mood and affect. Judgment and insight intact. H&P: Results Labs Labs: Short CBC 11/14/24 Range/Units 14:39 WBC 9.0 (4.5-10.0) K/mm3 Hgb 17.5 (14.0-18.0) g/dL Hct 54.0 H (42.0-52.0) % Plt Count 240 (150-375) k/mm3 [facility] 11/14/24 14:39 Sodium 139 Potassium 3.7 Chloride 104 Carbon Dioxide 23 BUN 28 H Creatinine 1.07 Glucose 114 H Calcium 10.1 Cardiac Enzymes 11/14/24 11/14/24 Range/Units 14:39 17:27 Troponin I < 0.012 < 0.012 (0.000-0.034) ng/mL Liver Function 11/14/24 Range/Units 14:39 Total Bilirubin 0.7 (0.2-1.3) mg/dL AST 34 (17-59) U/L ALT 37 (6-50) U/L Alkaline Phosphatase 67 (38-126) U/L Albumin 4.4 (3.5-5.1) g/dL Impressions Chest X-Ray 11/14/24 15:02 IMPRESSION: No acute cardiopulmonary process. Assessment and Plan Assessment and plan (1) Atrial fibrillation with rapid ventricular response: Code(s): I48.91 - Unspecified atrial fibrillation Status: Inactive (2) Chest pain: Code(s): R07.9 - Chest pain, unspecified Status: Acute (3) Diastolic dysfunction: Code(s): I51.89 - Other ill-defined heart diseases Status: Acute (4) Coronary artery disease: Code(s): I25.10 - Atherosclerotic heart disease of [place] coronary artery without angina pectoris Status: Acute (5) Hypertension: Code(s): I10 - Essential (primary) hypertension Status: Acute (6) Type 2 diabetes mellitus: Code(s): E11.9 - Type 2 diabetes mellitus without complications Status: Acute Plan The patient presented to the emergency department for evaluation of chest pressure as detailed in HPI. Labs, imaging, EKG, and all reports were personally reviewed. He arrived to the emergency department in rapid atrial fibrillation and had return of sinus rhythm after receiving metoprolol tartrate 5 mg IV x1. Upon checking orthostatic vital signs however his heart rate shot back up into the 130 to 150s in rapid atrial fibrillation however he is now rate controlled with rest. Continue flecainide and Xarelto for stroke prophylaxis. Chest pressure may be related to the rapid atrial fibrillation and he is without discomfort at this time. Given his history of coronary artery disease however he is being admitted for close monitoring and Cardiology consultation. Continue new aspirin and statin. He is complaining of feelings of lightheadedness and dizziness with standing and bending over and BUN is greater than 2 times that of his creatinine arguing that he may be a bit dry. He was started on Ozempic a couple of weeks ago and admits that he is perhaps not drinking as much as he used to. He will be judiciously hydrated overnight. Blood pressures have been stable and will be monitored. Initiate sliding scale insulin, Accu-Cheks, and hypoglycemic protocol. His home medications will be reviewed and resumed as appropriate. Findings and treatment plan were discussed with the patient. Questions were solicited and answered to satisfaction. The patient's medical management will be taken over by the hospitalist team in a.m. Quality VTE Prophylaxis VTE prophylaxis: pharmacologic ordered (On Xarelto) The patient has been admitted under observation status. Hospitalist [facility] Advance Care Plan I have confirmed that the patient's Advanced Care Plan is present, code status is documented, or surrogate decision maker is listed in patient medical record.: Yes Medication Reconciliation I have utilized all available resources to obtain, update and review the patients current medications (includes all prescriptions, OTC, herbals, cannabis, and nutritional supplements).: Yes
[2024-11-14 21:14] LABS: Troponin I 0.016 ng/mL (0.000-0.034)
[2024-11-14 21:24] LABS: Hemoglobin A1C 6.1 % (<5.7)
[2024-11-14] MEDS: ATORVASTATIN 40 MG TABLET 80 MG PO (21:37)
[2024-11-14] MEDS: TIZANIDINE HCL 2 MG TABLET 6 MG PO (21:37)
[2024-11-14] MEDS: FLECAINIDE ACETATE 100 MG TABLET PO (21:37)
[2024-11-14] MEDS: LACTATED RINGERS 500 ML 100 ML IV CONT (21:37)
[2024-11-14] MEDS: RIVAROXABAN 20 MG TABLET PO (21:37)
[2024-11-14] MEDS: oxyCODONE/ACETAMINOPHEN (*CRX) 5-325 MG TABLET 1 TABLET PO (21:42)
[2024-11-14] MEDS: oxyCODONE HCL (*CRX) 2.5 MG TAB IR PO (21:42)
[2024-11-15] VITALS (22 sets, daily range): BP systolic 135–179; BP diastolic 87–112; PULSE 72–105; RESP 18–28; TEMP 36.3–36.8; O2SAT 93–100
--- NOTE | 2024-11-15 | ECHO_ITS ---
Patient Info Name: Jr Herrera Age: 64 years : 1960 Gender: Male Ht: 72 in Wt: 392 lbs BSA: 3.10 m2 HR: 73 bpm BP: 169 / 104 mmHg Heart Rhythm: Sinus Rhythm Technical Quality: Good Exam Date: 11/15/2024 2:47 PM Patient Status: O Admit Date: 11/14/2024 Exam Type: CA echo dop color flow w con Complete two-dimensional, color flow and Doppler transthoracic echocardiogram is performed with contrast to opacify the left ventricle and to improve the deliniation of the left ventricle endocardial borders. Staff Referring Physician: Kendra Pineda Sheet Manager: Yandy Pepper Attending Provider: Rohith Zelaya MD Contrast/Agitated Saline Contrast/Ag. Saline: Definity Amount: 2.00 ml Administered By: Yandy Pepper Summary 1. Left ventricular chamber dimension is normal. 2. Left ventricular systolic function is normal, estimated at 55-60. 3. There is mildly increased left ventricular wall thickness. 4. The left ventricular diastolic function is grade II diastolic dysfunction. 5. Left atrial chamber dimension is moderately enlarged. 6. Right atrial chamber dimension is mildly enlarged. 7. There is mild aortic valve regurgitation. 8. There is mild aortic valve sclerosis. 9. There is mild mitral valve regurgitation. 10. The mitral valve has a calcified annulus. 11. There is mild tricuspid valve regurgitation. 12. The aortic root size at the sinus of Valsalva is mildly dilated. Left Ventricle Left ventricular chamber dimension is normal. Left ventricular systolic function is normal, estimated at 55-60. There is mildly increased left ventricular wall thickness. The left ventricular diastolic function is grade II diastolic dysfunction. Right Ventricle Right ventricular chamber dimension is normal. Right ventricular systolic function is normal. Left Atria Left atrial chamber dimension is moderately enlarged. Right Atria Right atrial chamber dimension is mildly enlarged. Atrial Septum Intact interatrial septum visualized by color flow imaging. Aortic Valve The aortic valve is trileaflet. There is mild aortic valve sclerosis. There is no aortic valve stenosis. There is mild aortic valve regurgitation. Pulmonic Valve The pulmonic valve is normal. There is no pulmonic valve stenosis. There is trace pulmonic regurgitation. Mitral Valve The mitral valve has a calcified annulus. There is no mitral valve stenosis. There is mild mitral valve regurgitation. Tricuspid Valve The tricuspid valve leaflets are normal. There is no significant tricuspid valve stenosis. There is mild tricuspid valve regurgitation. No pulmonary hypertension, estimated pulmonary arterial systolic pressure is 28 mmHg. Pericardium/Pleural The pericardium appears normal. There is no pericardial effusion. Inferior Vena Cava Dilated inferior vena cava with >50% collapse upon inspiration consistent with elevated right atrial pressure, 10 mmHg. Aorta The aortic root size at the sinus of Valsalva is mildly dilated. Left Ventricular Outflow Tract Name Value Normal LVOT 2D LVOT Diameter 2.3 cm LVOT Doppler LVOT Peak Velocity 83 cm/s LVOT Peak Gradient 3 mmHg LVOT Mean Gradient 1 mmHg LVOT VTI 19 cm LVOT Stroke Volume 78 ml LVOT CO 5.7 l/min LVOT CI 1.8 l/min/m2 Pulmonic Valve Name Value Normal RVOT Doppler RVOT Peak Velocity 75 cm/s RVOT Peak Gradient 2 mmHg PV Doppler PV Peak Velocity 92 cm/s PV Peak Gradient 3 mmHg Mitral Valve Name Value Normal MV Doppler MV Peak Gradient 3 mmHg MV Mean Gradient 2 mmHg MV Area (Cont Eq VTI) 3.3 cm2 MV Diastolic Function MV E Peak Velocity 71 cm/s MV A Peak Velocity 58 cm/s MV E/A 1.2 MV Decel Time (PW) 253 ms MV Annular TDI MV E/e' (Septal) 10.2 MV E/e' (Lateral) 8.0 MV E/e' (Average) 9.1 Tricuspid Valve Name Value Normal Estimated PAP/RSVP RA Pressure 10 mmHg <=5 PA Systolic Pressure 28 mmHg <36 Aortic Valve Name Value Normal AV Doppler AV Peak Velocity 116 cm/s AV Peak Gradient 5 mmHg AV Area (Cont Eq Ish[place]) 2.9 cm2 AV DI (Ishaan) 0.72 AV Regurgitation 2D LVOT Area 4.1 cm2 Ventricles Name Value Normal LV Dimensions 2D/MM IVS Diastolic Thickness (2D) 1.3 cm 0.6-1.0 LVID Diastole (2D) 4.9 cm 4.2-5.8 LVIW Diastolic Thickness (2D) 1.2 cm 0.6-1.0 LVID Systole (2D) 3.3 cm 2.5-4.0 LVOT Diameter 2.3 cm LV Mass (2D Cubed) 245.67 g 88.00-224.00 LV Mass Index (2D Cubed) 79 g/m2 49-115 Relative Wall Thickness (2D) 0.50 <=0.42 LV Fractional Shortening/Ejection Fraction 2D/MM LV Fractional Shortening (2D) 31 % 25-43 LV EF (2D Teichholz) 59 % LV Diastolic Volume (4C MOD) 139 ml LV EF (4C MOD) 51 % LV Diastolic Volume (2C MOD) 114 ml LV EF (2C MOD) 64 % LV Diastolic Volume (BP MOD) 125 ml 62-150 LV Diastolic Volume Index (BP MOD) 40 ml/m2 34-74 LV Systolic Volume (BP MOD) 53 ml 21-61 LV Systolic Volume Index (BP MOD) 17 ml/m2 11-31 LV EF (BP MOD) 57 % 52-72 LV Diastolic Length (4C) 8.8 cm LV Systolic Length (4C) 7.8 cm LV Stroke Volume (4C MOD) 72 ml Atria Name Value Normal LA Dimensions LA Volume (4C A-L) 107 ml LA Volume (BP A-L) 79 ml RA Dimensions RA Systolic Major [place] Length (4C) 6.2 cm 2.1-2.7 RA Area (4C) 20.4 cm2 <=18.0 Report Signatures
[2024-11-15 03:57] LABS: Hematocrit 49.0 % (42.0-52.0); Hemoglobin 15.8 g/dL (14.0-18.0); Mean Corpuscular HGB Conc 32.2 g/dl (32-36); Mean Corpuscular Hemoglobin 28.5 pg (26-34); Mean Corpuscular Volume 88.3 fl (80-100); Platelet Count Result 201 k/mm3 (150-375); Red Blood Count 5.55 M/mm3 (4.6-6.20); White Blood Count 7.9 K/mm3 (4.5-10.0)
[2024-11-15 04:13] LABS: Anion Gap 6 mmol/L (4-12); Blood Urea Nitrogen 24 mg/dL (9-20); Calcium 9.2 mg/dL (8.4-10.2); Carbon Dioxide 29 mmol/L (22-30); Chloride 104 mmol/L (98-107); Estimated CRCL calculation 109 ml/min; Estimated Glomerular Filt Rate > 60; Glucose 99 mg/dL (65-110); Magnesium 1.8 mg/dL (1.6-2.3); Potassium 3.4 mmol/L (3.4-5.0); Sodium 139 mmol/L (137-145)
[2024-11-15] MEDS: LOSARTAN POTASSIUM 100 MG TABLET PO (08:07)
[2024-11-15] MEDS: MULTIVITAMINS THERAPEUTIC TAB (*BKC) 1 TABLET PO (08:07)
[2024-11-15] MEDS: oxyCODONE/ACETAMINOPHEN (*CRX) 5-325 MG TABLET 1 TABLET PO ×3 (08:08→22:38)
[2024-11-15] MEDS: oxyCODONE HCL (*CRX) 2.5 MG TAB IR PO ×3 (08:08→22:39)
[2024-11-15] MEDS: ASPIRIN 81 MG ENTERIC TABLET PO (08:09)
--- NOTE | 2024-11-15 08:33 | P.CONCA_ITS ---
Assessment and Plan Assessment and plan (1) Atrial fib/flutter, transient: Code(s): I48.91 - Unspecified atrial fibrillation; I48.92 - Unspecified atrial flutter Status: Acute (2) Atrial flutter: Code(s): I48.92 - Unspecified atrial flutter Status: Acute Plan 64-year-old man with background of coronary disease, remote RCA stenting who has also had problems with atrial fibrillation and atrial flutter. He is morbidly obese and reports to be compliant with CPAP. Despite taking flecainide he came in with atrial flutter with two-to-one conduction. One dose of intravenous metoprolol did convert him to sinus rhythm and he has been feeling significantly better since then. I am going to add back a low dose of metoprolol succinate to his regimen for this reason. We recognized that he will become more bradycardic but we if we keep the dose low hopefully he will tolerate this. I will obtain another echocardiogram today to ensure that LV systolic function is reasonable. That has not been objectively measured for a few years. We will hopefully discharge him as his echocardiogram looks reasonable and I will will refer him to electrophysiology to consider an atrial flutter ablation. Boris Lee MD [facility] History of Present Illness History of Present Illness Consult date/time: 11/15/24 08:33 Reason For Visit: AFib/flutter, tachycardia Narrative: This is a 64-year-old man I am seeing at the request of the hospitalist with a recurrent symptomatic episode of atrial flutter. He is known to me from outpatient follow-up in the office for several years with atrial arrhythmias. In fact I just saw this patient last month in the office for follow-up and he was doing well at that point. He has a history of coronary artery disease as well in the remote past he underwent a right coronary artery intervention at another institution. He has not had any ischemic problems for a long time. I have been seeing him for several years because of atrial fibrillation and also atrial flutter. He was initially treated with diltiazem and anticoagulation and did well for a short time because of recurrences of atrial fibrillation he was transitioned to sotalol which did control his rhythm but he was feeling sluggish, fatigue lack of energy and did not wish to take the medication any longer. He was then transition back to standard metoprolol treatment. The patient then had recurrent palpitations and was found to have atrial flutter and was placed on flecainide treatment I believe in 2023. He was taking flecainide in combination with metoprolol and was maintaining sinus rhythm. This agent was used with the acknowledgement that he has coronary disease but he has had normal left ventricular systolic function and he had a positive clinical response to the agent. Along the way his metoprolol was discontinued because he experienced sinus bradycardia with heart rates in the 40s and it was hoped that he would do well with flecainide alone. On Wednesday of this past weekend he began to feel poorly with a sense of weakness fatigue lack of energy as well as some diaphoresis. Interestingly he was not specifically aware of tachycardia/palpitations. He eventually came into the emergency room yesterday afternoon and was in atypical atrial flutter with 2-1 conduction with a wide QRS, right bundle branch block. This QRS morphology is chronic for him. He was given a dose of intravenous metoprolol in the emergency room, 5 mg and did revert back to sinus rhythm at that time. He was admitted for further evaluation since restoring sinus rhythm he is feeling better. His troponin levels were negative x3 sets. He is compliant with his anticoagulation which is Xarelto 20 mg daily. His principal comorbidities morbid obesity and sleep apnea he has a BMI of 53. Review of Systems 2 Constitutional: Constitutional: Reports as per HPI Eyes: Eyes: Reports no additional eye complaints ENT: Reports system reviewed and no additional complaints, except as documented Cardiovascular: Cardiovascular: Reports as per HPI Respiratory: Respiratory: Reports no additional respiratory complaints Gastrointestinal: Gastrointestinal: Reports no additional gastrointestinal complaints Musculoskeletal: Musculoskeletal: Reports no additional musculoskeletal complaints Integumentary/Breasts: Skin/Breast: Reports system reviewed and no additional complaints, except as docu Neurologic: Reports system reviewed and no additional complaints, except as documented Endocrine: Endocrine: Reports no additional endocrine complaints Hematologic/Lymphatic: Hematologic/Lymphatic: Reports no additional hematologic/lymphatic complaints Allergic/Immunologic: Allergic/Immunologic: Reports no additional allergic/immunologic complaints [facility] Past Medical History Medical History (Updated 11/14/24 @ 21:16 by Deandre Gómez MD) Type 2 diabetes mellitus Hypertension Coronary artery disease 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 Diabetes mellitus with microalbuminuria Left shoulder pain Right hip pain Urethral stricture Atrial fibrillation, chronic Pulmonary nodule Diabetic nephropathy Hematuria Atrial flutter Diabetes mellitus Right shoulder pain Rotator cuff tendonitis Left knee DJD Right knee DJD Back pain Right shoulder pain Discoloration of skin Shoulder arthritis Lipoma Overeating Extreme obesity New onset type 2 diabetes mellitus Establishing care with new doctor, encounter for Hyperlipidemia Left leg DVT Morbid obesity due to excess calories Chronic pain Candidosis of skin SALLY (obstructive sleep apnea) Surgical History Surgical History (Updated 11/14/24 @ 21:01 by Randi Millard PA-C) History of coronary artery stent placement H/O cystostomy History of left knee replacement History of cardiac cath Family History Family History Father Diabetes mellitus Cerebrovascular accident Mother Colon cancer Social History Social History Social History: the patient is and lives with his daughter. he has 2 children. 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 At this point he does not have a durable power of service correspondent for healthcare. The patient drinks once a month and denies any drugs but recently was started on phentermine for weight loss. Code status full code Smoking packs per day: 1.5 Smoking cigarettes per day: 30.0 Years smoked: 30 Smoking pack-years: 45.00 Smoking status: Former smoker Tobacco type: cigarettes Second hand tobacco smoke exposure: No Smoking end date: 04/26/02 Alcohol intake: never Alcohol use details: Rarely Substance use: never Substance use type: does not use Last use: 25 years ago. 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 Gender identity (if verbalized by the patient): Male Sexual Orientation (if Verbalized by the Patient): Straight or Heterosexual Spiritual care concerns: No Meds Home Medications and Allergies Home Medications ?Medication ?Instructions ?Recorded ?Confirmed ?Type multivitamin 1 tablet PO DAILY 09/03/20 11/14/24 History nitroglycerin 0.4 mg sublingual 0.4 mg sublingual Q5M PRN Angina 09/03/20 11/14/24 History tablet aspirin 81 mg tablet,delayed 81 mg PO QAM 30 days #30 tabs 12/27/21 11/14/24 Rx release rivaroxaban 20 mg tablet (Xarelto) 20 mg PO HS 05/23/22 11/14/24 History losartan 100 See Rx Instructions .Route 11/01/22 11/14/24 Rx mg-hydrochlorothiazide 25 mg tablet .COMPLEX #90 tabs oxycodone-acetaminophen 7.5 mg-300 1 tablet PO TID PRN pain 03/08/23 11/14/24 History mg tablet flecainide 100 mg tablet 100 mg PO Q12H 03/20/24 11/14/24 History atorvastatin 80 mg tablet 80 mg PO HS #100 tabs 04/21/24 11/14/24 Rx nystatin 100,000 unit/gram topical 1 applic topical BID #30 grams 08/02/24 11/14/24 Rx powder tirzepatide 2.5 mg/0.5 mL 2.5 mg (0.5 mL) subcut WEEKLY #2 mL 10/18/24 11/14/24 Rx subcutaneous pen injector (Poncho) metformin 1,000 mg tablet 1,000 mg PO BID 11/14/24 11/14/24 History tizanidine 4 mg tablet 6 mg PO HS 11/14/24 11/14/24 History Allergies Allergy/AdvReac Type Severity Reaction Status Date / Time No Known Allergies Allergy Mild Verified 11/14/24 14:45 Vital Signs Vital Signs - 24 hr 11/14/24 14:41 11/14/24 15:30 11/14/24 15:40 Temperature 36.9 C Pulse Rate 151 H 152 H 150 H Respiratory Rate 18 19 14 Blood Pressure 120/92 H 129/101 H 139/111 H Pulse Oximetry 98 99 99 Oxygen Delivery Room Air Room Air Fraction of Inspired Oxygen 11/14/24 15:44 11/14/24 15:50 11/14/24 16:23 Temperature Pulse Rate 150 H 95 99 Respiratory Rate 16 16 Blood Pressure 142/89 H 142/94 H Pulse Oximetry 98 96 Oxygen Delivery Fraction of Inspired Oxygen 11/14/24 16:45 11/14/24 17:40 11/14/24 17:43 Temperature Pulse Rate 99 79 119 H Respiratory Rate 20 Blood Pressure 130/102 H 153/109 H 157/94 H Pulse Oximetry 98 Oxygen Delivery Fraction of Inspired Oxygen 11/14/24 17:46 11/14/24 18:44 11/14/24 19:26 Temperature 36.6 C Pulse Rate 127 H 100 77 Respiratory Rate 20 18 Blood Pressure 147/114 H 167/111 H 134/83 Pulse Oximetry 97 98 Oxygen Delivery Fraction of Inspired Oxygen 11/14/24 20:00 11/14/24 20:00 11/14/24 20:00 Temperature 36.6 C Pulse Rate 76 75 Respiratory Rate 18 Blood Pressure 135/92 H Pulse Oximetry 99 Oxygen Delivery Room Air Fraction of Inspired Oxygen 11/14/24 20:30 11/14/24 22:00 11/14/24 22:46 Temperature Pulse Rate 50 L 75 79 Respiratory Rate 20 27 H Blood Pressure Pulse Oximetry 95 97 Oxygen Delivery Room Air CPAP Fraction of Inspired Oxygen 21 11/15/24 00:00 11/15/24 00:00 11/15/24 00:00 Temperature 36.6 C Pulse Rate 73 75 Respiratory Rate 18 Blood Pressure 135/92 H Pulse Oximetry 99 Oxygen Delivery CPAP Fraction of Inspired Oxygen 11/15/24 00:03 11/15/24 01:55 11/15/24 03:37 Temperature Pulse Rate 80 73 Respiratory Rate 25 H Blood Pressure Pulse Oximetry 97 Oxygen Delivery CPAP CPAP Fraction of Inspired Oxygen 11/15/24 03:59 11/15/24 04:00 11/15/24 04:00 Temperature 36.6 C Pulse Rate 83 75 74 Respiratory Rate 28 H 20 Blood Pressure 166/94 H Pulse Oximetry 97 99 Oxygen Delivery CPAP Fraction of Inspired Oxygen 11/15/24 07:23 Temperature 36.4 C Pulse Rate 78 Respiratory Rate 18 Blood Pressure 159/111 H Pulse Oximetry 98 Oxygen Delivery Fraction of Inspired Oxygen Exam 2 Const: General: comfortable and no acute distress Other: Pleasant morbidly obese man resting comfortably in bed no distress HENMT: Mouth: Yes moist mucous membranes Eyes: Sclera: sclerae normal Neck: Neck: supple Other: Cannot assess JVD given his body habitus Resp: Effort & Inspection: normal respiratory effort Auscultation: clear to auscultation bilaterally Other: Breath sounds are distant but clear throughout Cardio: Rate: regular rate Rhythm: regular rhythm Other: PMI is not palpable no audible murmur GI: GI Palp: Yes Soft to palpation Auscultation: normal bowel sounds Skin: General skin exam: normal color Neuro: Other: Alert and oriented x3 Extrem: Other: Good perfusion Results Labs and Meds 11/15/24 03:33 11/15/24 03:33 Lab results: Cardiac Enzymes 11/14/24 11/14/24 11/14/24 Range/Units 14:39 17:27 20:39 AST 34 (17-59) U/L Troponin I < 0.012 < 0.012 0.016 D (0.000-0.034) ng/mL Coagulation 11/14/24 Range/Units 14:39 PT 16.9 H (11.1-14.7) Seconds APTT 48.1 H (22.3-36.8) Seconds CBC 11/14/24 11/15/24 Range/Units 14:39 03:33 WBC 9.0 7.9 (4.5-10.0) K/mm3 RBC 6.16 5.55 (4.6-6.20) M/mm3 Hgb 17.5 15.8 (14.0-18.0) g/dL Hct 54.0 H 49.0 (42.0-52.0) % Plt Count 240 201 (150-375) k/mm3 Lymph # (Auto) 2.44 (0.9-3.2) K/mm3 [place] # (Auto) 0.6 (0.1-0.6) K/mm3 Eos # (Auto) 0.2 (0-0.3) K/mm3 Baso # (Auto) 0.1 (0.0-0.1) K/mm3 Comprehensive Metabolic Panel 11/14/24 11/15/24 Range/Units 14:39 03:33 Sodium 139 139 (137-145) mmol/L Potassium 3.7 3.4 (3.4-5.0) mmol/L Chloride 104 104 (98-107) mmol/L Carbon Dioxide 23 29 (22-30) mmol/L BUN 28 H 24 H (9-20) mg/dL Creatinine 1.07 0.99 (0.7-1.3) mg/dL Glucose 114 H 99 (65-110) mg/dL Calcium 10.1 9.2 (8.4-10.2) mg/dL AST 34 (17-59) U/L ALT 37 (6-50) U/L Alkaline Phosphatase 67 (38-126) U/L Total Protein 8.0 (6.3-8.2) g/dL Albumin 4.4 (3.5-5.1) g/dL Intake and Output 11/14/24 11/15/24 11/15/24 23:59 07:59 15:59 Intake Total 1000 350 Output Total 500 Balance 1000 -150 Intake: IV 1000 Lactated Ringers 1,000 ml @ 300 1000 mls/hr IV CONT .Q3H20M STA Rx# :[id number] Oral 350 Output: Urine 500 Other: # Unmeasured Voids 2 Patient Weight 11/15/24 23:59 Weight 178.2 kg
[2024-11-15] MEDS: FLECAINIDE ACETATE 100 MG TABLET PO ×2 (08:45→20:43)
[2024-11-15] MEDS: METOPROLOL SUCCINATE EXT REL 25 MG TABCR PO (08:50)
[2024-11-15] MEDS: PERFLUTREN LIPID MICROSPHERES 1.5 ML VIAL DILUTED TO 10 ML TOTAL VOLUME IV PUSH (15:48)
--- NOTE | 2024-11-15 15:51 | IVDEFINITY ---
Prior to administration of IV Definity the patient was educated on the risks and benefits of the imaging enhancing agent including potential adverse side effects. The patient verbalized understanding. Allergies were verified. No exclusion criteria were identified and at least one of the following inclusion criteria were met: 1) physician request, 2) patient technically difficult to image (per the [place] [employer] guidelines of two or more segments not discernable within the apical view), or 3) questionable left ventricular function. ?
--- NOTE | 2024-11-15 16:51 | P.PNIM_ITS ---
Progress Note: A&P Assessment and Plan (1) Atrial fibrillation with rapid ventricular response: Code(s): I48.91 - Unspecified atrial fibrillation Status: Inactive (2) Chest pain: Code(s): R07.9 - Chest pain, unspecified Status: Acute (3) Diastolic dysfunction: Code(s): I51.89 - Other ill-defined heart diseases Status: Acute (4) Coronary artery disease: Code(s): I25.10 - Atherosclerotic heart disease of [place] coronary artery without angina pectoris Status: Acute (5) Hypertension: Code(s): I10 - Essential (primary) hypertension Status: Acute (6) Type 2 diabetes mellitus: Code(s): E11.9 - Type 2 diabetes mellitus without complications Status: Acute Plan The patient presented to the emergency department for evaluation of chest pressure as detailed in HPI. Labs, imaging, EKG, and all reports were personally reviewed. He arrived to the emergency department in rapid atrial fibrillation and had return of sinus rhythm after receiving metoprolol tartrate 5 mg IV x1. Upon checking orthostatic vital signs however his heart rate shot back up into the 130 to 150s in rapid atrial fibrillation however he is now rate controlled with rest. Continue flecainide and Xarelto for stroke prophylaxis. Chest pressure may be related to the rapid atrial fibrillation and he is without discomfort at this time. Given his history of coronary artery disease however he is being admitted for close monitoring and Cardiology consultation. Continue new aspirin and statin. He is complaining of feelings of lightheadedness and dizziness with standing and bending over and BUN is greater than 2 times that of his creatinine arguing that he may be a bit dry. He was started on Ozempic a couple of weeks ago and admits that he is perhaps not drinking as much as he used to. He will be judiciously hydrated overnight. Blood pressures have been stable and will be monitored. Initiate sliding scale insulin, Accu-Cheks, and hypoglycemic protocol. His home medications will be reviewed and resumed as appropriate. Findings and treatment plan were discussed with the patient. Questions were solicited and answered to satisfaction. The patient's medical management will be taken over by the hospitalist team in a.m. patient is morbidly obese and with history of Sleep apnea stats he is using his CPAP, he has history of CAD and atrial fib with flutter, he is on flecainide and still has atrial flutter, he he was given lopressor IV and converted to NSR and was feeling well, patient was seen by line service supervisor and ordered echo, will follow up, patient stats he feels better and wants to go home, will monitor and further recommendation to follow from his line service supervisor. Subjective Date/time seen: 11/15/24 16:51 Interval history: Narrative: This is a very pleasant 64-year-old male with history of coronary artery disease status post right coronary artery intervention 2016, paroxysmal atrial fibr illation and history of atrial flutter on flecainide and rivaroxaban for anticoagulation, hypertension, type 2 diabetes mellitus, deep venous thrombosis, and morbid obesity presented to the emergency department via private vehicle with complaints of chest pain. The last couple of days he has not been feeling like himself and reports that he has been getting lightheaded and dizzy when bending over and on occasion when going from sitting to standing. He has also been sweating more than usual and he was awakened from sleep last night with sweats which is unusual. Yesterday he was outside doing some work in the yard and that seemed to exacerbate those symptoms. He took it easy today and simply while sitting down he developed pressure in the mid chest described as feeling as though an elephant was sitting on the chest. He felt a bit breathless with that as well with mild sweats. He took nitroglycerin at about 14:00 with some improvement and he came in for evaluation. He is without chest pressure at the time my evaluation. He denies sensations of racing heart and palpitations at this time however on arrival he was in rapid atrial fibrillation though that has improved with metoprolol. He has not missed any doses of his medications. He denies syncope, vertigo, focal weakness, paresthesias, pleuritic pain, orthopnea, lower extremity edema, calf pain, and vomiting. Of note, he was started on Ozempic couple of weeks ago and seems to be tolerating that well however he when be surprised if he was a bit dehydrated as he does not seem to be drinking as much. He denies recent episodes of hypoglycemia. In the ED: Vital signs on arrival include a temperature of 98.5?, blood pressure 120/93, pulse 151, respiratory rate 18, SpO2 98% on room air. EKG showed suspected rapid atrial fibrillation with right bundle branch block and diffuse ST depressions. He was given metoprolol 5 mg IV and initially converted back to a sinus rhythm however when he stood up for orthostatic vital signs, his heart rate jumped back up to the 150s, again in atrial fibrillation. With a few minutes rest his heart rate improved to the 80s, still in AFib. CMP and CBC were pretty unremarkable although BUN was a bit elevated 28. Initial troponin was normal as was his TSH. He was started on lactated Ringer's and is being admitted in this setting for close monitoring and Cardiology consultation given chest pressure and rapid atrial fibrillation. patient is morbidly obese and with history of Sleep apnea stats he is using his CPAP, he has history of CAD and atrial fib with flutter, he is on flecainide and still has atrial flutter, he he was given lopressor IV and converted to NSR and was feeling well, patient was seen by line service supervisor and ordered echo, will follow up, patient stats he feels better and wants to go home, will monitor and further recommendation to follow from his line service supervisor. Review of Systems Review of Systems: 12 systems were reviewed and are negativ e except for as per HPI. Exam Narrative: Morbidly obese Patient is comfortable, NAD HEENT: eyes are clear and none icteric LUNGS:CTA HEART: RR S1S2 ABD: BS+, Soft and nontender Lower extremities: no edema SKIN: nonjaundiced Neuro: grossly intact. Objective Data Vital Signs Vital Signs: Vital Signs - 24 hr 11/14/24 17:40 11/14/24 17:43 11/14/24 17:46 Temperature Pulse Rate 79 119 H 127 H Respiratory Rate Blood Pressure 153/109 H 157/94 H 147/114 H Pulse Oximetry Oxygen Delivery Fraction of Inspired Oxygen 11/14/24 18:44 11/14/24 19:26 11/14/24 20:00 Temperature 36.6 C Pulse Rate 100 77 Respiratory Rate 20 18 Blood Pressure 167/111 H 134/83 Pulse Oximetry 97 98 Oxygen Delivery Room Air Fraction of Inspired Oxygen 11/14/24 20:00 11/14/24 20:00 11/14/24 20:30 Temperature 36.6 C Pulse Rate 76 75 50 L Respiratory Rate 18 20 Blood Pressure 135/92 H Pulse Oximetry 99 95 Oxygen Delivery Room Air Fraction of Inspired Oxygen 21 11/14/24 22:00 11/14/24 22:46 11/15/24 00:00 Temperature Pulse Rate 75 79 73 Respiratory Rate 27 H Blood Pressure Pulse Oximetry 97 Oxygen Delivery CPAP Fraction of Inspired Oxygen 11/15/24 00:00 11/15/24 00:00 11/15/24 00:03 Temperature 36.6 C Pulse Rate 75 80 Respiratory Rate 18 25 H Blood Pressure 135/92 H Pulse Oximetry 99 97 Oxygen Delivery CPAP CPAP Fraction of Inspired Oxygen 11/15/24 01:55 11/15/24 03:37 11/15/24 03:59 Temperature Pulse Rate 73 83 Respiratory Rate 28 H Blood Pressure Pulse Oximetry 97 Oxygen Delivery CPAP CPAP Fraction of Inspired Oxygen 11/15/24 04:00 11/15/24 04:00 11/15/24 06:00 Temperature 36.6 C Pulse Rate 75 74 75 Respiratory Rate 20 Blood Pressure 166/94 H Pulse Oximetry 99 Oxygen Delivery Fraction of Inspired Oxygen 11/15/24 07:23 11/15/24 08:00 11/15/24 08:00 Temperature 36.4 C 36.8 C Pulse Rate 78 75 73 Respiratory Rate 18 20 Blood Pressure 159/111 H 156/87 H Pulse Oximetry 98 98 Oxygen Delivery Fraction of Inspired Oxygen 11/15/24 08:45 11/15/24 08:50 11/15/24 10:00 Temperature Pulse Rate 78 76 72 Respiratory Rate Blood Pressure Pulse Oximetry Oxygen Delivery Fraction of Inspired Oxygen 11/15/24 11:41 11/15/24 12:00 11/15/24 12:25 Temperature 36.3 C L Pulse Rate 74 72 90 Respiratory Rate 18 Blood Pressure 163/112 H 160/102 H Pulse Oximetry 98 98 Oxygen Delivery Fraction of Inspired Oxygen 11/15/24 12:26 11/15/24 16:00 Temperature 36.7 C Pulse Rate 105 H 78 Respiratory Rate 20 Blood Pressure 169/104 H 179/103 H Pulse Oximetry 93 100 Oxygen Delivery Fraction of Inspired Oxygen Intake/Output Intake/Output: Intake & Output 11/12/24 11/13/24 11/14/24 11/15/24 23:59 23:59 23:59 23:59 Intake Total 1000 1070 Output Total 1100 Balance 1000 -30 Meds/Results Medications: Active Medications Generic Name Dose Route Start Last Admin Trade Name Freq PRN Reason Stop Dose Admin Acetaminophen 650 mg 11/14/24 21:04 Acetaminophen 325 Mg Tablet PO Q6H PRN Mild Pain (1-3) or Fever Aspirin 81 mg 11/15/24 09:00 11/15/24 08:09 Aspirin 81 Mg Enteric Tablet PO 81 mg QAM JESSIKA Administration Atorvastatin Calcium 80 mg 11/14/24 21:20 11/14/24 21:37 Atorvastatin 40 Mg Tablet PO 80 mg HS JESSIKA Administration Dextrose 12.5 gm 11/14/24 21:04 Dextrose 50% 25 Gm/50 Ml Syringe IV PUSH PRN PRN Hypoglycemia Protocol Flecainide Acetate 100 mg 11/14/24 21:05 11/15/24 08:45 Flecainide Acetate 100 Mg Tablet PO 100 mg Q12HR JESSIKA Administration Glucagon 1 mg 11/14/24 21:04 Glucagon For Inj 1 Mg Vial IM PRN PRN Hypoglycemia Protocol Glucose 15 gm 11/14/24 21:04 Glucose Oral Gel 15 Gm Of Glucse In 37.5 Gm Tube PO PRN PRN Hypoglycemia Protocol Hydralazine HCl 10 mg 11/15/24 15:57 11/15/24 16:26 Hydralazine 10 Mg Tablet PO 10 mg QID PRN Administration Blood Pressure - High Hydrochlorothiazide 25 mg 11/15/24 09:00 11/15/24 08:07 Hydrochlorothiazide 25 Mg Tablet PO 25 mg QAM JESSIKA Administration Dextrose 1,000 mls @ 100 mls/hr 11/14/24 21:04 Dextrose 5% 1,000 Ml IVPB PRN PRN Hypoglycemia Protocol Insulin Aspart 3 - 6 units 11/15/24 08:00 11/15/24 15:49 Insulin Aspart (*Bkc) 100 Units/Ml SUB-Q Not Given TIDWM [facility] Protocol Insulin Aspart 1 - 3 units 11/15/24 21:00 Insulin Aspart (*Bkc) 100 Units/Ml SUB-Q HS [facility] Protocol Losartan Potassium 100 mg 11/15/24 09:00 11/15/24 08:07 Losartan Potassium 100 Mg Tablet PO 100 mg DAILY JESSIKA Administration Metformin HCl 1,000 mg 11/16/24 09:00 Metformin Hcl 500 Mg Tablet PO DAILY JESSIKA Metformin HCl 500 mg 11/15/24 18:00 Metformin Hcl 500 Mg Tablet PO EVENING JESSIKA Metoprolol Succinate 25 mg 11/15/24 09:00 11/15/24 08:50 Metoprolol Succinate Ext Rel 25 Mg Tabcr PO 25 mg QAM JESSIKA Administration Miscellaneous Information 1 each 11/14/24 22:00 Central Supply Item XX 11/15/24 21:59 PRN PRN Informational Multivitamins Therapeutic 1 tablet 11/15/24 09:00 11/15/24 08:07 Multivitamins Therapeutic Tab (*Bkc) PO 1 tablet DAILY JESSIKA Administration Nitroglycerin 0.4 mg 11/14/24 21:04 Nitroglycerin Sl 0.4 Mg Tablet SUBLINGUAL Q5M PRN Angina Oxycodone HCl 2.5 mg 11/14/24 21:26 11/15/24 08:08 Oxycodone Hcl (*Crx) 2.5 Mg Tab Ir PO 2.5 mg TID PRN Administration Pain Rated 7-10 Oxycodone/Acetaminophen 1 tablet 11/14/24 21:20 11/15/24 08:08 Oxycodone/Acetaminophen (*Crx) 5-325 Mg Tablet PO 1 tablet TID PRN Administration Pain Rated 7-10 Perflutren Lipid Microsphere 0 ml 11/15/24 08:32 Perflutren Lipid Microspheres 1.5 Ml Vial Diluted To 10 Ml Total Volume IV PUSH 11/18/24 08:32 ONCE PRN adequate visualization Protocol Rivaroxaban 20 mg 11/14/24 21:20 11/14/24 21:37 Rivaroxaban 20 Mg Tablet PO 20 mg HS JESSIKA Administration Tizanidine HCl 6 mg 11/14/24 21:20 11/14/24 21:37 Tizanidine Hcl 2 Mg Tablet PO 6 mg HS JESSIKA Administration Radiology Results: ITS Impressions Chest X-Ray 11/14/24 15:02 IMPRESSION: No acute cardiopulmonary process. Labs Labs: Laboratory Results - last 24 hr 11/14/24 11/14/24 11/14/24 14:39 17:27 20:39 WBC RBC Hgb Hct MCV MCH MCHC RDW Plt Count MPV Sodium Potassium Chloride Carbon Dioxide Anion Gap BUN Creatinine Estim Creat Clear Calc Estimated GFR Glucose POC Capillary Glucose Hemoglobin A1c 6.1 H Calcium Magnesium Troponin I < 0.012 0.016 D 11/15/24 11/15/24 11/15/24 03:33 08:10 11:29 WBC 7.9 RBC 5.55 Hgb 15.8 Hct 49.0 MCV 88.3 MCH 28.5 MCHC 32.2 RDW 16.2 H Plt Count 201 MPV 10.9 H Sodium 139 Potassium 3.4 Chloride 104 Carbon Dioxide 29 Anion Gap 6 BUN 24 H Creatinine 0.99 Estim Creat Clear Calc 109 Estimated GFR > 60 Glucose 99 POC Capillary Glucose 106 H 139 H Hemoglobin A1c Calcium 9.2 Magnesium 1.8 Troponin I 11/15/24 15:35 WBC RBC Hgb Hct MCV MCH MCHC RDW Plt Count MPV Sodium Potassium Chloride Carbon Dioxide Anion Gap BUN Creatinine Estim Creat Clear Calc Estimated GFR Glucose POC Capillary Glucose 105 Hemoglobin A1c Calcium Magnesium Troponin I Quality VTE Prophylaxis VTE prophylaxis: pharmacologic ordered (On Xarelto)
[2024-11-15] MEDS: ATORVASTATIN 40 MG TABLET 80 MG PO (20:38)
[2024-11-15] MEDS: RIVAROXABAN 20 MG TABLET PO (20:38)
[2024-11-15] MEDS: TIZANIDINE HCL 2 MG TABLET 6 MG PO (20:38)
[2024-11-16] VITALS (22 sets, daily range): BP systolic 110–215; BP diastolic 86–120; PULSE 72–155; RESP 18–20; TEMP 36.4–37.1; O2SAT 97–100
[2024-11-16 04:22] LABS: Hematocrit 48.5 % (42.0-52.0); Hemoglobin 15.6 g/dL (14.0-18.0); Mean Corpuscular HGB Conc 32.2 g/dl (32-36); Mean Corpuscular Hemoglobin 28.5 pg (26-34); Mean Corpuscular Volume 88.7 fl (80-100); Platelet Count Result 201 k/mm3 (150-375); Red Blood Count 5.47 M/mm3 (4.6-6.20); White Blood Count 7.6 K/mm3 (4.5-10.0)
[2024-11-16 04:49] LABS: Magnesium 1.8 mg/dL (1.6-2.3)
[2024-11-16] MEDS: LOSARTAN POTASSIUM 100 MG TABLET PO (08:27)
[2024-11-16] MEDS: ASPIRIN 81 MG ENTERIC TABLET PO (08:27)
[2024-11-16] MEDS: MULTIVITAMINS THERAPEUTIC TAB (*BKC) 1 TABLET PO (08:28)
[2024-11-16] MEDS: METOPROLOL SUCCINATE EXT REL 25 MG TABCR PO (08:28)
[2024-11-16] MEDS: FLECAINIDE ACETATE 100 MG TABLET PO ×2 (08:29→21:03)
[2024-11-16] MEDS: oxyCODONE/ACETAMINOPHEN (*CRX) 5-325 MG TABLET 1 TABLET PO ×2 (08:38→21:08)
[2024-11-16] MEDS: oxyCODONE HCL (*CRX) 2.5 MG TAB IR PO ×2 (08:39→21:09)
--- NOTE | 2024-11-16 11:48 | ECG_ITS ---
Test Date: 2024-11-16 11:50:32 Measurements Intervals [place] Rate: 147 P: -1 DC: 149 QRS: 156 QRSD: 216 T: 5 QT: 363 QTc: 569 Interpretive Statements SINUS TACHYCARDIA, POSSIBLE ATRIAL FLUTTER MARKED RIGHT AXIS DEVIATION [QRS AXIS > 100] INTRAVENTRICULAR CONDUCTION DELAY MARKED ST DEPRESSION, CONSIDER SUBENDOCARDIAL INJURY [0.2+ mV ST DEPRESSION] WARNING: DATA QUALITY MAY AFFECT INTERPRETATION Compared to ECG 11/14/2024 17:28:12 Right-axis deviation now present ST (T wave) deviation now present Sinus rhythm no longer present Indeterminate axis no longer present Electronically Signed On 11-17-2024 15:55:58 CDT by David Jerez M.D.
[2024-11-16] MEDS: METOPROLOL TARTRATE INJ 5 MG/5 ML VIAL IV PUSH (11:50)
--- NOTE | 2024-11-16 11:51 | ECG_ITS ---
Test Date: 2024-11-16 11:51:34 Measurements Intervals [place] Rate: 102 P: 0 DC: 0 QRS: 127 QRSD: 217 T: 14 QT: 363 QTc: 475 Interpretive Statements ATRIAL FIBRILLATION WITH RAPID VENTRICULAR RESPONSE MARKED RIGHT AXIS DEVIATION [QRS AXIS > 100] RIGHT BUNDLE BRANCH BLOCK [120+ ms QRS DURATION, UPRIGHT V1, 40+ ms S IN I/aVL/V4/V5/V6] ST DEPRESSION, CONSIDER SUBENDOCARDIAL INJURY [0.1+ mV ST DEPRESSION] Compared to ECG 11/16/2024 11:50:32 No significant changes Electronically Signed On 11-17-2024 15:56:20 CDT by David Jerez M.D.
[2024-11-16 12:33] LABS: Anion Gap 12 mmol/L (4-12); Blood Urea Nitrogen 19 mg/dL (9-20); Calcium 9.8 mg/dL (8.4-10.2); Carbon Dioxide 25 mmol/L (22-30); Chloride 101 mmol/L (98-107); Estimated CRCL calculation 109 ml/min; Estimated Glomerular Filt Rate > 60; Glucose 102 mg/dL (65-110); Potassium 3.3 mmol/L (3.4-5.0); Sodium 138 mmol/L (137-145)
[2024-11-16 12:42] LABS: Troponin I < 0.012 ng/mL (0.000-0.034)
[2024-11-16] MEDS: POTASSIUM CHLORIDE 20 MEQ ER TABLET 40 MEQ PO (14:11)
--- NOTE | 2024-11-16 18:34 | P.PNCA_ITS ---
Progress Note: A&P Assessment and Plan (1) Hypertension: Code(s): I10 - Essential (primary) hypertension Status: Acute (2) Atrial flutter: Code(s): I48.92 - Unspecified atrial flutter Status: Acute (3) Atrial fibrillation, chronic: Code(s): I48.20 - Chronic atrial fibrillation, unspecified Status: Acute Plan 64-year-old man with paroxysmal atrial flutter/fibrillation and coronary artery disease status post PCI presented with chest pain found to have atrial fibrillation/flutter with rapid ventricular rates Atrial fibrillation -continue Xarelto -hold Toprol and start metoprolol tartrate 50 mg p.o. q.6 -continue flecainide and likely add diltiazem if rates are not controlled tomorrow -if rates are not well controlled tomorrow, will proceed with cardioversion -the ventral in need outpatient EP referral for ablation given that he has had episodes of bradycardia in the past Atrial flutter -patient states that he has not missed any doses of Xarelto has been compliant -he also endorses that he has not had any procedures requiring him to abstain fr om blood thinners for the past year and he has had his Xarelto every evening since arrival -NPO past midnight for cardioversion tomorrow Coronary artery disease status post PCI to RCA -continue aspirin 81 mg p.o. daily and atorvastatin 80 mg every evening Subjective Date/time seen: 11/16/24 18:34 Interval history: Received distressing news this morning after which he has been having palpitations Review of Systems Cardiovascular: Cardiovascular: Reports as per HPI Respiratory: Respiratory: Reports as per HPI Exam Const: General: comfortable Eyes: EOM: EOMs intact bilaterally Neck: Neck: no JVD Resp: Effort & Inspection: normal respiratory effort Auscultation: clear to auscultation bilaterally Cardio: Rate: tachycardic Rhythm: abnormal rhythm Extrem: General: no pedal edema Objective Data Vital Signs Vital Signs: Vital Signs - 24 hr 11/15/24 20:00 11/15/24 20:00 11/15/24 20:00 Temperature 36.8 C Pulse Rate 76 Respiratory Rate 20 Blood Pressure 162/100 H 162/100 H 142/90 H Pulse Oximetry 99 Oxygen Delivery 11/15/24 20:00 11/15/24 20:00 11/15/24 20:43 Temperature Pulse Rate 78 77 Respiratory Rate Blood Pressure 161/97 H Pulse Oximetry Oxygen Delivery 11/15/24 22:00 11/15/24 22:00 11/15/24 23:04 Temperature Pulse Rate 75 75 Respiratory Rate 20 Blood Pressure 160/96 H Pulse Oximetry 98 Oxygen Delivery CPAP 11/16/24 00:00 11/16/24 02:00 11/16/24 03:26 Temperature Pulse Rate 72 72 Respiratory Rate Blood Pressure Pulse Oximetry Oxygen Delivery CPAP 11/16/24 04:00 11/16/24 04:00 11/16/24 06:39 Temperature 36.4 C Pulse Rate 75 75 72 Respiratory Rate 18 Blood Pressure 130/86 Pulse Oximetry 98 Oxygen Delivery 11/16/24 07:50 11/16/24 08:00 11/16/24 08:00 Temperature 36.5 C 37.1 C Pulse Rate 76 83 Respiratory Rate 18 20 Blood Pressure 156/111 H 161/95 H Pulse Oximetry 100 98 Oxygen Delivery Room Air 11/16/24 08:00 11/16/24 08:28 11/16/24 08:29 Temperature Pulse Rate 78 77 77 Respiratory Rate Blood Pressure Pulse Oximetry Oxygen Delivery 11/16/24 10:00 11/16/24 11:35 11/16/24 11:50 Temperature Pulse Rate 76 78 155 H Respiratory Rate Blood Pressure 215/95 H Pulse Oximetry Oxygen Delivery 11/16/24 11:50 11/16/24 12:00 11/16/24 12:00 Temperature 36.9 C Pulse Rate 155 H 77 Respiratory Rate 18 Blood Pressure 180/120 H 169/94 H Pulse Oximetry 100 Oxygen Delivery Room Air 11/16/24 12:00 11/16/24 14:00 11/16/24 15:42 Temperature Pulse Rate 76 80 105 H Respiratory Rate Blood Pressure 151/89 H Pulse Oximetry 99 Oxygen Delivery 11/16/24 15:43 11/16/24 16:00 11/16/24 16:00 Temperature 37.1 C Pulse Rate 83 88 Respiratory Rate 20 Blood Pressure 161/95 H Pulse Oximetry 98 Oxygen Delivery Room Air 11/16/24 18:00 Temperature Pulse Rate 104 H Respiratory Rate Blood Pressure Pulse Oximetry Oxygen Delivery Intake/Output Intake/Output: Intake & Output 11/13/24 11/14/24 11/15/24 11/16/24 23:59 23:59 23:59 23:59 Intake Total 1000 1860 1440 Output Total 1100 450 Balance 1000 760 990 Meds/Results Medications: Active Medications Generic Name Dose Route Start Last Admin Trade Name Evaristo PRN Reason Stop Dose Admin Acetaminophen 650 mg 11/14/24 21:04 Acetaminophen 325 Mg Tablet PO Q6H PRN Mild Pain (1-3) or Fever Aspirin 81 mg 11/15/24 09:00 11/16/24 08:27 Aspirin 81 Mg Enteric Tablet PO 81 mg QAM JESSIKA Administration Atorvastatin Calcium 80 mg 11/14/24 21:20 11/15/24 20:38 Atorvastatin 40 Mg Tablet PO 80 mg HS JESSIKA Administration Dextrose 12.5 gm 11/14/24 21:04 Dextrose 50% 25 Gm/50 Ml Syringe IV PUSH PRN PRN Hypoglycemia Protocol Flecainide Acetate 100 mg 11/14/24 21:05 11/16/24 08:29 Flecainide Acetate 100 Mg Tablet PO 100 mg Q12HR JESSIKA Administration Glucagon 1 mg 11/14/24 21:04 Glucagon For Inj 1 Mg Vial IM PRN PRN Hypoglycemia Protocol Glucose 15 gm 11/14/24 21:04 Glucose Oral Gel 15 Gm Of Glucse In 37.5 Gm Tube PO PRN PRN Hypoglycemia Protocol Hydralazine HCl 10 mg 11/15/24 15:57 11/15/24 22:46 Hydralazine 10 Mg Tablet PO 10 mg QID PRN Administration Blood Pressure - High Hydrochlorothiazide 25 mg 11/15/24 09:00 11/16/24 08:27 Hydrochlorothiazide 25 Mg Tablet PO 25 mg QAM JESSIKA Administration Dextrose 1,000 mls @ 100 mls/hr 11/14/24 21:04 Dextrose 5% 1,000 Ml IVPB PRN PRN Hypoglycemia Protocol Insulin Aspart 3 - 6 units 11/15/24 08:00 11/16/24 17:47 Insulin Aspart (*Bkc) 100 Units/Ml SUB-Q Not Given TIDWM JESSIKA Protocol Insulin Aspart 1 - 3 units 11/15/24 21:00 11/15/24 20:07 Insulin Aspart (*Bkc) 100 Units/Ml SUB-Q Not Given HS JESSIKA Protocol Losartan Potassium 100 mg 11/15/24 09:00 11/16/24 08:27 Losartan Potassium 100 Mg Tablet PO 100 mg DAILY JESSIKA Administration Metformin HCl 1,000 mg 11/16/24 09:00 11/16/24 08:27 Metformin Hcl 500 Mg Tablet PO 1,000 mg DAILY JESSIKA Administration Metformin HCl 500 mg 11/15/24 18:00 11/16/24 17:49 Metformin Hcl 500 Mg Tablet PO 500 mg EVENING JESSIKA Administration Metoprolol Succinate 25 mg 11/15/24 09:00 11/16/24 08:28 Metoprolol Succinate Ext Rel 25 Mg Tabcr PO 25 mg QAM JESSIKA Administration Metoprolol Tartrate 50 mg 11/16/24 18:35 Metoprolol Tartrate 50 Mg Tab PO Q6H JESSIKA Multivitamins Therapeutic 1 tablet 11/15/24 09:00 11/16/24 08:28 Multivitamins Therapeutic Tab (*Bkc) PO 1 tablet DAILY JESSIKA Administration Nitroglycerin 0.4 mg 11/14/24 21:04 Nitroglycerin Sl 0.4 Mg Tablet SUBLINGUAL Q5M PRN Angina Oxycodone HCl 2.5 mg 11/14/24 21:26 11/16/24 08:39 Oxycodone Hcl (*Crx) 2.5 Mg Tab Ir PO 2.5 mg TID PRN Administration Pain Rated 7-10 Oxycodone/Acetaminophen 1 tablet 11/14/24 21:20 11/16/24 08:38 Oxycodone/Acetaminophen (*Crx) 5-325 Mg Tablet PO 1 tablet TID PRN Administration Pain Rated 7-10 Perflutren Lipid Microsphere 0 ml 11/15/24 08:32 Perflutren Lipid Microspheres 1.5 Ml Vial Diluted To 10 Ml Total Volume IV PUSH 11/18/24 08:32 ONCE PRN adequate visualization Protocol Rivaroxaban 20 mg 11/14/24 21:20 11/15/24 20:38 Rivaroxaban 20 Mg Tablet PO 20 mg HS JESSIKA Administration Tizanidine HCl 6 mg 11/14/24 21:20 11/15/24 20:38 Tizanidine Hcl 2 Mg Tablet PO 6 mg HS JESSIKA Administration Radiology Results: ITS Impressions Chest X-Ray 11/14/24 15:02 IMPRESSION: No acute cardiopulmonary process. Labs Labs: Laboratory Results - last 24 hr 11/15/24 11/16/24 11/16/24 19:45 03:48 07:21 WBC 7.6 RBC 5.47 Hgb 15.6 Hct 48.5 MCV 88.7 MCH 28.5 MCHC 32.2 RDW 15.9 H Plt Count 201 MPV 10.9 H Sodium Potassium Chloride Carbon Dioxide Anion Gap BUN Creatinine Estim Creat Clear Calc Estimated GFR Glucose POC Capillary Glucose 114 H 96 Calcium Magnesium 1.8 Troponin I 11/16/24 11/16/24 11/16/24 11:58 11:59 16:26 WBC RBC Hgb Hct MCV MCH MCHC RDW Plt Count MPV Sodium 138 Potassium 3.3 L Chloride 101 Carbon Dioxide 25 Anion Gap 12 BUN 19 Creatinine 0.99 Estim Creat Clear Calc 109 Estimated GFR > 60 Glucose 102 POC Capillary Glucose 103 107 H Calcium 9.8 Magnesium Troponin I < 0.012
--- NOTE | 2024-11-16 18:49 | P.PNIM_ITS ---
Progress Note: A&P Assessment and Plan (1) Atrial fibrillation with rapid ventricular response: Code(s): I48.91 - Unspecified atrial fibrillation Status: Inactive (2) Chest pain: Code(s): R07.9 - Chest pain, unspecified Status: Acute (3) Diastolic dysfunction: Code(s): I51.89 - Other ill-defined heart diseases Status: Acute (4) Coronary artery disease: Code(s): I25.10 - Atherosclerotic heart disease of [place] coronary artery without angina pectoris Status: Acute (5) Hypertension: Code(s): I10 - Essential (primary) hypertension Status: Acute (6) Type 2 diabetes mellitus: Code(s): E11.9 - Type 2 diabetes mellitus without complications Status: Acute Plan The patient presented to the emergency department for evaluation of chest pressure as detailed in HPI. Labs, imaging, EKG, and all reports were personally reviewed. He arrived to the emergency department in rapid atrial fibrillation and had return of sinus rhythm after receiving metoprolol tartrate 5 mg IV x1. Upon checking orthostatic vital signs however his heart rate shot back up into the 130 to 150s in rapid atrial fibrillation however he is now rate controlled with rest. Continue flecainide and Xarelto for stroke prophylaxis. Chest pressure may be related to the rapid atrial fibrillation and he is without discomfort at this time. Given his history of coronary artery disease however he is being admitted for close monitoring and Cardiology consultation. Continue new aspirin and statin. He is complaining of feelings of lightheadedness and dizziness with standing and bending over and BUN is greater than 2 times that of his creatinine arguing that he may be a bit dry. He was started on Ozempic a couple of weeks ago and admits that he is perhaps not drinking as much as he used to. He will be judiciously hydrated overnight. Blood pressures have been stable and will be monitored. Initiate sliding scale insulin, Accu-Cheks, and hypoglycemic protocol. His home medications will be reviewed and resumed as appropriate. Findings and treatment plan were discussed with the patient. Questions were solicited and answered to satisfaction. The patient's medical management will be taken over by the hospitalist team in a.m. patient is morbidly obese and with history of Sleep apnea stats he is using his CPAP, he has history of CAD and atrial fib with flutter, he is on flecainide and still has atrial flutter, he he was given lopressor IV and converted to NSR and was feeling well, patient was seen by monitor worker and ordered echo, showed 1. Left ventricular chamber dimension is normal. 2. Left ventricular systolic function is normal, estimated at 55-60. 3. There is mildly increased left ventricular wall thickness. 4. The left ventricular diastolic function is grade II diastolic dysfunction. 5. Left atrial chamber dimension is moderately enlarged. 6. Right atrial chamber dimension is mildly enlarged. 7. There is mild aortic valve regurgitation. 8. There is mild aortic valve sclerosis. 9. There is mild mitral valve regurgitation. 10. The mitral valve has a calcified annulus. 11. There is mild tricuspid valve regurgitation. 12. The aortic root size at the sinus of Valsalva is mildly dilated. patient clinical symptoms have improved, patient will be seen by his monitor worker and further recommendation to follow. Subjective Date/time seen: 11/16/24 18:49 Interval history: Narrative: This is a very pleasant 64-year-old male with history of coronary artery disease status post right coronary artery intervention 2016, paroxysmal atrial fibrillation and history of atrial flutter on flecainide and rivaroxaban for anticoagulation, hypertension, type 2 diabetes mellitus, deep venous thrombosis, and morbid obesity presented to the emergency department via private vehicle with complaints of chest pain. The last couple of days he has not been feeling like himself and reports that he has been getting lightheaded and dizzy when bending over and on occasion when going from sitting to standing. He has also been sweating more than usual and he was awakened from sleep last night with sweats which is unusual. Yesterday he was outside doing some work in the yard and that seemed to exacerbate those symptoms. He took it easy today and simply while sitting down he developed pressure in the mid chest described as feeling as though an elephant was sitting on the chest. He felt a bit breathless with that as well with mild sweats. He took nitroglycerin at about 14:00 with some improvement and he came in for evaluation. He is without chest pressure at the time my evaluation. He denies sensations of racing heart and palpitations at this time however on arrival he was in rapid atrial fibrillation though that has improved with metoprolol. He has not missed any doses of his medications. He denies syncope, vertigo, focal weakness, paresthesias, pleuritic pain, orthopnea, lower extremity edema, calf pain, and vomiting. Of note, he was started on Ozempic couple of weeks ago and seems to be tolerating that well however he when be surprised if he was a bit dehydrated as he does not seem to be drinking as much. He denies recent episodes of hypoglycemia. In the ED: Vital signs on arrival include a temperature of 98.5?, blood pressure 120/93, pulse 151, respiratory rate 18, SpO2 98% on room air. EKG showed suspected rapid atrial fibrillation with right bundle branch block and diffuse ST depressions. He was given metoprolol 5 mg IV and initially converted back to a sinus rhythm however when he stood up for orthostatic vital signs, his heart rate jumped back up to the 150s, again in atrial fibrillation. With a few minutes rest his heart rate improved to the 80s, still in AFib. CMP and CBC were pretty unremarkable although BUN was a bit elevated 28. Initial troponin was normal as was his TSH. He was started on lactated Ringer's and is being admitted in this setting for close monitoring and Cardiology consultation given chest pressure and rapid atrial fibrillation. patient is morbidly obese and with history of Sleep apnea stats he is using his CPAP, he has history of CAD and atrial fib with flutter, he is on flecainide and still has atrial flutter, he he was given lopressor IV and converted to NSR and was feeling well, patient was seen by monitor worker and ordered echo, showed 1. Left ventricular chamber dimension is normal. 2. Left ventricular systolic function is normal, estimated at 55-60. 3. There is mildly increased left ventricular wall thickness. 4. The left ventricular diastolic function is grade II diastolic dysfunction. 5. Left atrial chamber dimension is moderately enlarged. 6. Right atrial chamber dimension is mildly enlarged. 7. There is mild aortic valve regurgitation. 8. There is mild aortic valve sclerosis. 9. There is mild mitral valve regurgitation. 10. The mitral valve has a calcified annulus. 11. There is mild tricuspid valve regurgitation. 12. The aortic root size at the sinus of Valsalva is mildly dilated. patient clinicall symptoms have improved, patient will be seen by his monitor worker and further recommendation to follow. Review of Systems Review of Systems: 12 systems were reviewed and are negativ e except for as per HPI. Exam Narrative: Morbidly obese Patient is comfortable, NAD HEENT: eyes are clear and none icteric LUNGS:CTA HEART: RR S1S2 ABD: BS+, Soft and nontender Lower extremities: no edema SKIN: nonjaundiced Neuro: grossly intact. Objective Data Vital Signs Vital Signs: Vital Signs - 24 hr 11/15/24 20:00 11/15/24 20:00 11/15/24 20:00 Temperature 36.8 C Pulse Rate 76 Respiratory Rate 20 Blood Pressure 162/100 H 162/100 H 142/90 H Pulse Oximetry 99 Oxygen Delivery 11/15/24 20:00 11/15/24 20:00 11/15/24 20:43 Temperature Pulse Rate 78 77 Respiratory Rate Blood Pressure 161/97 H Pulse Oximetry Oxygen Delivery 11/15/24 22:00 11/15/24 22:00 11/15/24 23:04 Temperature Pulse Rate 75 75 Respiratory Rate 20 Blood Pressure 160/96 H Pulse Oximetry 98 Oxygen Delivery CPAP 11/16/24 00:00 11/16/24 02:00 11/16/24 03:26 Temperature Pulse Rate 72 72 Respiratory Rate Blood Pressure Pulse Oximetry Oxygen Delivery CPAP 11/16/24 04:00 11/16/24 04:00 11/16/24 06:39 Temperature 36.4 C Pulse Rate 75 75 72 Respiratory Rate 18 Blood Pressure 130/86 Pulse Oximetry 98 Oxygen Delivery 11/16/24 07:50 11/16/24 08:00 11/16/24 08:00 Temperature 36.5 C 37.1 C Pulse Rate 76 83 Respiratory Rate 18 20 Blood Pressure 156/111 H 161/95 H Pulse Oximetry 100 98 Oxygen Delivery Room Air 11/16/24 08:00 11/16/24 08:28 11/16/24 08:29 Temperature Pulse Rate 78 77 77 Respiratory Rate Blood Pressure Pulse Oximetry Oxygen Delivery 11/16/24 10:00 11/16/24 11:35 11/16/24 11:50 Temperature Pulse Rate 76 78 155 H Respiratory Rate Blood Pressure 215/95 H Pulse Oximetry Oxygen Delivery 11/16/24 11:50 11/16/24 12:00 11/16/24 12:00 Temperature 36.9 C Pulse Rate 155 H 77 Respiratory Rate 18 Blood Pressure 180/120 H 169/94 H Pulse Oximetry 100 Oxygen Delivery Room Air 11/16/24 12:00 11/16/24 14:00 11/16/24 15:42 Temperature Pulse Rate 76 80 105 H Respiratory Rate Blood Pressure 151/89 H Pulse Oximetry 99 Oxygen Delivery 11/16/24 15:43 11/16/24 16:00 11/16/24 16:00 Temperature 37.1 C Pulse Rate 83 88 Respiratory Rate 20 Blood Pressure 161/95 H Pulse Oximetry 98 Oxygen Delivery Room Air 11/16/24 18:00 Temperature Pulse Rate 104 H Respiratory Rate Blood Pressure Pulse Oximetry Oxygen Delivery Intake/Output Intake/Output: Intake & Output 11/13/24 11/14/24 11/15/24 11/16/24 23:59 23:59 23:59 23:59 Intake Total 1000 1860 1440 Output Total 1100 450 Balance 1000 760 990 Meds/Results Medications: Active Medications Generic Name Dose Route Start Last Admin Trade Name Freq PRN Reason Stop Dose Admin Acetaminophen 650 mg 11/14/24 21:04 Acetaminophen 325 Mg Tablet PO Q6H PRN Mild Pain (1-3) or Fever Aspirin 81 mg 11/15/24 09:00 11/16/24 08:27 Aspirin 81 Mg Enteric Tablet PO 81 mg QAM JESSIKA Administration Atorvastatin Calcium 80 mg 11/14/24 21:20 11/15/24 20:38 Atorvastatin 40 Mg Tablet PO 80 mg HS JESSIKA Administration Dextrose 12.5 gm 11/14/24 21:04 Dextrose 50% 25 Gm/50 Ml Syringe IV PUSH PRN PRN Hypoglycemia Protocol Flecainide Acetate 100 mg 11/14/24 21:05 11/16/24 08:29 Flecainide Acetate 100 Mg Tablet PO 100 mg Q12HR JESSIKA Administration Glucagon 1 mg 11/14/24 21:04 Glucagon For Inj 1 Mg Vial IM PRN PRN Hypoglycemia Protocol Glucose 15 gm 11/14/24 21:04 Glucose Oral Gel 15 Gm Of Glucse In 37.5 Gm Tube PO PRN PRN Hypoglycemia Protocol Hydralazine HCl 10 mg 11/15/24 15:57 11/15/24 22:46 Hydralazine 10 Mg Tablet PO 10 mg QID PRN Administration Blood Pressure - High Hydrochlorothiazide 25 mg 11/15/24 09:00 11/16/24 08:27 Hydrochlorothiazide 25 Mg Tablet PO 25 mg QAM JESSIKA Administration Dextrose 1,000 mls @ 100 mls/hr 11/14/24 21:04 Dextrose 5% 1,000 Ml IVPB PRN PRN Hypoglycemia Protocol Insulin Aspart 3 - 6 units 11/15/24 08:00 11/16/24 17:47 Insulin Aspart (*Bkc) 100 Units/Ml SUB-Q Not Given TIDWM JESSIKA Protocol Insulin Aspart 1 - 3 units 11/15/24 21:00 11/15/24 20:07 Insulin Aspart (*Bkc) 100 Units/Ml SUB-Q Not Given HS JESSIKA Protocol Losartan Potassium 100 mg 11/15/24 09:00 11/16/24 08:27 Losartan Potassium 100 Mg Tablet PO 100 mg DAILY JESSIKA Administration Metformin HCl 1,000 mg 11/16/24 09:00 11/16/24 08:27 Metformin Hcl 500 Mg Tablet PO 1,000 mg DAILY JESSIKA Administration Metformin HCl 500 mg 11/15/24 18:00 11/16/24 17:49 Metformin Hcl 500 Mg Tablet PO 500 mg EVENING JESSIKA Administration Metoprolol Succinate 25 mg 11/15/24 09:00 11/16/24 08:28 Metoprolol Succinate Ext Rel 25 Mg Tabcr PO 25 mg QAM JESSIKA Administration Metoprolol Tartrate 50 mg 11/16/24 18:35 Metoprolol Tartrate 50 Mg Tab PO Q6HR [facility] Multivitamins Therapeutic 1 tablet 11/15/24 09:00 11/16/24 08:28 Multivitamins Therapeutic Tab (*Bkc) PO 1 tablet DAILY JESSIKA Administration Nitroglycerin 0.4 mg 11/14/24 21:04 Nitroglycerin Sl 0.4 Mg Tablet SUBLINGUAL Q5M PRN Angina Oxycodone HCl 2.5 mg 11/14/24 21:26 11/16/24 08:39 Oxycodone Hcl (*Crx) 2.5 Mg Tab Ir PO 2.5 mg TID PRN Administration Pain Rated 7-10 Oxycodone/Acetaminophen 1 tablet 11/14/24 21:20 11/16/24 08:38 Oxycodone/Acetaminophen (*Crx) 5-325 Mg Tablet PO 1 tablet TID PRN Administration Pain Rated 7-10 Perflutren Lipid Microsphere 0 ml 11/15/24 08:32 Perflutren Lipid Microspheres 1.5 Ml Vial Diluted To 10 Ml Total Volume IV PUSH 11/18/24 08:32 ONCE PRN adequate visualization Protocol Rivaroxaban 20 mg 11/14/24 21:20 11/15/24 20:38 Rivaroxaban 20 Mg Tablet PO 20 mg HS JESSIKA Administration Tizanidine HCl 6 mg 11/14/24 21:20 11/15/24 20:38 Tizanidine Hcl 2 Mg Tablet PO 6 mg HS JESSIKA Administration Radiology Results: ITS Impressions Chest X-Ray 11/14/24 15:02 IMPRESSION: No acute cardiopulmonary process. Labs Labs: Laboratory Results - last 24 hr 11/15/24 11/16/24 11/16/24 19:45 03:48 07:21 WBC 7.6 RBC 5.47 Hgb 15.6 Hct 48.5 MCV 88.7 MCH 28.5 MCHC 32.2 RDW 15.9 H Plt Count 201 MPV 10.9 H Sodium Potassium Chloride Carbon Dioxide Anion Gap BUN Creatinine Estim Creat Clear Calc Estimated GFR Glucose POC Capillary Glucose 114 H 96 Calcium Magnesium 1.8 Troponin I 11/16/24 11/16/24 11/16/24 11:58 11:59 16:26 WBC RBC Hgb Hct MCV MCH MCHC RDW Plt Count MPV Sodium 138 Potassium 3.3 L Chloride 101 Carbon Dioxide 25 Anion Gap 12 BUN 19 Creatinine 0.99 Estim Creat Clear Calc 109 Estimated GFR > 60 Glucose 102 POC Capillary Glucose 103 107 H Calcium 9.8 Magnesium Troponin I < 0.012 Quality VTE Prophylaxis VTE prophylaxis: pharmacologic ordered (On Xarelto)
[2024-11-16] MEDS: METOPROLOL TARTRATE 50 MG TAB PO (19:00)
[2024-11-16] MEDS: RIVAROXABAN 20 MG TABLET PO (21:03)
[2024-11-16] MEDS: ATORVASTATIN 40 MG TABLET 80 MG PO (21:03)
[2024-11-16] MEDS: TIZANIDINE HCL 2 MG TABLET 6 MG PO (21:03)
[2024-11-17] VITALS (16 sets, daily range): BP systolic 126–159; BP diastolic 68–115; PULSE 59–75; RESP 18–20; TEMP 36.6–36.8; O2SAT 95–100
[2024-11-17] MEDS: METOPROLOL TARTRATE 50 MG TAB PO ×2 (00:16→06:23)
[2024-11-17 04:40] LABS: Hematocrit 53.9 % (42.0-52.0); Hemoglobin 17.4 g/dL (14.0-18.0); Mean Corpuscular HGB Conc 32.3 g/dl (32-36); Mean Corpuscular Hemoglobin 28.6 pg (26-34); Mean Corpuscular Volume 88.5 fl (80-100); Platelet Count Result 251 k/mm3 (150-375); Red Blood Count 6.09 M/mm3 (4.6-6.20); White Blood Count 8.8 K/mm3 (4.5-10.0)
[2024-11-17 05:00] LABS: Magnesium 2.0 mg/dL (1.6-2.3)
[2024-11-17] MEDS: FLECAINIDE ACETATE 100 MG TABLET PO (08:54)
[2024-11-17] MEDS: ASPIRIN 81 MG ENTERIC TABLET PO (08:55)
[2024-11-17] MEDS: MULTIVITAMINS THERAPEUTIC TAB (*BKC) 1 TABLET PO (08:55)
[2024-11-17] MEDS: LOSARTAN POTASSIUM 100 MG TABLET PO (08:55)
[2024-11-17] MEDS: oxyCODONE HCL (*CRX) 2.5 MG TAB IR PO (09:00)
[2024-11-17] MEDS: oxyCODONE/ACETAMINOPHEN (*CRX) 5-325 MG TABLET 1 TABLET PO (09:01)
--- NOTE | 2024-11-17 10:27 | ECG_ITS ---
Test Date: 2024-11-17 10:48:49 Measurements Intervals [place] Rate: 71 P: -15 RI: 282 QRS: 26 QRSD: 164 T: 0 QT: 264 QTc: 288 Interpretive Statements SINUS RHYTHM WITH FIRST DEGREE AV BLOCK RIGHT BUNDLE BRANCH BLOCK [120+ ms QRS DURATION, UPRIGHT V1, 40+ ms S IN I/aVL/V4/V5/V6] Compared to ECG 11/16/2024 11:51:34 First degree AV block now present Atrial fibrillation no longer present Right-axis deviation no longer present ST (T wave) deviation no longer present Electronically Signed On 11-18-2024 18:34:53 CDT by David Jerez M.D.
--- NOTE | 2024-11-17 11:44 | P.PNCA_ITS ---
Progress Note: A&P Assessment and Plan (1) Atrial flutter: Code(s): I48.92 - Unspecified atrial flutter Status: Acute (2) Atrial fibrillation, chronic: Code(s): I48.20 - Chronic atrial fibrillation, unspecified Status: Acute (3) Hyperlipidemia: Code(s): E78.5 - Hyperlipidemia, unspecified Status: Acute (4) Coronary artery disease: Code(s): I25.10 - Atherosclerotic heart disease of [place] coronary artery without angina pectoris Status: Acute Plan 64-year-old man with paroxysmal atrial flutter/fibrillation and coronary artery disease status post PCI presented with chest pain found to have atrial fibrillation/flutter with rapid ventricular rates Atrial fibrillation -continue Xarelto -it would appear that with increased dose of metoprolol tartrate, he has better rate control as well as brief periods of sinus rhythm -during preparation for cardioversion, EKG was performed showing sinus rhythm and thus we will consolidate his metoprolol to 200 mg p.o. daily -continue flecainide and EP referral has been ordered Atrial flutter -continue Xarelto, metoprolol, flecainide -outpatient EP referral for ablation Coronary artery disease status post PCI to RCA -continue aspirin 81 mg p.o. daily and atorvastatin 80 mg every evening No further inpatient cardiac workup warranted at this time. Patient follow-up outpatient. Subjective Date/time seen: 11/17/24 11:44 Interval history: No further palpitations today. Overnight for the majority of the time he is in atrial fibrillation however there are times when he has brief periods of sinus rhythm. Review of Systems Cardiovascular: Cardiovascular: Reports as per HPI Respiratory: Respiratory: Reports as per HPI Exam Const: General: comfortable HENMT: Mouth: Yes moist mucous membranes Eyes: EOM: EOMs intact bilaterally Neck: Neck: no JVD Resp: Effort & Inspection: normal respiratory effort Auscultation: clear to auscultation bilaterally Cardio: Rate: regular rate Rhythm: abnormal rhythm GI: Inspection: distended Extrem: General: no pedal edema Objective Data Vital Signs Vital Signs: Vital Signs - 24 hr 11/16/24 11:50 11/16/24 11:50 11/16/24 12:00 Temperature 36.9 C Pulse Rate 155 H 155 H 77 Respiratory Rate 18 Blood Pressure 180/120 H 169/94 H Pulse Oximetry 100 Oxygen Delivery Fraction of Inspired Oxygen 11/16/24 12:00 11/16/24 12:00 11/16/24 14:00 Temperature Pulse Rate 76 80 Respiratory Rate Blood Pressure Pulse Oximetry Oxygen Delivery Room Air Fraction of Inspired Oxygen 11/16/24 15:42 11/16/24 15:43 11/16/24 16:00 Temperature 37.1 C Pulse Rate 105 H 83 88 Respiratory Rate 20 Blood Pressure 151/89 H 161/95 H Pulse Oximetry 99 98 Oxygen Delivery Fraction of Inspired Oxygen 11/16/24 16:00 11/16/24 18:00 11/16/24 19:00 Temperature Pulse Rate 104 H 120 H Respiratory Rate Blood Pressure Pulse Oximetry Oxygen Delivery Room Air Fraction of Inspired Oxygen 11/16/24 20:00 11/16/24 20:00 11/16/24 20:00 Temperature 37.0 C Pulse Rate 97 Respiratory Rate 20 Blood Pressure 152/91 H 152/91 H 151/97 H Pulse Oximetry 97 Oxygen Delivery Fraction of Inspired Oxygen 11/16/24 20:00 11/16/24 20:00 11/16/24 20:30 Temperature Pulse Rate 98 97 Respiratory Rate 20 Blood Pressure 110/97 H Pulse Oximetry 97 Oxygen Delivery Room Air Fraction of Inspired Oxygen 11/16/24 21:03 11/16/24 22:00 11/17/24 00:00 Temperature 36.6 C Pulse Rate 78 76 72 Respiratory Rate 20 Blood Pressure 126/68 Pulse Oximetry 100 Oxygen Delivery Fraction of Inspired Oxygen 11/17/24 00:00 11/17/24 00:05 11/17/24 00:16 Temperature Pulse Rate 73 72 67 Respiratory Rate 20 Blood Pressure Pulse Oximetry 100 Oxygen Delivery CPAP Fraction of Inspired Oxygen 11/17/24 02:00 11/17/24 04:00 11/17/24 04:00 Temperature 36.6 C Pulse Rate 59 L 62 62 Respiratory Rate 18 Blood Pressure 141/84 H Pulse Oximetry 99 Oxygen Delivery Fraction of Inspired Oxygen 11/17/24 04:10 11/17/24 06:00 11/17/24 06:23 Temperature Pulse Rate 62 72 74 Respiratory Rate 18 Blood Pressure Pulse Oximetry 99 Oxygen Delivery CPAP Fraction of Inspired Oxygen 11/17/24 07:59 11/17/24 08:00 11/17/24 08:00 Temperature 36.8 C 36.6 C Pulse Rate 75 73 62 Respiratory Rate 20 20 Blood Pressure 156/99 H 157/99 H Pulse Oximetry 100 99 Oxygen Delivery Fraction of Inspired Oxygen 11/17/24 08:54 11/17/24 09:25 11/17/24 09:26 Temperature Pulse Rate 70 71 65 Respiratory Rate Blood Pressure 156/102 H 159/115 H Pulse Oximetry 99 97 Oxygen Delivery Fraction of Inspired Oxygen 11/17/24 10:00 Temperature Pulse Rate 72 Respiratory Rate Blood Pressure Pulse Oximetry Oxygen Delivery Fraction of Inspired Oxygen Intake/Output Intake/Output: Intake & Output 11/14/24 11/15/24 11/16/24 11/17/24 23:59 23:59 23:59 23:59 Intake Total 1000 1860 1440 400 Output Total 1100 670 340 Balance 1000 760 770 60 Meds/Results Medications: Active Medications Generic Name Dose Route Start Last Admin Trade Name Freq PRN Reason Stop Dose Admin Acetaminophen 650 mg 11/14/24 21:04 Acetaminophen 325 Mg Tablet PO Q6H PRN Mild Pain (1-3) or Fever Aspirin 81 mg 11/15/24 09:00 11/17/24 08:55 Aspirin 81 Mg Enteric Tablet PO 81 mg QAM JESSIKA Administration Atorvastatin Calcium 80 mg 11/14/24 21:20 11/16/24 21:03 Atorvastatin 40 Mg Tablet PO 80 mg HS JESSIKA Administration Dextrose 12.5 gm 11/14/24 21:04 Dextrose 50% 25 Gm/50 Ml Syringe IV PUSH PRN PRN Hypoglycemia Protocol Flecainide Acetate 100 mg 11/14/24 21:05 11/17/24 08:54 Flecainide Acetate 100 Mg Tablet PO 100 mg Q12HR JESSIKA Administration Glucagon 1 mg 11/14/24 21:04 Glucagon For Inj 1 Mg Vial IM PRN PRN Hypoglycemia Protocol Glucose 15 gm 11/14/24 21:04 Glucose Oral Gel 15 Gm Of Glucse In 37.5 Gm Tube PO PRN PRN Hypoglycemia Protocol Hydralazine HCl 10 mg 11/15/24 15:57 11/15/24 22:46 Hydralazine 10 Mg Tablet PO 10 mg QID PRN Administration Blood Pressure - High Hydrochlorothiazide 25 mg 11/15/24 09:00 11/17/24 08:55 Hydrochlorothiazide 25 Mg Tablet PO 25 mg QAM JESSIKA Administration Dextrose 1,000 mls @ 100 mls/hr 11/14/24 21:04 Dextrose 5% 1,000 Ml IVPB PRN PRN Hypoglycemia Protocol Insulin Aspart 3 - 6 units 11/15/24 08:00 11/17/24 08:21 Insulin Aspart (*Bkc) 100 Units/Ml SUB-Q Not Given TIDWM JESSIKA Protocol Insulin Aspart 1 - 3 units 11/15/24 21:00 11/16/24 21:04 Insulin Aspart (*Bkc) 100 Units/Ml SUB-Q Not Given HS JESSIKA Protocol Losartan Potassium 100 mg 11/15/24 09:00 11/17/24 08:55 Losartan Potassium 100 Mg Tablet PO 100 mg DAILY JESSIKA Administration Metformin HCl 1,000 mg 11/16/24 09:00 11/17/24 08:55 Metformin Hcl 500 Mg Tablet PO 1,000 mg DAILY JESSIKA Administration Metformin HCl 500 mg 11/15/24 18:00 11/16/24 17:49 Metformin Hcl 500 Mg Tablet PO 500 mg EVENING JESSIKA Administration Metoprolol Succinate 200 mg 11/17/24 11:10 Metoprolol Succinate Ext Rel 100 Mg Tabcr PO QAM JESSIKA Multivitamins Therapeutic 1 tablet 11/15/24 09:00 11/17/24 08:55 Multivitamins Therapeutic Tab (*Bkc) PO 1 tablet DAILY JESSIKA Administration Nitroglycerin 0.4 mg 11/14/24 21:04 Nitroglycerin Sl 0.4 Mg Tablet SUBLINGUAL Q5M PRN Angina Oxycodone HCl 2.5 mg 11/14/24 21:26 11/17/24 09:00 Oxycodone Hcl (*Crx) 2.5 Mg Tab Ir PO 2.5 mg TID PRN Administration Pain Rated 7-10 Oxycodone/Acetaminophen 1 tablet 11/14/24 21:20 11/17/24 09:01 Oxycodone/Acetaminophen (*Crx) 5-325 Mg Tablet PO 1 tablet TID PRN Administration Pain Rated 7-10 Perflutren Lipid Microsphere 0 ml 11/15/24 08:32 Perflutren Lipid Microspheres 1.5 Ml Vial Diluted To 10 Ml Total Volume IV P [facility] 11/18/24 08:32 ONCE PRN adequate visualization Protocol Rivaroxaban 20 mg 11/14/24 21:20 11/16/24 21:03 Rivaroxaban 20 Mg Tablet PO 20 mg HS JESSIKA Administration Tizanidine HCl 6 mg 11/14/24 21:20 11/16/24 21:03 Tizanidine Hcl 2 Mg Tablet PO 6 mg HS JESSIKA Administration Radiology Results: ITS Impressions Chest X-Ray 11/14/24 15:02 IMPRESSION: No acute cardiopulmonary process. Labs Labs: Laboratory Results - last 24 hr 11/16/24 11/16/24 11/16/24 11:58 11:59 16:26 WBC RBC Hgb Hct MCV MCH MCHC RDW Plt Count MPV Sodium 138 Potassium 3.3 L Chloride 101 Carbon Dioxide 25 Anion Gap 12 BUN 19 Creatinine 0.99 Estim Creat Clear Calc 109 Estimated GFR > 60 Glucose 102 POC Capillary Glucose 103 107 H Calcium 9.8 Magnesium Troponin I < 0.012 11/16/24 11/17/24 11/17/24 19:46 03:57 07:43 WBC 8.8 RBC 6.09 Hgb 17.4 Hct 53.9 H MCV 88.5 MCH 28.6 MCHC 32.3 RDW 17.0 H Plt Count 251 MPV 11.1 H Sodium Potassium Chloride Carbon Dioxide Anion Gap BUN Creatinine Estim Creat Clear Calc Estimated GFR Glucose POC Capillary Glucose 119 H 92 Calcium Magnesium 2.0 Troponin I
[2024-11-17] MEDS: METOPROLOL SUCCINATE EXT REL 100 MG TABCR 200 MG PO (12:36)
--- NOTE | 2024-11-17 13:58 | PM.DS ---
DS: Admitting Diagnosis Discharge Date 11/17/24 Admitting Diagnosis Chest pain. DS: Discharge Diagnosis Discharge Diagnosis (1) Atrial fibrillation with rapid ventricular response: Code(s): I48.91 - Unspecified atrial fibrillation Status: Inactive (2) Chest pain: Code(s): R07.9 - Chest pain, unspecified Status: Acute (3) Diastolic dysfunction: Code(s): I51.89 - Other ill-defined heart diseases Status: Acute (4) Coronary artery disease: Code(s): I25.10 - Atherosclerotic heart disease of [place] coronary artery without angina pectoris Status: Acute (5) Hypertension: Qualifiers: Hypertension type: unspecified Qualified Code(s): I10 - Essential (primary) hypertension Code(s): I10 - Essential (primary) hypertension Status: Acute (6) Type 2 diabetes mellitus: Code(s): E11.9 - Type 2 diabetes mellitus without complications Status: Acute Plan The patient presented to the emergency department for evaluation of chest pressure as detailed in HPI. Labs, imaging, EKG, and all reports were personally reviewed. He arrived to the emergency department in rapid atrial fibrillation and had return of sinus rhythm after receiving metoprolol tartrate 5 mg IV x1. Upon checking orthostatic vital signs however his heart rate shot back up into the 130 to 150s in rapid atrial fibrillation however he is now rate controlled with rest. Continue flecainide and Xarelto for stroke prophylaxis. Chest pressure may be related to the rapid atrial fibrillation and he is without discomfort at this time. Given his history of coronary artery disease however he is being admitted for close monitoring and Cardiology consultation. Continue new aspirin and statin. He is complaining of feelings of lightheadedness and dizziness with standing and bending over and BUN is greater than 2 times that of his creatinine arguing that he may be a bit dry. He was started on Ozempic a couple of weeks ago and admits that he is perhaps not drinking as much as he used to. He will be judiciously hydrated overnight. Blood pressures have been stable and will be monitored. Initiate sliding scale insulin, Accu-Cheks, and hypoglycemic protocol. His home medications will be reviewed and resumed as appropriate. Findings and treatment plan were discussed with the patient. Questions were solicited and answered to satisfaction. The patient's medical management will be taken over by the hospitalist team in a.m. patient is morbidly obese and with history of Sleep apnea stats he is using his CPAP, he has history of CAD and atrial fib with flutter, he is on flecainide and still has atrial flutter, he he was given lopressor IV and converted to NSR and was feeling well, patient was seen by superintendent pressure and ordered echo, showed 1. Left ventricular chamber dimension is normal. 2. Left ventricular systolic function is normal, estimated at 55-60. 3. There is mildly increased left ventricular wall thickness. 4. The left ventricular diastolic function is grade II diastolic dysfunction. 5. Left atrial chamber dimension is moderately enlarged. 6. Right atrial chamber dimension is mildly enlarged. 7. There is mild aortic valve regurgitation. 8. There is mild aortic valve sclerosis. 9. There is mild mitral valve regurgitation. 10. The mitral valve has a calcified annulus. 11. There is mild tricuspid valve regurgitation. 12. The aortic root size at the sinus of Valsalva is mildly dilated. patient clinical symptoms have improved, patient will be seen by his superintendent pressure and further recommendation to follow. DS: Summary Hospital Course Hospital Course: patient presented with atrial fibrillation, was started on increased dose of metoprolol repeat EKG showed patient converted to NSR, patient was by the superintendent pressure recommended to increase dose of metoprolol 200mg qd for the patient and continue Xarelto for anticoagulation, patient is clinically stable, will discharge patient today. Time Spent with Patient Time attestation: Total time spent providing and/or coordinating discharge services: Exam Narrative: Morbidly obese Patient is comfortable, NAD HEENT: eyes are clear and none icteric LUNGS:CTA HEART: RR S1S2 ABD: BS+, Soft and nontender Lower extremities: no edema SKIN: nonjaundiced Neuro: grossly intact. DS: Data Data Completed and Pending Labs on day of discharge: Labs from last 24 hours 11/17/24 11/17/24 11/17/24 11:30 07:43 03:57 WBC 8.8 RBC 6.09 Hgb 17.4 Hct 53.9 H MCV 88.5 MCH 28.6 MCHC 32.3 RDW 17.0 H Plt Count 251 MPV 11.1 H POC Capillary Glucose 101 92 Magnesium 2.0 11/16/24 11/16/24 19:46 16:26 WBC RBC Hgb Hct MCV MCH MCHC RDW Plt Count MPV POC Capillary Glucose 119 H 107 H Magnesium Discharge Plan Discharge Attending physician on discharge: Rohith Zelaya Consulting providers: Werner Patton; David Jerez; Boris Lee; Randi Millard; Domo Almanza Discharging Clinician: Rohith Zelaya Patient Disposition: Home Activity: as tolerated Diet: heart healthy Wound Care Instructions: follow printed instructions Discharge Instructions: Patient to follow discharge care instruction from his superintendent pressure and follow up as scheduled, patient to follow up with his primary care provider as soon as possible, patient is instructed if any symptoms redevelop to go to nearest ER. Patient Instructions: Antibiotic Form, Rivaroxaban (By mouth), A-fib (Atrial Fibrillation) (DC) Patient Language: Bulgarian Stand Alone Forms: General Discharge Information Follow-up/Referrals: Ivan Lafleur MD [Primary Care Provider] - Werner Patton MD [Physician] - Discharge Medications: New metoprolol succinate [Toprol XL] 100 mg Tablet Extended Release 24 Hr 200 mg PO QAM Qty: 30 0RF Continued nitroglycerin 0.4 mg tablet, sublingual 0.4 mg sublingual Q5M PRN (Reason: Angina) Rx Instructions: do not exceed 3 doses per episode multivitamin Tablet 1 tablet PO DAILY oxycodone-acetaminophen 7.5-300 mg tablet 1 tablet PO TID PRN (Reason: pain) Patient Comments: as per pain management aspirin 81 mg Tablet,Delayed Release (Dr/Ec) 81 mg PO QAM 30 Days Qty: 30 0RF tizanidine 4 mg tablet 6 mg PO HS metformin 1,000 mg tablet 1,000 mg PO BID Rx Instructions: 1000 mg in the morning and 500mg at night Xarelto 20 mg tablet 20 mg PO HS losartan-hydrochlorothiazide 100-25 mg tablet See Rx Instructions .ROUTE .COMPLEX Qty: 90 0RF Dose Instruction: TAKE 1 TABLET BY MOUTH DAILY Rx Instructions: TAKE 1 TABLET BY MOUTH DAILY flecainide 100 mg tablet 100 mg PO Q12H nystatin 100,000 unit/gram powder 1 applic topical BID Qty: 30 0RF No Action Mounjaro 2.5 mg/0.5 mL pen injector 2.5 mg subcut WEEKLY Qty: 2 0RF Rx Instructions: for 4 weeks atorvastatin 80 mg tablet 80 mg PO HS Qty: 100 1RF Date of admission: 11/16/24 14:22 Primary Care Provider: Ivan Lafleur Admitting Provider: Rohith Zelaya Attending physician on admission: Rohith Zelaya Condition: Improved
== END 2024-11-17 14:49 | disposition home or self-care (01) | DRG 309 ==
LOC: ANHED 16:01 → ANHIMU 18:42
PROVIDERS: Physician Assistant; Student in an Organized Health Care Education/Training Program; Admitting Provider Family Medicine; Emergency Provider Emergency Medicine; PCP Family Medicine; Visit Provider Family Medicine
DX: I48.20 Chronic atrial fibrillation, unspecified (principal); Z68.43 Body mass index [BMI] 50.0-59.9, adult; I48.92 Unspecified atrial flutter; E66.01 Morbid (severe) obesity due to excess calories; E11.21 Type 2 diabetes mellitus with diabetic nephropathy; G47.33 Obstructive sleep apnea (adult) (pediatric); I11.9 Hypertensive heart disease without heart failure; I25.10 Atherosclerotic heart disease of native coronary artery without angina pectoris; Z79.01 Long term (current) use of anticoagulants; Z79.82 Long term (current) use of aspirin; Z79.84 Long term (current) use of oral hypoglycemic drugs; Z86.718 Personal history of other venous thrombosis and embolism; Z95.5 Presence of coronary angioplasty implant and graft; Z96.652 Presence of left artificial knee joint; Z87.891 Personal history of nicotine dependence
CPT/HCPCS: 36415; 71046; 80048; 80053; 82948; 83036; 83690; 83735; 84443; 84484; 85025; 85027; 85610; 85730; 93005; 94002; 96361; 96374; 96375; 99285; A9270; C8929; G0378; J0360; J0616; J7120; Q9957

== ENCOUNTER 2024-12-04 10:26 | Emergency (ER) | payer MEDICARE, SELFPAY ==
--- NOTE | 2024-12-04 10:31 | ECG_ITS ---
Test Date: 2024-12-04 10:33:25 Measurements Intervals [place] Rate: 73 P: 0 CO: 0 QRS: -64 QRSD: 214 T: 29 QT: 514 QTc: 568 Interpretive Statements ATRIAL FLUTTER/TACHYCARDIA WITH NORMAL VENTRICULAR RESPONSE RIGHT BUNDLE BRANCH BLOCK LEFT ANTERIOR FASCICULAR BLOCK ABNORMAL ECG Compared to ECG 11/17/2024 10:48:49 Sinus rhythm no longer present Electronically Signed On 12-04-2024 10:39:35 CDT by Jamey Gomes D.O.
--- OUTSIDE RECORDS SUMMARY | 2024-12-04 10:35 | XMS_ITS | Clinical Summary ---
Author Organization [address] Address [facility] [place] [address] Care Team Providers Care Neurology Technician Name Role Phone Ivan Lafleur MD [...] mouth 2 (two) times a day Active -ovro-X mfolate-algal 27 mg iron-1.13 mg-581.92 mg capsule Take by mouth Active flecainide (TAMBOCOR) 100 mg tablet TAKE 1 TABLET(100 MG) BY MOUTH TWICE DAILY 60 tablet 2 09/11/2024 Active rivaroxaban (Xarelto) 20 mg tablet Take 1 tablet (20 mg total) by mouth daily with dinner 90 tablet 3 09/25/2024 Active losartan-hydrochl orothiazide (HYZAAR) 100-25 mg per tabletIndications :Essential hypertension TAKE 1 TABLET BY MOUTH DAILY 90 tablet 3 10/24/2024 Active metoprolol XL (TOPROL-XL) 100 mg 24 hr tablet Take 1 tablet (100 mg total) by mouth daily 11/17/2024 Active Mounjaro 2.5 mg/0.5 mL pen injector injection Inject 0.5 mL (2.5 mg total) under the skin 11/20/2024 Active Active Problems Problem Noted Date Diagnosed [...] Encounters Date Type Department Care Team Description 11/30/2024 Telephone [facility] Cardiology [address] [place] [address] [place] [phone] Boris Lee MD 11/28/2024 Telephone [place] [address] [place] [phone] Boris Lee MD [facility] 11/21/2024 10:00 AM CDT Office Visit [place] [address] [place] [phone] Liliana Landrum NP Paroxysmal atrial fibrillation (HCC) (Primary Dx); Paroxysmal atrial flutter (HCC); Hospital discharge follow-up 11/20/2024 Orders Only [facility] Cardiology [address] [place] [address] [place] [phone] David Jerez MD 11/17/2024 Orders Only [facility] Cardiology [address] [place] [address] [place] [phone] Boris Lee MD 11/15/2024 Telephone [facility] Cardiology [address] [place] [address] [place] [phone] Boris Lee MD 09/25/2024 Telephone [facility] Cardiology [address] [place] [address] [place] [phone] Boris Lee MD from Last 3 Months Surgical History Surgery [...] on file 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 Gender Identity Not on file Sexual Orientation Not on file Obstetrics History Last Filed Vital Signs Vital Sign Reading Time Taken Comments Blood Pressure 144/102 11/21/2024 10:06 AM CDT Pulse 51 11/21/2024 10:06 AM CDT Temperature - - Respiratory Rate - - Oxygen Saturation 96% 11/21/2024 10:06 AM CDT Inhaled Oxygen Concentration - - Weight 176 kg (388 lb) 11/21/2024 10:06 AM CDT Height 185.4 cm (6' 1) 11/21/2024 10:06 AM CDT Body Mass Index 51.19 11/21/2024 10:06 AM CDT Plan of Treatment Health Maintenance Due Date Last Done Comments Colon Cancer Screening-Colonoscopy 1959 Depression Screening 1959 Fall Risk Assessment 1959 Hepatitis C Screening 1959 Prostate Cancer Screening-PSA 1959 DTaP/Tdap/Td Vaccine (1 - Tdap) 08/04/1970 Hepatitis B Screening 08/04/1977 Pneumococcal vaccine 65+ (1 of 2 - PCV) 08/04/1978 Zoster Vaccine (1 of 2) 08/04/2009 Abdominal Aortic Aneurysm (AAA) Screen 08/04/2024 Well Visit 65+ 08/04/2024 Influenza Vaccine (#1) 2024 Procedures Procedure Name Priority Date/Time Associated Diagnosis Comments CARDIOLOGY DOCUMENT SCAN Routine 11/17/2024 2:26 PM CDT CARDIOLOGY DOCUMENT SCAN Routine 025 10:30 AM CDT CARDIOLOGY DOCUMENT SCAN Routine 025 10:28 AM CDT from Last 3 Months Results * Cardiology Document Scan (11/17/2024 2:26 PM CDT) Anatomical Region Laterality Modality Other David Jerez MD [facility] CARDIAC SERVICES PROCEDURES F inal Result * Cardiology Document Scan (11/16/2024 10:30 AM CDT) Anatomical Region Laterality Modality Other David Jerez MD CV CARDIAC SERVICES PROCEDURES F inal Result * Cardiology Document Scan (11/15/2024 10:28 AM CDT) Anatomical Region Laterality Modality Other Boris Lee MD CV CARDIAC SERVICES PROC EDURES Final Result from Last 3 Months Insurance [place] Care Teams Neurology Technician Relationship Specialty Start Date End Date Ivan Lafleur MD [address] [facility] [address] [place] [address] PCP - General Family Medicine 06/09/24
--- OUTSIDE RECORDS SUMMARY | 2024-12-04 10:35 | XMS_ITS | Clinical Summary ---
Author Organization [facility] Address [address] [place] [address] Care Team Providers Care Workforce Planning Analyst Name Role Phone Boris Lee MD Unavailable [phone] Lizbeth Mccoy MD Primary Care Provider + Source Comments [facility],non-owned Affiliates and Associated Physician Practices is amultiple site organization consisting of ambulatory clinics and hospital sitesin [place], [place], [place]. This disclosure is being madepursuant to the Care Everywhere program and may not contain all information available regarding this patient. Last updated 18.[facility] [employer] Allergies No known active allergies Medications * [...] this topic Medical Devices Implanted Type Area Cna Instructor Device Identifier Shelf Expiration Date Model / Serial / Lot [place] Sut Healix Adv Dynacord 5.5mm Implanted:Qty: 2 on 09/29/2022 by Akin Schuler MD at [facility] Right: Shoulder [employer] 06/23/2025 [id number] / / [id number] [place] Sut Healix Adv 5.5mm Bcmps Slf Implanted:Qty: 2 on 09/29/2022 by Akin Schuler MD at [facility] Right: Shoulder [employer] 07/24/2025 [id number] / / [id number] Procedures Procedure Name Priority Date/Time Associated Diagnosis Comments GLUCOSE - POINT OF CARE Routine 09/29/2022 9:40 AM CDT from Last 3 Months or Most Recently Relevant to Health Maintenance Results * (ABNORMAL) GLUCOSE - POINT OF CARE (09/29/2022 9:40 AM CDT) Pathologist [facility] Glucose WB/POC 112(H) 70 - 106 mg/dL 09/29/2022 9:46 AM CDT [facility] Specimen Type Venous 09/29/2022 9:46 AM CDT [facility] Blood BLOOD SPECIMEN / Unknown 09/29/2022 9:40 AM CDT 09/29/2022 9:46 AM CDT Akin Schuler MD LAB - POINT OF CARE ORDERABLES F inal Result [facility] [place] [address] from Last 3 Months or Most Recently Relevant to Health Maintenance Insurance ANTHEM ANTHEM Care Teams Workforce Planning Analyst Relationship Specialty Start Date End Date Lizbeth Mccoy MD [address] [place] [address] PCP - General Family Medicine 09/29/22 Boris Lee MD [address] [place] [address] Cardiology 08/19/22
[2024-12-04 10:37] VITALS: BP 96/67; PULSE 67; RESP 18; TEMP 36.9; O2SAT 98
[2024-12-04 11:23] VITALS: BP 120/80; PULSE 72; RESP 18; O2SAT 97
--- OUTSIDE RECORDS SUMMARY | 2024-12-04 11:29 | XMS_ITS | Clinical Summary ---
Author Organization [facility] Address [address] [facility] [place] [address] Care Team Providers Care Foot Setter Name Role Phone Boris Lee MD Unavailable [phone] Lizbeth Mccoy MD Primary Care Provider + Source Comments [facility],non-owned Affiliates and Associated Physician Practices is amultiple site organization consisting of ambulatory clinics and hospital sitesin [place], [place], [place] and [place]. This disclosure is being madepursuant to the Care Everywhere program and may not contain all information available regarding this patient. Last updated 18.[facility] [employer] Allergies No known active allergies Medications * [...] this topic Medical Devices Implanted Type Area General Production Worker Device Identifier Shelf Expiration Date Model / Serial / Lot [place] Sut Healix Adv Dynacord 5.5mm Implanted:Qty: 2 on 09/29/2022 by Akin Schuler MD at [facility] Right: Shoulder [employer] 06/23/2025 [id number] / / [id number] [place] Sut Healix Adv 5.5mm Bcmps Slf Implanted:Qty: 2 on 09/29/2022 by Akin Schuler MD at [facility] Right: Shoulder [employer] 07/24/2025 [id number] / / [id number] Procedures Procedure Name Priority Date/Time Associated Diagnosis Comments GLUCOSE - POINT OF CARE Routine 09/29/2022 9:40 AM CDT from Last 3 Months or Most Recently Relevant to Health Maintenance Results * (ABNORMAL) GLUCOSE - POINT OF CARE (09/29/2022 9:40 AM CDT) Pathologist [facility] Glucose WB/POC 112(H) 70 - 106 mg/dL 09/29/2022 9:46 AM CDT [facility] Specimen Type Venous 09/29/2022 9:46 AM CDT [facility] Blood BLOOD SPECIMEN / Unknown 09/29/2022 9:40 AM CDT 09/29/2022 9:46 AM CDT Akin Schuler MD LAB - POINT OF CARE ORDERABLES F inal Result [facility] [place] [address] from Last 3 Months or Most Recently Relevant to Health Maintenance Insurance ANTHEM ANTHEM Care Teams Foot Setter Relationship Specialty Start Date End Date Lizbeth Mccoy MD [address] [place] [address] PCP - General Family Medicine 09/29/22 Boris Lee MD [address] [place] [address] Cardiology 08/19/22
--- OUTSIDE RECORDS SUMMARY | 2024-12-04 11:29 | XMS_ITS | Clinical Summary ---
Author Organization [address] Address [facility] [place] [address] Care Team Providers Care Optometry Teacher Name Role Phone Ivan Lafleur MD Primary [...] mouth 2 (two) times a day Active uojbewbf53-yoxt-H mfolate-algal 27 mg iron-1.13 mg-581.92 mg capsule [...] Type Department Care Team Description 11/30/2024 Telephone [facility] Cardiology [address] [place] [address] [place] [phone] Boris Lee MD 11/28/2024 Telephone [place] [address] [place] [phone] Boris Lee MD [facility] 11/21/2024 10:00 AM CDT Office Visit [place] [address] [place] [phone] Liliana Landrum NP Paroxysmal atrial fibrillation (HCC) (Primary Dx); Paroxysmal atrial flutter (HCC); Hospital discharge follow-up 11/20/2024 Orders Only [facility] Cardiology [address] [place] [address] [place] [phone] David Jerez MD 11/17/2024 Orders Only [facility] Cardiology [address] [place] [address] [place] [phone] Boris Lee MD 11/15/2024 Telephone [facility] Cardiology [address] [place] [address] [place] [phone] Boris Lee MD 09/25/2024 Telephone [facility] Cardiology [address] [place] [address] [place] [phone] Boris Lee MD from Last 3 Months [...] on file 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
== END 2024-12-04 11:23 | disposition left against medical advice (07) ==
PROVIDERS: PCP Family Medicine
DX: R42 Dizziness and giddiness (principal)
CPT/HCPCS: 82948; 93005; 99199